=== PATIENT | female | born 1980 | race Caucasian/White ===

== ENCOUNTER → 2019-10-18 15:42 | Outpatient (CLI) | payer BC, SELFPAY ==
[2019-10-18 17:18] LABS: Absolute Lymphocyte Count 2.64 X10^3/uL (0.83-4.51); Absolute Neutrophil Count 6.8 X10^3/uL (2.0-7.7); Basophil# 0.02 X10^3/uL; Basophil% 0.2 % (0-1); Eosinophil# 0.03 X10^3/uL; Eosinophils% 0.3 % (0-5); Hematocrit 45.6 % (37-47); Hemoglobin 15.1 g/dL (12.0-15.0); Lymphocyte # 2.64 X10^3/ul (4.0); Lymphocyte % 26.5 % (19-41); Mean Corp Hgb Conc 33.1 g/dL (32-36); Mean Corpuscular Volume 90.7 fL (81-99); Mean Platelet Vol. 10.8 fl (6.2-12.0); Monocyte# 0.47 X10^3/uL; Monocyte% 4.7 % (0-10); NRBC Flagged by Analyzer 0 % (0-5); Neutrophil # 6.78 X10^3/uL (2.7-7.7); Platelet Count 262 K/mm3 (150-450); RBC Distribution Width CV 12.3 % (11.6-14.6); RBC Distribution Width SD 40.4 fl (35.1-43.9); Red Blood Count 5.03 M/mm3 (4.2-5.4)
[2019-10-18 17:49] LABS: Anion Gap 8 (5-15); BUN 15 mg/dL (7-18); BUN/Creat Ratio 17.3 RATIO (10-20); Calcium,Total 9.1 mg/dL (8.5-10.1); Chloride 105 mmol/L (98-107); Creatinine, Serum 0.87 mg/dL (0.55-1.02); EST Glomerular Filtration Rate 78 mL/min (>60); Est Glom Filt Rate - Afr Amer 95 mL/min (>60); Glucose 82 mg/dL (74-106); Magnesium 2.4 mg/dL (1.6-2.6); Potassium 3.4 mmol/L (3.5-5.1); Sodium Level 139 mmol/L (136-145); T4 Free Direct 1.12 ng/dL (0.76-1.46); Thyroid Stim Hormone (TSH) 3.03 uIU/mL (0.358-3.74)
== END ==
PROVIDERS: Family Provider Family Medicine; PCP Family Medicine; Visit Provider Family Medicine
DX: F41.8 Other specified anxiety disorders (principal); R53.83 Other fatigue; R00.2 Palpitations
CPT/HCPCS: 36415; 80048; 83735; 84439; 84443; 85025

== ENCOUNTER → 2019-10-29 15:43 | Outpatient (CLI) | payer BC, SELFPAY ==
[2015-01-08 06:23] VITALS: BMI 47.0
[2019-10-29 17:24] LABS: Anion Gap 5 (5-15); BUN 12 mg/dL (7-18); BUN/Creat Ratio 15.1 RATIO (10-20); Calcium,Total 8.8 mg/dL (8.5-10.1); Chloride 107 mmol/L (98-107); Creatinine, Serum 0.79 mg/dL (0.55-1.02); EST Glomerular Filtration Rate 86 mL/min (>60); Est Glom Filt Rate - Afr Amer 105 mL/min (>60); Glucose 82 mg/dL (74-106); Potassium 3.9 mmol/L (3.5-5.1); Sodium Level 139 mmol/L (136-145)
== END ==
LOC: LAB.FUTURE 15:53 → BFHLAB 16:01
PROVIDERS: Family Provider Family Medicine; PCP Family Medicine; Visit Provider Family Medicine
DX: E87.6 Hypokalemia (principal)
CPT/HCPCS: 36415; 80048

== ENCOUNTER → 2019-11-01 08:51 | Outpatient (CLI) | payer BC, SELFPAY | PROVIDERS: Family Provider Family Medicine; PCP Family Medicine; Referring Provider Family Medicine; Visit Provider Family Medicine | DX: R42 Dizziness and giddiness (principal) | CPT/HCPCS: 93225; 93226 ==

== ENCOUNTER → 2020-01-27 15:27 | Outpatient (CLI) | payer BC, SELFPAY ==
[2015-01-08 06:23] VITALS: BMI 47.0
[2020-01-27 17:34] LABS: Anion Gap 6 (5-15); BUN 14 mg/dL (7-18); BUN/Creat Ratio 15.5 RATIO (10-20); Calcium,Total 9.2 mg/dL (8.5-10.1); Chloride 103 mmol/L (98-107); EST Glomerular Filtration Rate 74 mL/min (>60); Est Glom Filt Rate - Afr Amer 90 mL/min (>60); Glucose 81 mg/dL (74-106); Potassium 3.6 mmol/L (3.5-5.1); Sodium Level 139 mmol/L (136-145)
== END ==
PROVIDERS: PCP Family Medicine; Visit Provider Family Medicine
DX: E87.6 Hypokalemia (principal)
CPT/HCPCS: 36415; 80048

== ENCOUNTER → 2020-02-13 16:41 | Outpatient (CLI) | payer BC, SELFPAY ==
--- NOTE | 2020-02-13 16:46 | CT_ITS ---
STUDY: CT MAXILLOFACIAL SINUSES REASON FOR EXAM: Female, 39 years old. SINUSITIS RADIATION DOSAGE (If Supplied By Facility): CTDIvol = ( 33.06 ) mGy, DLP = ( 862.77 ) mGycm TECHNIQUE: The patient was scanned in a multi detector CT scanner. High resolution axial imaging was performed without the administration of intravenous contrast material. Sagittal and coronal images were reconstructed. Individualized dose optimization techniques were used for this CT. COMPARISON: None. FINDINGS: FRONTAL SINUSES: Normal aeration, without mucosal inflammatory disease. ETHMOIDAL SINUSES: Normal aeration, without mucosal inflammatory disease. MAXILLARY SINUSES: Normal aeration, without mucosal inflammatory disease. SPHENOIDAL SINUSES: Normal aeration, without mucosal inflammatory disease. There is patency of the bilateral maxillary infundibuli with normal uncinate processes, ethmoid bullae, and hiatus semilunaris. Normal bilateral middle turbinates. Normal bilateral inferior turbinates. Normal midline nasal septum. There is patency of the bilateral nasal airways. The visualized osseous structures are normal. The visualized bilateral orbital contents are normal. CT/Sinus/Facial Bone IMPRESSION: Normal CT examination of the maxillofacial sinuses. Electronically Signed: Gideon Hylton MD at 17:26 EDT , Service support ,
== END ==
PROVIDERS: PCP Family Medicine; Referring Provider Otolaryngology; Visit Provider Otolaryngology
DX: J32.9 Chronic sinusitis, unspecified (principal)
CPT/HCPCS: 70486

== ENCOUNTER → 2020-03-31 15:35 | Outpatient (CLI) | payer BC, SELFPAY ==
[2015-01-08 06:23] VITALS: BMI 47.0
--- NOTE | 2020-03-31 15:42 | RAD_ITS ---
STUDY: X-RAY - CERVICAL SPINE REASON FOR EXAM: Female, 39 years old. CERVICALGIA PAIN IN CERVICAL SPINE TECHNIQUE: 7 view(s) of the cervical spine were obtained. COMPARISON: None FINDINGS: Normal anterior atlantoaxial articulation. Normal odontoid process. No subluxation on the flexion or extension views to suggest instability. Normal cervical lordosis. Normal vertebral bodies and endplates. Normal disc space heights. Normal visualized intervertebral neuroforamina. The soft tissue structures are unremarkable. RAD/Cerv Spine Obl/Flex/Ext Comp IMPRESSION: Normal x-ray examination of the visualized cervical spine. Electronically Signed: Huey Camejo MD at 16:13 EDT Tel , Service support ,
== END ==
PROVIDERS: PCP Family Medicine; Referring Provider Psychiatry & Neurology Neurology; Visit Provider Psychiatry & Neurology Neurology
DX: M54.2 Cervicalgia (principal)
CPT/HCPCS: 72052

== ENCOUNTER → 2020-11-03 07:19 | Outpatient (CLI) | payer BC, SELFPAY ==
[2020-10-20 08:19] VITALS: BMI 29.5
--- NOTE | 2020-11-03 07:29 | MRI_ITS ---
STUDY: MRI BRAIN WITH AND WITHOUT CONTRAST REASON FOR EXAM: Female, 40 years old. Migraine H/A, lightheaded TECHNIQUE: Standardized multiplanar fat and water weighted pulse sequences were obtained. IV Yes YES was administered for the contrast portion of the examination. COMPARISON: None. FINDINGS: Normal size of the ventricles and extra-axial spaces for the patient''s age. Normal white matter tracts of the supratentorial brain. There is no evidence for recent intracranial ischemia or other cause of cytotoxic edema on diffusion weighted imaging (DWI). Normal T2* images of the brain without demonstrated susceptibility artifact. There is no demonstrated hemosiderin stain. Normal bilateral basal ganglia. Normal thalami. There is no extra-axial fluid accumulation. Normal flow voids within the major intracranial circulation suggesting patency by spin echo criteria. Normal venous enhancement. There is no enhancing intra-axial or extra-axial abnormality. Normal sella turcica, pituitary gland, infundibular stalk, optic chiasm and hypothalamus. Normal tectal plate and pineal gland. Normal midbrain, elva and medulla. Normal cerebellum. Normal basal cisterns. Normal bilateral temporal bones. Normal bilateral internal auditory canals. No demonstrated orbital abnormality, within the constraints of a routine brain study. Normal visualized paranasal sinuses. Normal calvarium and skull base. Normal visualized soft tissue structures. Normal visualized upper cervical spine. MRI/Brain W/WO Contrast IMPRESSION: Normal unenhanced and enhanced MRI of the brain. Electronically Signed: Huey Camejo MD at 8:45 EST Tel , Service support ,
== END ==
PROVIDERS: PCP Family Medicine; Referring Provider Psychiatry & Neurology Neurology; Visit Provider Psychiatry & Neurology Neurology
DX: G43.909 Migraine, unspecified, not intractable, without status migrainosus (principal)
CPT/HCPCS: 70553; A9575

== ENCOUNTER → 2020-11-11 07:02 | Outpatient (CLI) | payer BC, SELFPAY ==
[2020-10-20 08:19] VITALS: BMI 29.5
--- NOTE | 2020-11-11 07:05 | BI_ITS ---
MAMMOGRAPHY - BILATERAL SCREENING REASON FOR EXAM: Female, 40 years old. Routine annual screening examination. PERTINENT HISTORY: Aunt with breast cancer. TECHNIQUE: Digital bilateral breast ernestina (3D mammographic acquisition) in the CC and MLO projections. 2-D mediolateral oblique (MLO) and craniocaudad (CC) views of both breasts were obtained. CAD: Full Field Digital Mammography with Computer Added Detection was performed. COMPARISON: None. Baseline examination. FINDINGS: Breast Composition: The breasts are extremely dense, which lowers the sensitivity of mammography. There are no dominant masses or suspicious calcifications. Small bilateral benign-appearing axillary lymph nodes. No other significant abnormalities are identified. There has been no significant change since the prior study. BI/SCREEN MAMM (CAD) W/ERNESTINA BILAT IMPRESSION: Stable bilateral screening mammogram. Yearly follow-up mammogram recommended. (A) ASSESSMENT CATEGORY: BIRADS Category 2: Benign. A letter regarding these results will be sent to the patient by the facility within 30 days. Approximately 10% of breast cancers are not detected by mammography. A normal mammogram should not delay biopsy of a clinically suspicious abnormality. [id number] Electronically Signed: Ry Lee, at 8:14 EST , Service support ,
[2020-11-11 08:10] LABS: Mucous, Urine 0 SEEN /hpf (<or=2+); Red Blood Cells-Urine 0 SEEN /hpf (0-5); White Blood Cells 0 SEEN /hpf (0-5)
[2020-11-11 08:49] LABS: Color, Urine Yellow (Yellow); Glucose, Dipstick Normal (Normal); Ketone-Dipstick Negative (Negative); Leukocyte Esterase-Dipstick Negative /ul (Negative); Nitrite-Dipstick Negative (Negative); Occult Blood-Urine Negative /ul (Negative); Protein-Dipstick Negative (Negative); Urine Bilirubin Dipstick Negative (Negative); Urine Clarity Sl. Cloudy (Clear); Urine Urobilinogen Normal (Normal)
[2020-11-11 08:58] LABS: Bacteria 1+ /hpf (None Seen); Squamous Epithelial Cells - UA 0-5 SEEN /hpf (5-10)
== END ==
PROVIDERS: Nurse Practitioner Family; PCP Family Medicine; Referring Provider Obstetrics & Gynecology; Visit Provider Obstetrics & Gynecology
DX: Z12.31 Encounter for screening mammogram for malignant neoplasm of breast (principal); Z80.3 Family history of malignant neoplasm of breast; R82.90 Unspecified abnormal findings in urine
CPT/HCPCS: 77063; 77067; 81001; 87086; 87088

== ENCOUNTER → 2021-01-28 09:58 | Outpatient (CLI) | payer OTHER, SELFPAY ==
[2021-01-28 10:39] LABS: Absolute Lymphocyte Count 1.79 X10^3/uL (0.83-4.51); Absolute Neutrophil Count 8.7 X10^3/uL (2.0-7.7); Basophil# 0.03 X10^3/uL; Basophil% 0.3 % (0-1); Eosinophil# 0.04 X10^3/uL; Eosinophils% 0.4 % (0-5); Hematocrit 48.1 % (37-47); Hemoglobin 15.8 g/dL (12.0-15.0); Lymphocyte # 1.79 X10^3/ul (4.0); Lymphocyte % 16.2 % (19-41); Mean Corp Hgb Conc 32.8 g/dL (32-36); Mean Corpuscular Hgb 30.6 pg (27.0-32.0); Mean Platelet Vol. 10.4 fl (6.2-12.0); Monocyte% 3.6 % (0-10); NRBC Flagged by Analyzer 0 % (0-5); Neutrophil # 8.74 X10^3/uL (2.7-7.7); Neutrophil % 79.2 % (47-70); Platelet Count 262 K/mm3 (150-450); RBC Distribution Width CV 12.3 % (11.6-14.6); RBC Distribution Width SD 42.1 fl (35.1-43.9); Red Blood Count 5.17 M/mm3 (4.2-5.4)
[2021-01-28 11:11] LABS: ALB/GLOB Ratio 1.1 RATIO (0.9-2.4); AST(SGOT) 17 U/L (15-37); Alanine Aminotransfer ALT/SGPT 27 U/L (13-56); Albumin, Serum 4.3 g/dL (3.2-5.0); Alkaline Phosphatase 71 U/L (45-117); Anion Gap 6 (5-15); BUN 12 mg/dL (7-18); Calcium,Total 9.4 mg/dL (8.5-10.1); Chloride 108 mmol/L (98-107); Creatinine, Serum 0.86 mg/dL (0.55-1.02); EST Glomerular Filtration Rate 79 mL/min (>60); Est Glom Filt Rate - Afr Amer 95 mL/min (>60); Glucose 96 mg/dL (74-106); Potassium 4.5 mmol/L (3.5-5.1); Protein, Total 8.3 g/dL (6.4-8.2); Sodium Level 141 mmol/L (136-145); Thyroid Stim Hormone (TSH) 2.01 uIU/mL (0.358-3.74)
[2021-01-28 12:50] LABS: Vitamin B12 1249 pg/mL (211-911)
== END ==
PROVIDERS: PCP Family Medicine; Referring Provider Nurse Practitioner Family; Visit Provider Nurse Practitioner Family
DX: G43.909 Migraine, unspecified, not intractable, without status migrainosus (principal); J32.9 Chronic sinusitis, unspecified; R53.83 Other fatigue
CPT/HCPCS: 36415; 80053; 82306; 82607; 84443; 85025

== ENCOUNTER → 2021-03-30 08:34 | Outpatient (CLI) | payer OTHER, SELFPAY ==
[2021-03-30 09:35] LABS: Absolute Lymphocyte Count 2.24 X10^3/uL (0.83-4.51); Absolute Neutrophil Count 6.4 X10^3/uL (2.0-7.7); Basophil# 0.03 X10^3/uL; Basophil% 0.3 % (0-1); Eosinophil# 0.07 X10^3/uL; Eosinophils% 0.8 % (0-5); Hemoglobin 15.7 g/dL (12.0-15.0); Lymphocyte # 2.24 X10^3/ul (0.83-4.51); Lymphocyte % 24.1 % (19-41); Mean Corp Hgb Conc 32.7 g/dL (32-36); Mean Corpuscular Hgb 30.3 pg (27.0-32.0); Mean Corpuscular Volume 92.5 fL (81-99); Mean Platelet Vol. 10.8 fl (6.2-12.0); Monocyte# 0.53 X10^3/uL; Monocyte% 5.7 % (0-10); NRBC Flagged by Analyzer 0 % (0-5); Neutrophil # 6.39 X10^3/uL (2.7-7.7); Neutrophil % 68.7 % (47-70); Platelet Count 255 K/mm3 (150-450); RBC Distribution Width CV 12.2 % (11.6-14.6); RBC Distribution Width SD 41.9 fl (35.1-43.9); Red Blood Count 5.19 M/mm3 (4.2-5.4); White Blood Count 9.3 K/mm3 (4.4-11.0)
[2021-03-30 10:05] LABS: AST(SGOT) 18 U/L (15-37); Alanine Aminotransfer ALT/SGPT 32 U/L (13-56); Albumin, Serum 3.9 g/dL (3.2-5.0); Alkaline Phosphatase 60 U/L (45-117); Bilirubin, Direct 0.31 mg/dL (0.00-0.30); Globulin 3.6 g/dL (2.2-4.2); Protein, Total 7.5 g/dL (6.4-8.2)
== END ==
PROVIDERS: PCP Family Medicine; Referring Provider Nurse Practitioner Family; Visit Provider Nurse Practitioner Family
DX: D58.2 Other hemoglobinopathies (principal); R79.89 Other specified abnormal findings of blood chemistry
CPT/HCPCS: 36415; 80076; 85025

== ENCOUNTER → 2021-05-11 09:52 | Outpatient (CLI) | payer OTHER, SELFPAY ==
[2021-05-11 09:09] VITALS: BMI 31.2
--- NOTE | 2021-05-11 09:54 | RAD_ITS ---
STUDY: X-RAY - CERVICAL SPINE REASON FOR EXAM: Female, 40 years old. Chronic neck pain; dizziness TECHNIQUE: 3 view(s) of the cervical spine were obtained. COMPARISON: Comparison is made with prior study dated 03/31/2020. FINDINGS: Normal anterior atlantoaxial articulation. Normal odontoid process. There is straightening of the normal cervical lordosis. Normal vertebral bodies and endplates. Normal disc space heights. Normal visualized intervertebral neuroforamina. The soft tissue structures are unremarkable. RAD/Cerv Spine 2 or 3 Views IMPRESSION: There is straightening of the normal cervical lordosis. Electronically Signed: Ry Lee MD at 13:36 EDT , Service support ,
== END ==
PROVIDERS: PCP Family Medicine; Referring Provider Nurse Practitioner Family; Visit Provider Nurse Practitioner Family
DX: M54.2 Cervicalgia (principal); R42 Dizziness and giddiness; E55.9 Vitamin D deficiency, unspecified
CPT/HCPCS: 36415; 72040; 82306

== ENCOUNTER → 2021-05-26 10:15 | Outpatient (CLI) | payer OTHER, SELFPAY ==
[2021-05-11 09:09] VITALS: BMI 31.2
--- NOTE | 2021-05-26 10:15 | MRI_ITS ---
STUDY: MRI CERVICAL SPINE WITHOUT CONTRAST REASON FOR EXAM: Female, 40 years old. chronic neck pain; PT completed TECHNIQUE: Standardized fat and water weighted pulse sequences were obtained in the sagittal and axial planes. COMPARISON: X-ray 05/11/2021 FINDINGS: Normal foramen magnum and brainstem-cervical cord junction. Normal craniovertebral junction. Normal anterior atlantoaxial articulation. Normal odontoid process. Normal cervical lordosis. Normal vertebral bodies and posterior osseous elements. C2-3: Normal endplates. Normal disc height, signal and morphology. Normal central canal and intervertebral neural foramina. C3-4: Normal endplates. Normal disc height, signal and morphology. Normal central canal and intervertebral neural foramina. C4-5: Normal endplates. Normal disc height, signal and morphology. Normal central canal and intervertebral neural foramina. C5-6: Normal endplates. Normal disc height, signal and morphology. Normal central canal and intervertebral neural foramina. C6-7: Normal endplates. Normal disc height, signal and morphology. Normal central canal and intervertebral neural foramina. C7-T1: Normal endplates. Normal disc height, signal and morphology. Normal central canal and intervertebral neural foramina. Normal cervical cord. Normal visualized soft tissue structures. MRI/Spine Cervical (Routine) IMPRESSION: Normal unenhanced MR examination of the cervical spine. Electronically Signed: Huey Camejo MD at 18:39 EDT Tel , Service support ,
== END ==
PROVIDERS: PCP Family Medicine; Referring Provider Nurse Practitioner Family; Visit Provider Nurse Practitioner Family
DX: M54.2 Cervicalgia (principal); G89.29 Other chronic pain; M53.82 Other specified dorsopathies, cervical region
CPT/HCPCS: 72141

== ENCOUNTER 2021-07-02 07:30 | Outpatient (RCR) | payer OTHER, SELFPAY ==
[2020-10-20 08:19] VITALS: BMI 29.5
--- NOTE | 2021-04-02 10:21 | HP.PTEVAL_ITS ---
Patient's Visit Information ELLE GOODE is a 40 year old F referred to Physical Therapy by BETZY Martinez with a diagnosis of BPV and cervicalgia. Date of Evaluation: 04/02/21 Physical Therapist: Luis Severino, PATT, OCS, CSCS - Visit Plan Frequency: 2x /Week Duration: 4-6 Weeks Plan: 2x/week for 4 weeks for. 1. Treated with R epey today and monitor need for further positional or possible VOR treatments. 2. Please treat each session with STM to R c/s, R rot mobs and PROM to neck, ICT adn strengthening of neck/posture. - Subjective Dr. Mancilla office sent over as she has some lightheadedness and BANKS starting in September of 2019. Been to ENT, 2 neuro and trying to figure out what is going on. Has had scans of head which were normal(CT adn MRI). X ray of neck was OA. Had VNG adn it was clear. Had halter monitor to rule out heart. Bloodwork was OK(just elevated hemoglobin). Symptoms are loghtheadedness adn BANKS adn insidous onset. Lightheadedness was first, no spinning but feels like lightheaded for a second if stands up too quick.. Makes her have to move slow. Pretty consistent. Looking up for long time can cause it. Sleeping on back can give her a BANKS, sleeping on side is fine. Long car rides can bother her. Putting back to wash hair can give BANKS. BANKS is usually posterior behind ears and sometimes daily other times about 2x/week. Balance is fine, no falls. Working from home and no problem sittign at computer. Looking down at work and hunching can give her some neck pain. - Pain BANKS Pain Intensity (Out of 10): 6 Pain Intensity Range: 0, 5 Neck pain Pain Intensity (Out of 10): 0 Pain Intensity Range: 0, 4 Comment: looking down - Objective walks normal and trasnfers I, steps reciprocal without rail. Posture is forward head and scapula with loss of lordosis slightly. cervical AROM is full and only abnormaity is some slight R rotation loss of ROM and pain with compression on R side slightly. reflexes and sensation UE WNl to gross light touch. strength UE symmetrical. - VAT. slight + R c/s compression test. - L hallpike oli. + R hallpike for lightheaded 8 seconds asymmetrically but no obvious nystagmus. Oculomotor: no nystagmus with gaze or head shake, slight dizzy with head shake(lightheaded). - skew eye deviation. - ocular tilt. - head thrust. pursuit and saccades and VOR are all normal and asymptomatic. - Balance Scores Functional Gait Assessment Score: 30 % Disability: 0 - Goals Goal 1:: abolish lightheadedness and BANKS Goal Time Frame: 4-6 Weeks Goal 2:: Pt feel 90% better overall and able to walk without symptoms Goal Time Frame: 4-6 Weeks Goal 3:: I management of condition to minize future episodes. Goal Time Frame: 4-6 Weeks Goal 4:: DHI 0 score Goal Time Frame: 4-6 Weeks - Rehabilitation Potential Physical Therapy Diagnosis: H and lightheaded unknown etiology, possible BPV vs cervcogenic. Rehabilitation Potential: Questionable - Anticipated Interventions Patient/Client Instruction: Educate patient on: Condition For the Purpose of:: To decrease pain, To increase tolerance to activity/condition/position Therapeutic Exercise to Include: Strength training, Flexibilty training, Passive ROM Comment: positional and adaptation For the Purpose of:: To decrease pain, To increase ROM, To increase tolerance to activity/condition/position Manual Therapy Techniques to Include: Soft tissue mobilization For the Purpose of:: To decrease pain, To increase ROM, To increase tolerance to activity/condition/position Thank you for the opportunity to evaluate your patient. For Medicare and Medicare HMO plans, please review the plan of care and approve it. It will need to be FAXED BACK to us at [phone] for Medicare purposes. For Medicare only, by signing this I certify the plan of care. Please let me know if there are questions or concerns regarding this plan of care. Physician Signature: Date:
--- NOTE | 2021-04-23 09:21 | HP.PTREVAL_ITS ---
Isis Mendoza, CAFETERIA COUNTER ATTENDANT-C, It has been my pleasure to treat ELLE GOODE over the last 7 visits for BPV and cervicalgia. Please see the progress note below for an update on the physical therapy plan of care! Subjective: Going the right way. Lightheadedness is sporadic but has very little over last two weeks. Still has tightness in R neck, treatment helps but not for long. Have not had any H in the last couple weeks. Been doing a lot of work around the house that she would have avoided prior. Doing exercises at home.Doing BD also 1x/day 8 reps. Wants to work on ex at home from this point until doctor f/u in two weeks. Lights in [place] seem to trigger lightheadedness yesterday Objective/Function: R rotation c.s 70 v 75 L and slight catch at end trasniently. Improving. No tenderness in soft tissue of neck today, slight + c/s compression test. - B garry;william oli today but still some slight dizzyness with r hallpike, will continue BD ex at home for this as they are improving. Walking well with good balance. VOR , VORx2, VOR in stairwell with spindles cause very little lightheadedness and no lingering. - ocular tilt. -skew eye deviation. no nystagmus today with gaze or head shake. Overall improving and feeling like she can continue to make progress on own with HEP. Plan Plan: Pt to cotninue HEP until doctor f/u in two weeks and then call if needs return. If she continue to improve, she will probably not need further therapy. And will d/c or reassess condition as needed after doc f/u in mid April. Pt to call. Goals Goal 1:: abolish lightheadedness and BANKS Goal Time Frame: 4-6 Weeks Goal Progress: near met Goal 2:: Pt feel 90% better overall and able to walk without symptoms Goal Time Frame: 4-6 Weeks Goal Progress: 75% Goal 3:: I management of condition to minize future episodes. Goal Time Frame: 4-6 Weeks Goal Progress: Goal Met Goal 4:: DHI 0 score Goal Time Frame: 4-6 Weeks Goal Progress: Progressing Anticipated Interventions Patient/Client Instruction: Educate patient on: Condition For the Purpose of:: To decrease pain, To increase tolerance to activity/condition/position Therapeutic Exercise to Include: Strength training, Flexibilty training, Passive ROM Comment: positional and adaptation For the Purpose of:: To decrease pain, To increase ROM, To increase tolerance to activity/condition/position Manual Therapy Techniques to Include: Soft tissue mobilization For the Purpose of:: To decrease pain, To increase ROM, To increase tolerance to activity/condition/position Please do not hesitate to contact me at [phone] by phone or if you have questions or concerns regarding this new plan of care! Sincerely, Luis Severino, DPT, OCS, CSCS
--- NOTE | 2021-05-13 15:17 | HP.PTREVAL ---
Isis Mendoza, FARM EQUIPMENT MAINTENANCE SUPERVISOR-C, It has been my pleasure to treat ELLE GOODE over the last 8 visits for BPV and cervicalgia. Please see the progress note below for an update on the physical therapy plan of care! Subjective: Saw doctor. Lightheadedness a little worse without traction. Some minor pain in neck centrally /10. she is back in the office so it is more normal lately. Doctor wants continue traction intermittently. No dizzyness with exercise at home. Still doing stretching adn strengthening at home. Mobility is still good like last time, lightheadedness slightly worse. x rays of the neck today were OK. Objective/Function: 80 degrees B rotation 85 extension without pain. 4/5 UE strength withotu difficulty. No unusual tenderness c/s. Doctor wants more traction therapy adn it is appropriate for her subjective complaints. fair prognosis Plan Plan: weekly x 6 weeks for ICT only(pt doing rest of strength adn postural work/ stretches at home. Goals Goal 1:: abolish lightheadedness and BANKS Goal Time Frame: 4-6 Weeks Goal Progress: near met Goal 2:: Pt feel 90% better overall and able to walk without symptoms Goal Time Frame: 4-6 Weeks Goal Progress: 75% Goal 3:: I management of condition to minize future episodes. Goal Time Frame: 4-6 Weeks Goal Progress: Goal Met Goal 4:: DHI 0 score Goal Time Frame: 4-6 Weeks Goal Progress: Progressing Goal 5:: Lightheadedness abolished for 2 weeks. Goal Time Frame: 4-6 Weeks Goal Progress: NEW GOAL Anticipated Interventions Patient/Client Instruction: Educate patient on: Condition For the Purpose of:: To decrease pain, To increase tolerance to activity/condition/position Therapeutic Exercise to Include: Strength training, Flexibilty training, Passive ROM Comment: positional and adaptation For the Purpose of:: To decrease pain, To increase ROM, To increase tolerance to activity/condition/position Manual Therapy Techniques to Include: Soft tissue mobilization For the Purpose of:: To decrease pain, To increase ROM, To increase tolerance to activity/condition/position Please do not hesitate to contact me at [phone] by phone or if you have questions or concerns regarding this new plan of care! Sincerely, Luis Severino, DPT, OCS, CSCS
--- NOTE | 2021-07-02 08:16 | HP.PTDCSUM_ITS ---
It has been my pleasure to treat ELLE GOODE referred by BETZY Martinez, with the diagnosis of BPV and cervicalgia for a total of 14 visit(s). Discharge Date: 07/02/21 Please see the following information for a summary of their discharge status. Subjective: I think we are getting better. Don't have as many days where generally lightheaded. Still gets dysequilibrium with bending or turning too fast. It is not improving like the lightheadedness and neck pain has. No outright spinning. Can work on things without neck hurting as much. Painted a room this week and was 3/10 in neck for a n hour or so. No f/u with doctor until end July. Traction seems to help as she has not been in for two weeks adn things are starting to feel off. Home exercises of chin tucks and necks streetches seem to help. Strenghtening with green adn blue at home 2x15 BANKS Pain Intensity (Out of 10): 0 Neck pain Pain Intensity (Out of 10): 0 % Improvement: 80 Objective/Function: good balance. - B hallpike oli and roll test. Full cervi alana AROM without pain today, Full UE AROM and 4+/5 strength without pain or myotomal problems. Posture is good without cueing today. Overall much better Goal 1:: abolish lightheadedness and BANKS Goal Progress: near met Goal 2:: Pt feel 90% better overall and able to walk without symptoms Goal Progress: 80 Goal 3:: I management of condition to minize future episodes. Goal Progress: Goal Met Goal 4:: DHI 0 score Goal Progress: much improved 6 Goal 5:: Lightheadedness abolished for 2 weeks. Goal Progress: Not Progressing Plan: Pt to marita with strengtha dn ROM neck at home and [place] exercises up to 8 reps daily until lightheaded gone or doctor f/u. D/C PT Discharge Comments: to doctor in July. If there are questions or concerns regarding this patient's physical therapy, please feel free to call me at [phone]. Thank you for the referral of this patient. Sincerely, Luis Severino, DPT, OCS, CSCS Balance/Gait/Functional tests - Balance/Special Test Scores Functional Gait Assessment Score: 30 % Disability: 0 Dizziness Score: 6
== END 2021-07-02 19:00 | disposition home or self-care (01) ==
LOC: PT 07:30
PROVIDERS: PCP Family Medicine; Referring Provider Nurse Practitioner Family; Visit Provider Nurse Practitioner Family
DX: M54.2 Cervicalgia (principal); H81.10 Benign paroxysmal vertigo, unspecified ear
CPT/HCPCS: 97012; 97110; 97140; 97162; 97164; 97530

== ENCOUNTER → 2021-08-17 09:01 | Outpatient (CLI) | payer OTHER, SELFPAY ==
--- NOTE | 2021-08-17 09:08 | BI_ITS ---
MAMMOGRAPHY - BILATERAL DIAGNOSTIC REASON FOR EXAM: Female, 41 years old. Right breast thickening and achiness. PERTINENT HISTORY: Aunt with breast cancer. TECHNIQUE: Digital bilateral breast jerrod (3D mammographic acquisition) in the CC and MLO projections. 2-D mediolateral oblique (MLO) and craniocaudad (CC) views of both breasts were obtained. CAD: Full Field Digital Mammography with Computer Added Detection was performed. COMPARISON: Comparison is made with prior study dated 11/11/2020. FINDINGS: Breast Composition: The breasts are extremely dense, which lowers the sensitivity of mammography. There are no dominant masses or suspicious calcifications. No other significant abnormalities are identified. There has been no significant change since the prior study. BI/DIAG MAMM W/CAD, BILAT IMPRESSION: Stable bilateral diagnostic mammogram. One year follow-up recommended. (A) ASSESSMENT CATEGORY: BIRADS Category 1: Negative. A letter regarding these results will be sent to the patient by the facility within 30 days. Approximately 10% of breast cancers are not detected by mammography. A normal mammogram should not delay biopsy of a clinically suspicious abnormality. Electronically Signed: Ry Lee MD at 11:10 EDT , Service support ,
--- NOTE | 2021-08-17 09:08 | US_ITS ---
STUDY: ULTRASOUND BREAST - RIGHT REASON FOR EXAM: Female, 41 years old. Pain in the right breast. TECHNIQUE: Axial and longitudinal images of the RIGHT breast were performed with a high resolution ultrasound transducer. # OF IMAGES: 17 COMPARISON: Comparison is made with prior mammogram done earlier today. FINDINGS: RIGHT Breast: The upper outer quadrant of the right breast was examined by ultrasound. No sonographic abnormality seen. US/Breast Limited Unilateral IMPRESSION: Unremarkable sonographic examination. ASSESSMENT CATEGORY: BIRADS Category 1: Negative. A letter regarding these results will be sent to the patient by the facility within 30 days. Electronically Signed: Ry Lee MD at 10:34 EDT , Service support ,
== END ==
PROVIDERS: PCP Family Medicine; Referring Provider Obstetrics & Gynecology; Visit Provider Obstetrics & Gynecology
DX: N64.4 Mastodynia (principal)
CPT/HCPCS: 76642; 77062; 77066; G0279

== ENCOUNTER → 2021-10-19 14:52 | Outpatient (CLI) | payer OTHER, SELFPAY ==
[2021-10-19 17:43] LABS: Absolute Lymphocyte Count 2.78 X10^3/uL (0.83-4.51); Basophil# 0.04 X10^3/uL; Basophil% 0.3 % (0-1); Eosinophil# 0.09 X10^3/uL; Eosinophils% 0.7 % (0-5); Hematocrit 46.7 % (37-47); Hemoglobin 15.2 g/dL (12.0-15.0); Lymphocyte # 2.78 X10^3/ul (0.83-4.51); Lymphocyte % 20.6 % (19-41); Mean Corp Hgb Conc 32.5 g/dL (32-36); Mean Corpuscular Hgb 29.5 pg (27.0-32.0); Mean Corpuscular Volume 90.5 fL (81-99); Mean Platelet Vol. 9.8 fl (6.2-12.0); Monocyte# 0.52 X10^3/uL; Monocyte% 3.9 % (0-10); NRBC Flagged by Analyzer 0 % (0-5); Neutrophil # 10.01 X10^3/uL (2.7-7.7); Neutrophil % 74.3 % (47-70); Platelet Count 280 K/mm3 (150-450); RBC Distribution Width SD 39.8 fl (35.1-43.9); Red Blood Count 5.16 M/mm3 (4.2-5.4); White Blood Count 13.5 K/mm3 (4.4-11.0)
[2021-10-19 18:01] LABS: Vitamin D,25 Hydroxy 39.9 ng/mL
[2021-10-19 18:05] LABS: AST(SGOT) 18 U/L (15-37); Alanine Aminotransfer ALT/SGPT 33 U/L (13-56); Albumin, Serum 4.1 g/dL (3.2-5.0); Alkaline Phosphatase 75 U/L (45-117); Bilirubin, Direct 0.31 mg/dL (0.00-0.30); Protein, Total 8.1 g/dL (6.4-8.2)
== END ==
PROVIDERS: PCP Family Medicine; Referring Provider Nurse Practitioner Family; Visit Provider Nurse Practitioner Family
DX: R79.89 Other specified abnormal findings of blood chemistry (principal); R17 Unspecified jaundice
CPT/HCPCS: 36415; 80076; 82306; 85025

== ENCOUNTER → 2021-11-25 11:40 | Outpatient (CLI) | payer OTHER, SELFPAY ==
[2021-11-25 12:14] LABS: Hematocrit 43.2 % (37-47); Hemoglobin 14.5 g/dL (12.0-15.0); Mean Corp Hgb Conc 33.6 g/dL (32-36); Mean Corpuscular Hgb 30.3 pg (27.0-32.0); Mean Corpuscular Volume 90.4 fL (81-99); Mean Platelet Vol. 9.8 fl (6.2-12.0); Platelet Count 234 K/mm3 (150-450); RBC Distribution Width CV 12.3 % (11.6-14.6); RBC Distribution Width SD 40.2 fl (35.1-43.9); Red Blood Count 4.78 M/mm3 (4.2-5.4); White Blood Count 9.7 K/mm3 (4.4-11.0)
== END ==
PROVIDERS: PCP Family Medicine; Visit Provider Nurse Practitioner Family
DX: R79.89 Other specified abnormal findings of blood chemistry (principal)
CPT/HCPCS: 36415; 85027

== ENCOUNTER 2022-01-04 08:39 | Outpatient (CLI) | payer OTHER, SELFPAY ==
[2022-01-04 09:32] LABS: D-Dimer Quantitative (DVT/PE) 0.68 FEU/ug/m (0.27-0.49)
--- NOTE | 2022-01-04 13:17 | VDLE_ITS ---
Reason For Study: pain Procedure LEFT This is a venous duplex using B-mode, color GSV is normal. flow and spectral Doppler. CFV is compressible, spontaneous, phasic, Exam performed in department. competent, and demonstrates normal The exam was abbreviated due to the COVID 19 augmentation. protocol. FV is compressible, spontaneous, phasic, The exam was diagnostic. competent and demonstrates normal A preliminary report was called and/or faxed augmentation. to Dr. Aleks Recio. POP V is compressible, spontaneous, phasic, competent and demonstrates normal augmentation. T/P Trunk is compressible. PTV is compressible. LT PerV is compressible. VL/Venous Duplex US, Unilateral Interpretation Summary There is no evidence of left lower extremity deep vein thrombosis. Left great s aphenous vein appears patent and compressible segmentally. Abbreviated COVID-19 protocol utilized Ordering Physician: Edu Recio Performed By: Rafal Ferguson RVT
== END 2022-01-04 23:59 | disposition home or self-care (01) ==
PROVIDERS: PCP Family Medicine; Referring Provider Orthopaedic Surgery; Visit Provider Orthopaedic Surgery
DX: D17.24 Benign lipomatous neoplasm of skin and subcutaneous tissue of left leg (principal); M79.662 Pain in left lower leg
CPT/HCPCS: 36415; 85379; 93971

== ENCOUNTER 2022-01-05 09:00 | Emergency (ER) | payer OTHER, SELFPAY ==
[2022-01-05 09:01] VITALS: BP 150/97; PULSE 89; RESP 16; TEMP 36.8; O2SAT 99; BMI 29.9
--- NOTE | 2022-01-05 09:14 | EKG12_ITS ---
Test Reason : AB LABS Blood Pressure : / mmHG Vent. Rate : 072 BPM Atrial Rate : 072 BPM P-R Int : 162 ms QRS Dur : 084 ms QT Int : 356 ms P-R-T Axes : 048 063 020 degrees QTc Int : 389 ms Normal sinus rhythm with sinus arrhythmia Nonspecific T wave abnormality Confirmed by RAI LUCIANO, LEMUEL ([id number]), television news video editor ELLA BAZZI ([id number]) on 01/07/2022 10:14:22 AM Referred By: Confirmed By:LEMUEL ATWOOD MD
--- NOTE | 2022-01-05 09:14 | CT_ITS ---
STUDY: CTA CHEST REASON FOR EXAM: Female, 41 years old. chest pain RADIATION DOSAGE (If Supplied By Facility): CTDIvol = ( 7.05 ) mGy, DLP = ( 239.00 ) mGycm TECHNIQUE: The examination was performed with the intravenous administration of IV 100mL Isovue-370. Post-processing of the angiographic images was performed, with multiplanar reformation and 3D reconstruction. Individualized dose optimization techniques were used for this CT. COMPARISON: Chest x-ray earlier today FINDINGS: Normal enhancement of the main pulmonary artery and right and left pulmonary arteries. Normal enhancement of the bilateral peripheral pulmonary arteries. There is no demonstrated pulmonary embolism. Normal thoracic aorta and visualized great vessels. There is no demonstrated aortic dissection. Normal heart and pericardium. Normal mediastinum. Normal hilar regions. Normal visualized trachea and bronchi. The lungs are well expanded. Normal pulmonary parenchyma. Normal pleura. Normal chest wall structures. Normal osseous structures. Normal visualized upper abdomen. CT/CTA Chest W/WO Contrast IMPRESSION: Normal CTA chest examination, without a demonstrated pulmonary embolism or arterial dissection. Electronically Signed: Huey Camejo MD at 10:17 EST ,
--- NOTE | 2022-01-05 09:15 | EX.ED.DYSGE1 ---
HPI History of Present Illness Chief Complaint: Abn Labs Narrative Narrative: 41-year-old female presenting with intermittent sharp chest pains which have been present for about 2 weeks. These last only seconds. They appear to be in different places of the chest different times. Patient states that she is not short of breath. She does not have a cough, fever, chills. She denies cardiac history. She does not have any cardiac risk factors. Patient has no history of DVT/PE and no risk factors either. Patient states that she has had some leg swelling in the left lower extremity recently and her primary care physician did an ultrasound to rule out DVT and her ultrasound was negative. After this because of the chest pain he ordered a D-dimer which was elevated. Patient is sent to the emergency room to rule out PE. She states he has not had any other blood work or an EKG. [facility] Medical History Chronic neck pain Disequilibrium Fatigue History of uterine fibroid Low vitamin D level Migraine headache Other specified dorsopathies, cervical region Home Medications multivitamin 1 tab PO DAILY 01/01/15 [History Last Taken Unknown] Multi Collagen Plus type 1,2,3,5,10 3 cap PO DAILY 10/19/20 [History Last Taken Unknown] baclofen 10 mg tablet 5 - 10 mg PO TID PRN #90 tablet 03/11/21 [Rx Last Taken Unknown] cholecalciferol (vitamin D3) 25 mcg (1,000 unit) capsule 25 mcg PO DAILY 03/11/21 [History Last Taken Unknown] diclofenac potassium 50 mg tablet 50 mg PO TID PRN #90 tablet 03/11/21 [Rx Last Taken Unknown] Home Traction Unit #1 ea 05/17/21 [Rx Last Taken Unknown] omeprazole 40 mg capsule,delayed release 40 mg PO DAILY PRN cap 12/14/21 [History Last Taken Unknown] rizatriptan 10 mg tablet See Rx Instructions PO .COMPLEX #9 tab 12/14/21 [Rx Last Taken Unknown] topiramate 25 mg tablet 25 mg PO DAILY tab 12/14/21 [History Last Taken Unknown] Allergy/AdvReac Type Severity Reaction Status Date / Time levofloxacin [From Levaquin] Allergy Severe rash Verified 01/05/22 09:03 Family History Mother Arthritis Heart disease Aunt Breast cancer Father Cancer Skin cancer Hypertension Hyperlipidemia Gilbert's disease Grandfather Cancer Skin cancer Gilbert's disease Grandmother Parkinson's disease Surgical History History of partial hysterectomy Social History Smoking Status: Never smoker alcohol intake: former substance use type: does not use ROS ROS ED Constitutional Constitutional ED: Denies chills, fever(s) or sweats Eyes Eyes: Denies blurry vision or change in vision ENT ENT ED: Denies rhinorrhea or sore throat Cardiovascular Cardiovascular: Reports chest pain; Denies palpitations or racing heartbeat Respiratory/Chest Respiratory/Chest: Denies cough, dyspnea or dyspnea on exertion Gastrointestinal Gastrointestinal: Denies abdominal pain, nausea or vomiting Genitourinary Genitourinary ED: Denies dysuria or hematuria Musculoskeletal Musculoskeletal: Denies myalgias or neck pain Integumentary Denies rash Neurologic Neurologic: Denies headache(s), paresthesias or weakness EXAM Physical Exam Const Vital Signs: 01/05/22 09:01 01/05/22 09:08 01/05/22 09:35 Temperature 98.2 F Temperature Source Temporal Pulse Rate 89 Respiratory Rate 16 Respiratory Effort Normal Non-Labored Blood Pressure 150/97 H Blood Pressure Mean 114 Pulse Ox 99 Oxygen Delivery Method Room Air Room Air 01/05/22 11:16 01/05/22 12:05 Temperature Temperature Source Pulse Rate 73 84 Respiratory Rate 13 16 Respiratory Effort Blood Pressure 148/82 H Blood Pressure Mean Pulse Ox 100 100 Oxygen Delivery Method Room Air Positive well nourished General Appearance ED: NAD; Negative for pallor HEENT Reports moist mucous membranes Negative for trauma Eyes PERRL and EOMs intact bilaterally Chest Wall inspection of chest normal and palpation of chest normal Resp normal respiratory effort and clear to auscultation bilaterally Cardio regular rate and regular rhythm Extremity normal to inspection Neuro oriented x3, CN's II-XII intact bilaterally and no sensory deficits noted Sensorium / Orientation: alert Motor Exam: strength 5/5 throughout Psych mental status grossly normal Skin no rashes or lesions noted General Skin Exam: Negative for jaundice or pallor MDM MDM MDM Narrative Medical decision making narrative: Since the patient is reporting chest pain and her primary care physician only did a D-dimer I did check blood work and an EKG. EKG on my interpretation is normal sinus rhythm with a ventricular rate of 72 bpm without signs of ischemic change or dysrhythmia. Chest x-ray my interpretation no acute cardiopulmonary process and the radiologist agree. CBC and BMP are unremarkable. High-sensitivity troponin initially is 3 and down troponin is 4. This was not ACS. CTA of the chest was performed due to elevated D-dimer and this is negative for acute pulmonary emboli or dissection. There is no other acute findings on the CTA. Patient counseled on findings and I feel she safe to be discharged home. She will follow-up with her PCP on an outpatient basis. Impression: 1. Chest pain Lab Data Labs: Laboratory Results - last 24 hr 01/05/22 01/05/22 01/05/22 09:34 09:34 11:14 WBC 9.3 RBC 5.23 Hgb 16.2 H Hct 47.8 H MCV 91.4 MCH 31.0 MCHC 33.9 RDW Std Deviation 39.8 RDW Coeff of William 11.9 Plt Count 257 MPV 9.9 Immature Gran % (Auto) 0.200 Neut % (Auto) 79.1 H Lymph % (Auto) 16.1 L [place] % (Auto) 4.0 Eos % (Auto) 0.3 Baso % (Auto) 0.3 Absolute Neuts (auto) 7.4 Absolute Lymphs (auto) 1.50 Nucleated RBC % 0 Sodium 139 Potassium 3.8 Chloride 107 Carbon Dioxide 27.0 Anion Gap 5 BUN 12 Creatinine 0.98 Estim Creat Clear Calc 69.35 Est GFR (MDRD) Af Amer 81 Est GFR (MDRD) Non-Af 67 BUN/Creatinine Ratio 12.2 Glucose 86 Calcium 10.0 Troponin I High Sens < 3 L 4 Radiography Diagnostic Testing: Clinical Impression(s) from Imaging Studies Chest CTA 01/05/22 09:14 IMPRESSION: Normal CTA chest examination, without a demonstrated pulmonary embolism or arterial dissection. Electronically Signed: Huey Camejo MD at 10:17 EST , Chest X-Ray 01/05/22 09:40 IMPRESSION: Normal x-ray examination of the chest. Electronically Signed: Huey Camejo MD at 9:59 EST , Discharge Plan Triage Chief Complaint: Abn Labs ED Provider: Ian Arnett Dx/Rx/DC Orders Instructions: ED Chest Pain, Uncertain Cause Prescriptions: No Action Multi Collagen Plus type 1,2,3,5,10 3 cap PO DAILY RF: 0 diclofenac potassium 50 mg tablet 50 mg PO TID PRN (Reason: pain) Qty: 90 RF: 1 baclofen 10 mg tablet 5 - 10 mg PO TID PRN (Reason: neck pain) Qty: 90 RF: 1 cholecalciferol (vitamin D3) 25 mcg (1,000 unit) capsule 25 mcg PO DAILY RF: 0 omeprazole 40 mg capsule,delayed release(DR/EC) 40 mg PO DAILY PRN (Reason: Acid Reflux) RF: 0 rizatriptan 10 mg tablet See Rx Instructions PO .COMPLEX Qty: 9 RF: 5 topiramate 25 mg tablet 25 mg PO DAILY RF: 0 multivitamin 1 TABLET tablet 1 tab PO DAILY RF: 0 (DME) Home Traction Unit See Rx Instructions .Route .MEDSUPPLY Qty: 1 RF: 0 Primary Care Provider: Sánchez Lopez Referrals: Sánchez Lopez MD [Primary Care Provider] - Disposition Disposition: Home, Self Care Discharge Date/Time: 01/05/22 12:06
--- NOTE | 2022-01-05 09:18 | NURSING ---
NO OLD EKGS
--- NOTE | 2022-01-05 09:40 | RAD_ITS ---
STUDY: X-RAY CHEST REASON FOR EXAM: Female, 41 years old. chest pain TECHNIQUE: Single AP portable view of the chest. COMPARISON: None. FINDINGS: The lungs are clear and expanded. There is no demonstrated pleural abnormality. Normal size heart. Normal mediastinum and bin. Normal visualized pulmonary arteries. Normal visualized aortic arch and descending thoracic aorta. Normal visualized thoracic spine. Normal visualized ribs, clavicles, and shoulders. There is no demonstrated abnormality of the visualized soft tissue structures of the upper abdomen. RAD/Chest 1 View (Portable) IMPRESSION: Normal x-ray examination of the chest. Electronically Signed: Huey Camejo MD at 9:59 EST ,
[2022-01-05 09:45] LABS: Absolute Neutrophil Count 7.4 X10^3/uL (2.0-7.7); Basophil# 0.03 X10^3/uL; Basophil% 0.3 % (0-1); Eosinophil# 0.03 X10^3/uL; Eosinophils% 0.3 % (0-5); Hematocrit 47.8 % (37-47); Hemoglobin 16.2 g/dL (12.0-15.0); Lymphocyte % 16.1 % (19-41); Mean Corp Hgb Conc 33.9 g/dL (32-36); Mean Corpuscular Volume 91.4 fL (81-99); Mean Platelet Vol. 9.9 fl (6.2-12.0); Monocyte# 0.37 X10^3/uL; NRBC Flagged by Analyzer 0 % (0-5); Neutrophil # 7.38 X10^3/uL (2.7-7.7); Neutrophil % 79.1 % (47-70); Platelet Count 257 K/mm3 (150-450); RBC Distribution Width CV 11.9 % (11.6-14.6); RBC Distribution Width SD 39.8 fl (35.1-43.9); Red Blood Count 5.23 M/mm3 (4.2-5.4); White Blood Count 9.3 K/mm3 (4.4-11.0)
[2022-01-05 10:03] LABS: Anion Gap 5 (5-15); BUN 12 mg/dL (7-18); BUN/Creat Ratio 12.2 RATIO (10-20); Chloride 107 mmol/L (98-107); Creatinine, Serum 0.98 mg/dL (0.55-1.02); EST Glomerular Filtration Rate 67 mL/min (>60); Est Glom Filt Rate - Afr Amer 81 mL/min (>60); Estimated Creatinine Clearance 69.35 ml/min; Glucose 86 mg/dL (74-106); Potassium 3.8 mmol/L (3.5-5.1); Sodium Level 139 mmol/L (136-145); Troponin-I HS < 3 pg/mL (3.0-54.0)
[2022-01-05 11:16] VITALS: PULSE 73; RESP 13; O2SAT 100
[2022-01-05 11:49] LABS: Troponin-I HS 4 pg/mL (3.0-54.0)
[2022-01-05 12:05] VITALS: BP 148/82; PULSE 84; RESP 16; O2SAT 100
== END 2022-01-05 12:06 | disposition home or self-care (01) ==
PROVIDERS: Emergency Provider Student in an Organized Health Care Education/Training Program; PCP Family Medicine; Visit Provider Student in an Organized Health Care Education/Training Program
DX: R07.9 Chest pain, unspecified (principal)
CPT/HCPCS: 71045; 71275; 80048; 84484; 85025; 93005; 99284; Q9967; A4216

== ENCOUNTER 2022-01-10 11:26 | Outpatient (CLI) | payer OTHER, SELFPAY ==
--- NOTE | 2022-01-10 11:31 | US_ITS ---
STUDY: ULTRASOUND OF THE FEMALE PELVIS - COMPLETE REASON FOR EXAM: Female, 41 years old. LLQ PAIN, LMP: The patient is status post hysterectomy. TECHNIQUE: Transabdominal TECHNICAL QUALITY: Adequate. COMPARISON: None. FINDINGS: The patient is status post hysterectomy. The right ovary is visualized. The right ovary measures 2.9 cm x 2.4 cm x 1.4 cm. There is no right ovarian cyst or ovarian mass. There is no visualized right adnexal mass or complex lesion. There is normal arterial and normal venous vascularity. The left ovary is visualized. The left ovary measures 7.1 cm x 6.6 x 5.1 cm. There is a 4.5 cm x 4.7 cm x 4.7 cm cyst with low-level echoes within it. Follow-up is recommended. There is normal arterial and normal venous vascularity. There is no fluid in the cul-de-sac. The pre void volume of the bladder was 756 ml. US/Pelvic (Non ) IMPRESSION: 4.5 cm x 4.7 cm x 4.7 cm cyst in the left ovary with low level echoes within it. Follow-up is recommended. Electronically Signed: Ry Lee MD at 15:30 EST ,
== END 2022-01-10 23:59 | disposition home or self-care (01) ==
LOC: US 11:27
PROVIDERS: PCP Family Medicine; Referring Provider Family Medicine; Visit Provider Family Medicine
DX: R10.32 Left lower quadrant pain (principal)
CPT/HCPCS: 76856; 93976

== ENCOUNTER 2022-02-09 08:02 | Outpatient (CLI) | payer OTHER, SELFPAY ==
--- NOTE | 2022-02-09 08:06 | US_ITS ---
INDICATION: L OV CYST EXAMINATION: Ultrasound US Pelvis Non-OB Complete TECHNIQUE: Transabdominal and transvaginal pelvic ultrasound was performed. Grayscale, spectral waveform, and color flow Doppler evaluation of the adnexa. COMPARISON: Ultrasound from 01/10/2022 FINDINGS: UTERUS: Status post hysterectomy. RIGHT OVARY: 3.3 x 3.0 x 1.8 cm. Non-enlarged, normal echogenicity. There is normal arterial inflow and venous outflow present in the right ovary. No right adnexal mass. LEFT OVARY: 3.5 x 3.2 x 2.1 cm.. The previously seen left ovarian cyst is no longer identified and has likely resolved. Non-enlarged, normal echogenicity. There is normal arterial inflow and venous outflow present in the left ovary. No left adnexal mass. BLADDER: Unremarkable. FREE FLUID: None. US/Pelvic (Non ) IMPRESSION: Left ovarian cyst seen on 01/10/2022 is no longer identified. Findings likely relate to resolved left hemorrhagic cyst. Electronically Signed: Ponce Blanc, at 12:12 EDT ,
== END 2022-02-09 23:59 | disposition home or self-care (01) ==
PROVIDERS: PCP Family Medicine; Referring Provider Family Medicine; Visit Provider Family Medicine
DX: R10.32 Left lower quadrant pain (principal)
CPT/HCPCS: 76856

== ENCOUNTER 2022-02-15 08:00 | Outpatient (RCR) | payer OTHER, SELFPAY ==
--- NOTE | 2022-01-26 10:15 | HP.OTEVAL ---
Patient's Visit Information ELLE GOODE is a 41 year old F, referred to Occupational Therapy by Dr. Sánchez Lopez MD, with a diagnosis of M79.89, 729.81. Date of Evaluation: 01/26/22 Occupational Therapist: Daniella Azar, OTR/[place], CHT - Subjective This 41 year old female was seen for OT eval with dx of lymphedema- pt states in she developed swelling in her leg and went to ER- DVT was ruled out and went to the drChi and thy referred her to Ortho- and MRI was taken- pt states she continued to have testing. D- dimer was elevated-but was not concerned. pt states she went back to her primary and was referred to wound center and was called to speak to the them and said they could not dx with testing in their center and was referred to this clinic. pt works at [employer] - sits and stand throughout the day-. pt states she had a partial hysterectomy 2014. pt states she had pain in left groin region - and had another ultrasound stated found some cyst on her overy. pt states she does not notice in am her limb is any smaller appears to not make a difference with position. - Lymphedema (Circumferential Measure) Mid-foot: right 20cm left 20cm Ankle: right 24cm left 24cm Lower calf: right 22.5cm left 23cm Largest calf: right 38cm left 39cm Below knee: right 34cm left 34cm Above knee: right 46cm left 45cm Mid-thigh: right 57cm left 56cm Groin: right 63cm left 64cm Lower Exremity Comments: hips 120. across buttock 115 cm. above pelvic bone 106cm. waist 83cm - Sensation Sensation Comments: deneis - Lower Limb Functional Index Lower Extremity Functional Score: 69 - Goals Demonstrate a 20% reduction in edema by d/c: Yes Demonstrate adequate knowledge of self-massage by 2nd week: Yes Demonstrate adequate knowledge skin care/prec by 2nd week: Yes Demonstrate adequate knowledge therapeutic exercises by d/c: Yes Select approp compression garment w/donning/care/wear by d/c: Yes Voice need to replace compression garment every 4-6mo by dc: Yes Goal: Patient will demonstrate ROM WFL by discharge.: Yes - Rehabilitation General Assessment: pt has noticed increase left limb size since Oct, pt has concerns with the swelling and this is unchanged with elevation. Pt would like to know what she can do to mtg the swelling. Pt would benefit from skilled OT services 3 visits to ensure understanding of a HEP for lymphedema mtg,. lymph stim exercise, skin care and use of compression garments. Pt demo understanding and agree to POC. Rehabilitation Potential: Good - Anticipated Interventions Education re Diagnosis, Manual Lymph Drainage, Education re Life-long lymphedema Management, Education re Skin Care and Precautions, Education re Self Massage Techniques, Education re Correct Donning Tech,Care&Wearing Sched Comp Garments, Home Program - Visit Plan TEXT: Thank you for the opportunity to evaluate your patient. For Medicare and Medicare HMO plans, please review the plan of care and approve it. It will need to be FAXED BACK to us at [phone] for Medicare purposes. Please let me know if there are questions or concerns regarding this plan of care. Physician Signature: Date:
--- NOTE | 2022-08-09 13:28 | HP.OTDCSUM ---
It has been my pleasure to treat ELLE GOODE under orders from Dr. Sánchez Lopez MD, for the diagnosis of M79.89, 432.81 for a total of 2 visit(s). Please see the following information for a summary of their discharge status. Objective/Function: Mid-foot: right 20cm left 20cm. Ankle: right 24cm left 24cm. Lower calf: right 22.5cm left 23cm. Largest calf: right 38cm left 39cm. Below knee: right 34cm left 34cm. Above knee: right 46cm left 45cm. Mid-thigh: right 57cm left 56cm. Groin: right 63cm left 64cm. Lower Extremity Comments: hips 120. across buttock 115 cm. above pelvic bone 106cm. waist 83. no change in measurements from initial eval. re'c pt return to venous specialist for pain in back of her knee Patient Goals: Learn how to Manage Lymphedema, Learn how to Apply Compression Stockings Demonstrate a 20% reduction in edema by d/c: Yes Demonstrate adequate knowledge of self-massage by 2nd week: Yes Demonstrate adequate knowledge skin care/prec by 2nd week: Yes Demonstrate adequate knowledge therapeutic exercises by d/c: Yes Select approp compression garment w/donning/care/wear by d/c: Yes Voice need to replace compression garment every 4-6mo by dc: Yes Goal: Patient will demonstrate ROM WFL by discharge.: Yes Plan: D/C Discharge Comments: pt was seen for 2 visits- rec'd pt continue wearing her compression- advised with her to wear supportive compression garments with walking - pt agree- therapy advised pt to initiate light LE stretching. pt demo good understanding of her HEP. pt agree with d/c If there are questions or concerns regarding this patient's occupational therapy, please fell free to call me at [phone]. Thank you for the referral of this patient. Sincerely, Daniella Azar, OTR/L, CHT
== END 2022-02-15 19:00 | disposition home or self-care (01) ==
LOC: OT 08:00
PROVIDERS: PCP Family Medicine; Referring Provider Family Medicine; Visit Provider Family Medicine
DX: M79.89 Other specified soft tissue disorders (principal)
CPT/HCPCS: 97166; 97530

== ENCOUNTER → 2022-08-23 | Outpatient (CLI) | payer OTHER, SELFPAY ==
[2022-08-23 12:38] LABS: Anion Gap 8 (5-15); BUN 14 mg/dL (7-18); BUN/Creat Ratio 14.3 RATIO (10-20); Calcium,Total 9.4 mg/dL (8.5-10.1); Chloride 105 mmol/L (98-107); Creatinine, Serum 0.98 mg/dL (0.55-1.02); EST Glomerular Filtration Rate 67 mL/min (>60); Est Glom Filt Rate - Afr Amer 81 mL/min (>60); Glucose 93 mg/dL (74-106); Potassium 3.8 mmol/L (3.5-5.1); Sodium Level 138 mmol/L (136-145); Thyroid Stim Hormone (TSH) 1.79 uIU/mL (0.358-3.74)
== END | disposition home or self-care (01) ==
LOC: MTLAB 10:19
PROVIDERS: PCP Family Medicine; Referring Provider Family Medicine; Visit Provider Family Medicine
DX: E87.6 Hypokalemia (principal); F41.8 Other specified anxiety disorders
CPT/HCPCS: 36415; 80048; 84443

== ENCOUNTER → 2022-09-27 | Outpatient (CLI) | payer OTHER, SELFPAY ==
--- NOTE | 2022-09-27 13:02 | ECHOD_ITS ---
Version 2 Reason For Study: PALPITATIONS Procedure This was a 2D Doppler, Color Flow transthoracic echocardiogram. Exam performed in department. Left Ventricle Normal LV size. Left ventricular systolic function is normal. The estimated ejection fraction is 60 %. No regional wall motion abnormalities noted. Right Ventricle Normal RV size. Normal systolic function. Atria Normal left atrium. Normal right atrium. Mitral Valve Normal mitral valve. Tricuspid Valve Normal tricuspid valve. Aortic Valve Trisinus/trileaflet aortic valve. Pulmonic Valve Normal pulmonic valve. Great Vessels Normal aortic root. The pulmonary artery is normal size. Normal inferior vena cava. Pericardium/Pleural No pericardial effusion. MMode/2D Measurements & Calculations LVIDd: 3.9 cm IVSd: 1.0 cm Ao root diam: 3.1 cm LVIDs: 2.3 cm LVPWd: 1.1 cm FS: 41.6 % LAV(MOD-bp): 38.4 ml LVAd ap4: 22.8 cm2 SV(MOD-sp4): 36.3 ml LAV(MOD-bp) Indexed: 20.7 ml/m2 LVLd ap4: 7.5 cm LAV(MOD-sp2): 43.8 ml EDV(MOD-sp4): 57.9 ml LAV(MOD-sp4): 33.7 ml EDV(sp4-el): 58.8 ml LVAs ap4: 12.4 cm2 LVLs ap4: 6.4 cm ESV(MOD-sp4): 21.5 ml ESV(sp4-el): 20.3 ml EF(MOD-sp4): 62.8 % EF(sp4-el): 65.5 % SV(sp4-el): 38.5 ml LA A4 area: 15.0 cm2 LA dimension(2D): 3.4 cm RA A4 area: 15.0 cm2 Time Measurements MV dec time: 0.14 sec Doppler Measurements & Calculations MV E max charles: 73.4 cm/sec Lat Peak E' Charles: 12.8 cm/sec Med Peak E' Charles: 8.2 cm/sec MV A max charles: 74.7 cm/sec E/E' lat: 5.7 E/E' med: 8.9 MV E/A: 0.98 MV V2 max: 70.3 cm/sec Ao V2 max: 149.8 cm/sec MV max P.0 mmHg MV dec slope: 532.9 cm/sec2 Ao max P.0 mmHg MV V2 mean: 48.1 cm/sec Ao V2 mean: 101.1 cm/sec MV mean P.0 mmHg Ao mean P.7 mmHg MV V2 VTI: 16.8 cm Ao V2 VTI: 26.0 cm LV V1 max: 138.6 cm/sec PA V2 max: 82.8 cm/sec LV V1 max P.7 mmHg PA V2 mean: 57.5 cm/sec LV V1 mean P.9 mmHg LV V1 mean: 93.5 cm/sec LV V1 VTI: 23.4 cm ECHO/Echo Complete Interpretation Summary Normal LV size. Left ventricular systolic function is normal. The estimated ejection fraction is 60 %. The global longitudinal strain is normal. The global longitudinal strain = -22. 8 % (normal). Structurally normal valves. Ordering Physician: Abdoulaye Magana Referring Physician: Abdoulaye Magana Performed By: Elizabeth Michele RCS
--- NOTE | 2022-09-27 17:56 | STRESSREP ---
Stress Test Report Exercise stress test. 42-year-old lady with a history of chest pain. Stress protocol: Resting EKG demonstrates normal sinus rhythm with a rate of 90 bpm normal intervals are noted resting blood pressure is 128/84 mmHg. The patient exercised according to regular David protocol for total duration of 8 minutes. Patient completed 2 minutes into stage III of the David protocol the maximum heart rate attained was 181 bpm which was 100% of max impacted heart rate the maximum workload was 10.4 metabolic equivalents. At rest there were no ST or T wave changes noted to suggest ischemia and at peak exercise there was upsloping ST depression noted in the inferolateral leads with did not meet the criteria for ischemia. No clinical angina was noted the patient did have minimal epigastric discomfort however noted. The peak blood pressure was 178/88 mmHg and no arrhythmias were noted rate-pressure part was 32,218. Conclusion: Exercise stress test with no EKG criteria for ischemia at a high workload. Good functional capacity.
== END | disposition home or self-care (01) ==
LOC: CVS 13:01
PROVIDERS: PCP Family Medicine; Referring Provider Internal Medicine Cardiovascular Disease; Visit Provider Internal Medicine Cardiovascular Disease
DX: R00.2 Palpitations (principal); R42 Dizziness and giddiness; R07.9 Chest pain, unspecified; R00.0 Tachycardia, unspecified; R94.31 Abnormal electrocardiogram [ECG] [EKG]; I10 Essential (primary) hypertension; Z82.49 Family history of ischemic heart disease and other diseases of the circulatory system
CPT/HCPCS: 93017; 93306

== ENCOUNTER → 2022-09-29 | Outpatient (CLI) | payer OTHER, SELFPAY ==
--- NOTE | 2022-09-29 18:11 | US_ITS ---
EXAM: US PELVIS TRANSABDOMINAL, COMPLETE CLINICAL INDICATION: LLQ PAIN TECHNIQUE: Transabdominal pelvic ultrasound was performed with grayscale and color Doppler imaging. This report was created using Acusp[employer] report generation technology. COMPARISON: 02/09/2022. FINDINGS: UTERUS/CERVIX: Uterus is surgically absent. RIGHT OVARY: Right ovary measures 2.9 x 1.6 x 2.5 cm. Venous flow was documented. 2 x 1.1 cm dominant follicle. No evidence of mass. LEFT OVARY: Left ovary measures 4.8 x 2.9 x 3.7 cm. Arterial and venous flow are documented. There is a 2.8 x 2.8 x 3 cm heterogeneous hypoechoic lesion in the left ovary, without color flow. FREE FLUID: None. BLADDER: Bladder is unremarkable. US/Pelvic (Non ) IMPRESSION: Hypoechoic, avascular left ovarian lesion, possible hemorrhagic cyst. 6-12 weeks sonographic follow-up is recommended. Electronically Signed: Rosa Samayoa MD at 20:25 EDT Reading Location ID and State: [id number] / Tel , Service support ,
== END | disposition home or self-care (01) ==
LOC: US 18:09
PROVIDERS: PCP Family Medicine; Visit Provider Obstetrics & Gynecology
DX: R10.32 Left lower quadrant pain (principal)
CPT/HCPCS: 76856; 93976

== ENCOUNTER → 2022-11-11 | Outpatient (CLI) | payer OTHER, SELFPAY ==
--- NOTE | 2022-11-11 07:17 | US_ITS ---
STUDY: ULTRASOUND OF THE FEMALE PELVIS - COMPLETE REASON FOR EXAM: Female, 42 years old. Ovarian cy LMP: Prior hysterectomy. TECHNIQUE: Transabdominal and Transvaginal TECHNICAL QUALITY: Adequate. COMPARISON: Comparison is made with prior study dated 09/29/2022. FINDINGS: The patient is status post hysterectomy. The right ovary is visualized. The right ovary measures 3.6 cm x 2.7 cm x 2 cm. Follicles are seen within the right ovary. It presently measures less than 2 cm. There is no visualized right adnexal mass or complex lesion. There is normal arterial and normal venous vascularity. The left ovary is visualized. The left ovary measures 3 cm x 2.6 x 2.1 cm. Small follicles are seen within the left ovary. There is no visualized left adnexal mass or complex lesion. There is normal arterial and normal venous vascularity. There is no fluid in the cul-de-sac. The pre void volume of the bladder was 238 ml. US/Pelvic (Non ) IMPRESSION: Small follicles are seen in both ovaries. Electronically Signed: Ry Lee MD at 12:20 EST ,
== END | disposition home or self-care (01) ==
PROVIDERS: PCP Family Medicine; Visit Provider Obstetrics & Gynecology
DX: N83.202 Unspecified ovarian cyst, left side (principal)
CPT/HCPCS: 76856

== ENCOUNTER → 2022-11-29 | Outpatient (CLI) | payer OTHER, SELFPAY ==
--- NOTE | 2022-11-29 12:38 | RAD_ITS ---
STUDY: X-RAY - ABDOMEN/PELVIS REASON FOR EXAM: Female, 42 years old. Flank pain. Abdominal tenderness. TECHNIQUE: Single AP view of the abdomen / pelvis on 2 images. COMPARISON: None. FINDINGS: Normal visualized lung bases. Normal bowel gas pattern with air seen to the rectosigmoid. There is no demonstrated free abdominal air. The visualized liver, spleen and kidneys are grossly normal in size and morphology. Normal soft tissue structures. Normal visualized osseous structures. RAD/Abdomen Single View IMPRESSION: No acute abnormality of the lower chest, abdomen or pelvis. Electronically Signed: Luis Angel Robles, at 14:48 EST ,
[2022-11-29 14:50] LABS: Color, Urine Yellow (Yellow); Glucose, Dipstick Normal (Normal); Ketone-Dipstick Negative (Negative); Leukocyte Esterase-Dipstick Negative /ul (Negative); Nitrite-Dipstick Negative (Negative); Occult Blood-Urine Negative /ul (Negative); Protein-Dipstick Negative (Negative); Urine Bilirubin Dipstick Negative (Negative); Urine Clarity Clear (Clear); Urine Urobilinogen Normal (Normal)
[2022-11-29 14:52] LABS: Absolute Lymphocyte Count 1.64 X10^3/uL (0.83-4.51); Absolute Neutrophil Count 10.2 X10^3/uL (2.0-7.7); Basophil# 0.03 X10^3/uL; Basophil% 0.2 % (0-1); Eosinophil# 0.04 X10^3/uL; Eosinophils% 0.3 % (0-5); Hematocrit 49.2 % (37-47); Hemoglobin 16.2 g/dL (12.0-15.0); Lymphocyte # 1.64 X10^3/ul (0.83-4.51); Lymphocyte % 13.3 % (19-41); Mean Corp Hgb Conc 32.9 g/dL (32-36); Mean Corpuscular Hgb 29.9 pg (27.0-32.0); Mean Corpuscular Volume 90.8 fL (81-99); Mean Platelet Vol. 10.2 fl (6.2-12.0); Monocyte# 0.35 X10^3/uL; Monocyte% 2.8 % (0-10); NRBC Flagged by Analyzer 0 % (0-5); Neutrophil # 10.23 X10^3/uL (2.7-7.7); Neutrophil % 83.2 % (47-70); Platelet Count 225 K/mm3 (150-450); RBC Distribution Width CV 11.9 % (11.6-14.6); RBC Distribution Width SD 39.8 fl (35.1-43.9); Red Blood Count 5.42 M/mm3 (4.2-5.4); White Blood Count 12.3 K/mm3 (4.4-11.0)
[2022-11-29 15:16] LABS: ALB/GLOB Ratio 1.3 RATIO (0.9-2.4); AST(SGOT) 13 U/L (15-37); Alanine Aminotransfer ALT/SGPT 30 U/L (13-56); Albumin, Serum 4.4 g/dL (3.2-5.0); Alkaline Phosphatase 73 U/L (45-117); Anion Gap 7 (5-15); BUN 12 mg/dL (7-18); BUN/Creat Ratio 14.1 RATIO (10-20); Chloride 105 mmol/L (98-107); Creatinine, Serum 0.85 mg/dL (0.55-1.02); EST Glomerular Filtration Rate 79 mL/min (>60); Est Glom Filt Rate - Afr Amer 95 mL/min (>60); Globulin 3.5 g/dL (2.2-4.2); Glucose 86 mg/dL (74-106); Protein, Total 7.9 g/dL (6.4-8.2); Sodium Level 138 mmol/L (136-145); T4 Free Direct 1.07 ng/dL (0.76-1.46); Thyroid Stim Hormone (TSH) 2.06 uIU/mL (0.358-3.74)
== END | disposition home or self-care (01) ==
LOC: MTLAB 12:36
PROVIDERS: PCP Family Medicine; Referring Provider Family Medicine; Visit Provider Family Medicine
DX: R10.9 Unspecified abdominal pain (principal); R53.83 Other fatigue
CPT/HCPCS: 36415; 74018; 80053; 81002; 84439; 84443; 85025

== ENCOUNTER → 2022-12-15 | Outpatient (CLI) | payer OTHER, SELFPAY ==
--- NOTE | 2022-12-15 14:47 | CT_ITS ---
STUDY: CT Abdomen And Pelvis W/ Contrast Injection 12/15/2022 5:45 PM REASON FOR EXAM: Female, 42 years old. LT FLANK PAIN X 1 MON INTERMITTENT, MID ABD TENDERNESS, [id number] HAS OVARIES PAIN L FLANK PAIN TECHNIQUE: Transaxial images were obtained with oral contrast, and with IV 100mL [id number] intravenous contrast. Individualized dose optimization techniques were used for this CT. COMPARISON: None. FINDINGS: The visualized lung bases are unremarkable. The visualized portions of the heart are within normal limits. Unremarkable liver. Unremarkable gallbladder and extrahepatic biliary system. Unremarkable spleen. Unremarkable pancreas. Unremarkable bilateral adrenal glands. No acute findings of the right kidney. No acute findings of the left kidney. Unremarkable visualized stomach. Unremarkable small intestine. There are multiple colonic diverticula consistent with diverticulosis. The appendix is visualized and appears unremarkable. There are calcifications of the abdominal aorta. This is consistent for atherosclerotic disease. There is no abdominal aortic aneurysm. Unremarkable inferior vena cava. Subcentimeter mesenteric lymph nodes. Unremarkable urinary bladder. There is absence of the uterus consistent with a prior hysterectomy. Unremarkable abdominal wall. Unremarkable osseous structures. CT/Abdomen/Pelvis WITH Contrast IMPRESSION: (NOT LISTED IN ORDER OF SIGNIFICANCE) There are multiple colonic diverticula consistent with diverticulosis. Other findings as above. Electronically Signed: Arnulfo Cook MD at 17:48 [facility] ,
== END | disposition home or self-care (01) ==
LOC: CT 14:46
PROVIDERS: PCP Family Medicine; Referring Provider Family Medicine; Visit Provider Family Medicine
DX: K57.30 Diverticulosis of large intestine without perforation or abscess without bleeding (principal); I70.0 Atherosclerosis of aorta; R10.819 Abdominal tenderness, unspecified site; D72.829 Elevated white blood cell count, unspecified
CPT/HCPCS: 74177; Q9967

== ENCOUNTER → 2022-12-22 | Outpatient (CLI) | payer OTHER, SELFPAY ==
[2022-12-22 08:12] LABS: Erythrocyte Sedimentation Rate 9 mm/hr (0-30)
[2022-12-22 08:13] LABS: Absolute Lymphocyte Count 2.15 X10^3/uL (0.83-4.51); Absolute Neutrophil Count 4.9 X10^3/uL (2.0-7.7); Basophil# 0.02 X10^3/uL; Basophil% 0.3 % (0-1); Eosinophil# 0.09 X10^3/uL; Eosinophils% 1.2 % (0-5); Hematocrit 47.8 % (37-47); Hemoglobin 15.7 g/dL (12.0-15.0); Lymphocyte # 2.15 X10^3/ul (0.83-4.51); Lymphocyte % 28.6 % (19-41); Mean Corp Hgb Conc 32.8 g/dL (32-36); Mean Corpuscular Hgb 30.1 pg (27.0-32.0); Mean Corpuscular Volume 91.7 fL (81-99); Mean Platelet Vol. 11.2 fl (6.2-12.0); Monocyte# 0.39 X10^3/uL; Monocyte% 5.2 % (0-10); NRBC Flagged by Analyzer 0 % (0-5); Neutrophil # 4.86 X10^3/uL (2.7-7.7); Neutrophil % 64.4 % (47-70); Platelet Count 231 K/mm3 (150-450); RBC Distribution Width CV 12.1 % (11.6-14.6); RBC Distribution Width SD 40.6 fl (35.1-43.9); Red Blood Count 5.21 M/mm3 (4.2-5.4); White Blood Count 7.5 K/mm3 (4.4-11.0)
[2022-12-22 08:41] LABS: CRP < 2.90 mg/L (0.0-3.0); Cholesterol 183 mg/dL (200); High Density Lipoprotein 58 mg/dL; LDH 164 U/L (84-246); Triglycerides 123 mg/dL; Very Low Density Lipoprotein 25 mg/dL (5-40)
[2022-12-23 18:27] LABS: ANTINUCLEAR ANTIBODIES DIRECT Negative (Negative)
== END | disposition home or self-care (01) ==
LOC: LAB 07:15
PROVIDERS: PCP Family Medicine; Referring Provider Family Medicine; Visit Provider Family Medicine
DX: D72.829 Elevated white blood cell count, unspecified (principal); I70.0 Atherosclerosis of aorta; K13.70 Unspecified lesions of oral mucosa
CPT/HCPCS: 36415; 80061; 83615; 85025; 85652; 86038; 86140; 86225; 86235

== ENCOUNTER → 2022-12-27 | Outpatient (CLI) | payer OTHER, SELFPAY ==
--- NOTE | 2022-12-27 07:25 | BI_ITS ---
MAMMOGRAPHY - BILATERAL SCREENING REASON FOR EXAM: Female, 42 years old. Routine annual screening examination. PERTINENT HISTORY: Aunt with breast cancer. TECHNIQUE: Digital bilateral breast ernestina (3D mammographic acquisition) in the CC and MLO projections. 2-D mediolateral oblique (MLO) and craniocaudad (CC) views of both breasts were obtained. CAD: Full Field Digital Mammography with Computer Added Detection was performed. COMPARISON: Comparison is made with prior examination of 08/17/2021 and 11/11/2020. FINDINGS: Breast Composition: The breasts are extremely dense, which lowers the sensitivity of mammography. There are no dominant masses or suspicious calcifications. No other significant abnormalities are identified. There has been no significant change since the prior study. BI/SCRN MAMM (CAD)W/ERNESTINA BILAT IMPRESSION: Stable bilateral screening mammogram. Yearly follow-up mammogram recommended. (A) ASSESSMENT CATEGORY: BIRADS Category 1: Negative. A letter regarding these results will be sent to the patient by the facility within 30 days. Approximately 10% of breast cancers are not detected by mammography. A normal mammogram should not delay biopsy of a clinically suspicious abnormality. [id number] Electronically Signed: Ry Lee MD at 8:52 EST ,
== END | disposition home or self-care (01) ==
LOC: OPBI 07:24
PROVIDERS: PCP Family Medicine; Referring Provider Obstetrics & Gynecology; Visit Provider Obstetrics & Gynecology
DX: Z12.31 Encounter for screening mammogram for malignant neoplasm of breast (principal); Z80.3 Family history of malignant neoplasm of breast
CPT/HCPCS: 77063; 77067

== ENCOUNTER → 2023-05-31 | Outpatient (CLI) | payer OTHER, SELFPAY | END | disposition home or self-care (01) | LOC: LABSPEC 10:20 | PROVIDERS: PCP Family Medicine; Referring Provider Nurse Practitioner Women's Health; Visit Provider Nurse Practitioner Women's Health | DX: N94.9 Unspecified condition associated with female genital organs and menstrual cycle (principal) | CPT/HCPCS: 87070; 87205 ==

== ENCOUNTER → 2023-06-27 | Outpatient (CLI) | payer OTHER, SELFPAY ==
--- NOTE | 2023-06-27 12:20 | RAD_ITS ---
STUDY: X-RAY - ABDOMEN/PELVIS REASON FOR EXAM: Female, 42 years old. constipation TECHNIQUE: Single AP view of the abdomen / pelvis. COMPARISON: None. FINDINGS: Normal visualized lung bases. There is an unremarkable bowel gas pattern. There is no demonstrated free abdominal air. The visualized liver, spleen and kidneys are grossly normal in size and morphology. Normal soft tissue structures. Normal visualized osseous structures. RAD/Abdomen Single View IMPRESSION: Normal x-ray examination of the abdomen and pelvis. Electronically Signed: Gideon Hylton MD at 18:36 EDT ,
--- NOTE | 2023-06-27 12:26 | NM_ITS ---
CLINICAL: 42-year-old female with history of epigastric pain. SEMI-SOLID PHASE 99m Tc SULFUR COLLOID GASTRIC EMPTYING STUDY COMPARISON: None available FINDINGS: The patient was administered 1.2 mCi of 99m Tc sulfur colloid mixed with oatmeal and consumed per os. Image acquisitions in the anterior-posterior projections were obtained for 60 minutes. There is prompt visualization of the stomach. There is no gastroesophageal reflux identified. First order kinetics are maintained throughout the duration of the acquisitions. The T ? raw data emptying was calculated to be 57.93 minutes, (Normal: 12-56 minutes). NM/Gastric Emptying Study IMPRESSION: 1. ABNORMAL 99m Tc sulfur colloid semi-solid phase (oatmeal) gastric emptying imaging examination. A. There is mildly delayed semi-solid phase gastric emptying compared to normal controls with maintained first order kinetics throughout all components of the examination. (Anthony et al, J Nucl Med Tech 38: 186, 2010). Electronically Signed: Huey Redd, at 22:23 EDT ,
== END | disposition home or self-care (01) ==
LOC: NM 12:08
PROVIDERS: PCP Family Medicine; Referring Provider Internal Medicine Gastroenterology; Visit Provider Internal Medicine Gastroenterology
DX: K59.09 Other constipation (principal)
CPT/HCPCS: 74018; 78264; A9541

== ENCOUNTER → 2023-12-11 | Outpatient (CLI) | payer BC, SELFPAY ==
--- OUTSIDE RECORDS SUMMARY | 2023-12-11 11:04 | XMS RPT_ITS | CCD ---
Author Name Unknown Address [address] [place] [address] Organization [facility] Care Team Providers Care Recorder [employer] Name Role Phone John LUCIANO, Sánchez Saravia Primary Care Provider 1( [phone] Allergies Allergy Classification Reported Allergen(s) Allergy Type Date of Onset Reaction(s) Facility (2 sources) levoFLOXacin Drug Allergy 03-11-2021 Rash [facility] Medications Current Medications Medication Drug Class(es) Dates Sig (Normalized) Sig (Original) loratadine 10 mg oral tablet (2 sources) Start: 12-22-2020 End: 06-14-2022 take 1 tablet by mouth once daily loratadine (CLARITIN) 10 mg tablet Take 10 mg by mouth once daily. 0 12/22/2020 06/14/2022 Discontinued Completed/Discontinued Medications Medication Drug Class(es) Dates Sig (Normalized) Sig (Original) baclofen 10 mg oral tablet (3 sources) gamma-Aminobutyri c Acid-ergic Agonist Start: 03-11-2021 take 1 tablet by mouth every eight hours as needed baclofen (LIORESAL) 10 mg tablet Take 10 mg by mouth every 8 hours as needed. 0 03/11/2021 Active Problems Problem Classification Problem Date Documented Da te Episodic/Chronic Other upper respiratory infections (1 source) Sore throat symptom; Translations: [Acute pharyngitis, unspecified] Episodic Varicose veins of lower extremity (2 sources) Venous varices; Translations: [Varicose veins of left lower extremity with other complications] Episodic Results Test Name Value Interpretation Reference Range Facil ity Vital Signs Date Time Vital Sign Value Performing Clinician Faci lity 06-28-2022 10:39-0400 Body weight 83.92 kg Renetta Mcfarland DO Work Phone: [facility] 06-28-2022 10:39-0400 Diastolic blood pressure 85 mm[Hg] Renetta Mcfarland DO Work Phone: [facility] 06-28-2022 10:39-0400 Heart rate 75 /min Renetta Mcfarland DO Work Phone: [facility] 06-28-2022 10:39-0400 SaO2% (BldA) [Mass fraction] 100 % Renetta Mcfarland DO Work Phone: [facility] 06-28-2022 10:39-0400 Systolic blood pressure 138 mm[Hg] Renetta Mcfarland DO Work Phone: [facility] 06-14-2022 08:08-0400 Body height 165.1 cm Renetta Mcfarland DO Work Phone: [facility] 06-14-2022 08:08-0400 Body weight 82.56 kg Renetta Mcfarland DO Work Phone: [facility] 06-14-2022 08:08-0400 Diastolic blood pressure 87 mm[Hg] Renetta Mcfarland DO Work Phone: [facility] 06-14-2022 08:08-0400 Heart rate 80 /min Renetta Mcfarland DO Work Phone: [facility] 06-14-2022 08:08-0400 SaO2% (BldA) [Mass fraction] 99 % Renetta Mcfarland DO Work Phone: [facility] 06-14-2022 08:08-0400 Systolic blood pressure 126 mm[Hg] Renetta Coppolale DO Work Phone: [facility] 04-18-2022 07:17-0400 Body temperature 98.6 [degF] Geovany Dutta MD Work Phone: [facility] 04-18-2022 07:17-0400 Body weight 83.46 kg Geovany Dutta MD Work Phone: [facility] 04-18-2022 07:17-0400 Diastolic blood pressure 80 mm[Hg] Geovany Dutta MD Work Phone: [facility] 04-18-2022 07:17-0400 Heart rate 94 /min Geovany Dutta MD Work Phone: [facility] 04-18-2022 07:17-0400 Respiratory rate 16 /min Geovany Dutta MD Work Phone: [facility] 04-18-2022 07:17-0400 SaO2% (BldA) [Mass fraction] 99 % Geovany Dutta MD Work Phone: [facility] 04-18-2022 07:170400 Systolic blood pressure 124 mm[Hg] Geovany Dutta MD Work Phone: [facility] Encounters Encounter Date Encounter Type Care Provider Facility Start: 06-28-2022 End: 06-28-2022 Patient encounter procedure Renetta Mcfarland DO Work Phone: Vascular Surgery Procedures Date Procedure Procedure Detail Performing Clinician Start: 04-18-2022 STREP A MOLECULAR (POC) Geovany Dutta MD Work Phone: Plan of Treatment Date Care Activity Detail Author Start: 07-28-2022 Influenza vaccination INFLUENZA (#1) [facility] Start: 04-18-2022 End: 05-02-2022 SARS-CoV-2 (COVID-19) RNA [Presence] in Respiratory specimen by VANNESSA with probe detection 2019 CORONAVIRUS Microbiology Routine Sore throat Expected: 04/18/2022, Expires: 05/02/2022 [facility] Work Phone: Payers Date Payer Category Payer Private Health Insurance [facility] [employer] [id number] 2020-Present [phone] [address] [place] [address] HMO [id number] Social History Date Type Detail Facility Start: 09-23-2015 Tobacco smoking stat us MOIS Never smoked tobacco [facility] Start: 09-23-2015 Tobacco use and exposure Smokeless tobacco non-user [facility] Start: 04-18-2022 End: 06-28-2022 Alcohol intake Current non-drinker of alcohol (finding) [facility] Start: 1980 Sex Assigned At Not on file [facility] Start: 04-08-2022 End: 06-28-2022 Exposure to SARS-CoV-2 (event) Not sure [facility] Work Phone: Clinical Notes 11-10-2021 to 06-28-2022 Renetta Mcfarland DO - 06/28/2022 10:44 AM Jenny Mcfarland DO - 06/28/2022 12:00 AM Jenny Mcfarland DO - 06/14/2022 8:09 AM Pelon Dutta MD - 04/18/2022 7:22 AM EDT Note Date & Type Note Facility 06-28-2022 Note HNO ID: [id number] Author: Renetta Mcfarland DO Service: Vascular Surgery Author Type: Physician Type: Progress Notes Filed: 06/29/2022 3:41 PM Note Text: NAME: [facility] NO: [id number] DATE OF SERVICE: 06/28/2022 Subjective: Jody is here to follow up on left lower extremity fatigue and symptomatic varicose veins, venous reflux testing. She denies any new complaints. Overall, she is doing well and at baseline. She does wear compression. Denies any significant improvement in symptoms. States the symptoms have slowly been progressing and she has noticed them more recently. Objective: Her vital signs are stable. She is in no distress. She has left lower extremity varicose veins, some prominent subcutaneous tissue at the proximal upper thigh on the left. Reviewed her venous reflux. She has significant reflux of her GSV and AGSV. Assessment/Plan: Symptomatic varicose veins. Would recommend that Jody would benefit from a left greater saphenous and anterior branch endovenous laser ablation, as symptoms have persisted despite nonintervention therapy and are beginning to impact day-to-day activities. Reviewed the risks, benefits and alternatives and she is agreeable. We will have the office arrange and schedule. Renetta Mcfarland D.O. KB/[id number] Audio #: [id number] Date Dictated: 06/28/2022 09:07:14 Date Typed: 06/29/2022 13:31:10 Date Revised: [facility] 06-28-2022 Note HNO ID: [id number] Author: Renetta Mcfarland DO Service: ? Author Type: Physician Type: Progress Notes Filed: 06/29/2022 2:12 PM Note Text: This office note has been dictated. Renetta Mcfarland DO' [facility] 06-28-2022 History of Present illness Narrative This office note has been dictated. Renetta Mcfarland DO' NAME: [facility] NO: [id number] DATE OF SERVICE: 06/28/2022 Subjective: Jody is here to follow up on left lower extremity fatigue and symptomatic varicose veins, venous reflux testing. She denies any new complaints. Overall, she is doing well and at baseline. She does wear compression. Denies any significant improvement in symptoms. States the symptoms have slowly been progressing and she has noticed them more recently. Objective: Her vital signs are stable. She is in no distress. She has left lower extremity varicose veins, some prominent subcutaneous tissue at the proximal upper thigh on the left. Reviewed her venous reflux. She has significant reflux of her GSV and AGSV. Assessment/Plan: Symptomatic varicose veins. Would recommend that Jody would benefit from a left greater saphenous and anterior branch endovenous laser ablation, as symptoms have persisted despite nonintervention therapy and are beginning to impact day-to-day activities. Reviewed the risks, benefits and alternatives and she is agreeable. We will have the office arrange and schedule. Renetta Mcfarland D.O. KB/[id number] Audio #: [id number] Date Dictated: 06/28/2022 09:07:14 Date Typed: 06/29/2022 13:31:10 Date Revised: documented in this encounter [facility] 06-14-2022 Note HNO ID: [id number] Author: Renetta Mcfarland, DO Service: ? Author Type: Physician Type: Progress Notes Filed: 06/14/2022 9:41 AM Note Text: [facility] [place] DEPARTMENT OF VASCULAR SURGERY OUTPATIENT VISIT DATE June 14, 2022 OUTPATIENT VISIT TYPE CONSULTATION SERVICE DATE: 06/14/2022 SERVICE TIME: 8:09 AM PRIMARY CARE PHYSICIAN: Sánchez Lopez MD REFERRING PROVIDER: SELF Consult requested for an opinion regarding the evaluation and treatment of the above. My final impression and recommendations will be communicated back to the requesting physician by way of the shared medical record or letter via [place] mail. CHIEF COMPLAINT: Patient presents with: New Patient History of Present Illness: Patient is a 41 year old White female presenting for consultation, evaluation and possible treatment of varicose veins and leg edema.left aching and edema. Predisposing factors included not significant. No specific history of injury or prior problems. Relieving factors include elevation of legs and reduced activity with mild improvement in symptoms. Patient denies DVT, phlebitis and treatment with blood thinners. Noticed the swelling in October. Had venous duplex- negative for DVT. Went to see orthopedics and had MRI which she was told was normal. PAIN ASSESSMENT: PAIN EVALUATION No data found in the last 1 encounters. Obstetric History No data available Duration of Symptoms: Greater Than 3 Months PAST MEDICAL HISTORY Diagnosis Date - Migraine headache PAST SURGICAL HISTORY Procedure Laterality Date - ADENOIDECTOMY PRIMARY - HYSTERECTOMY HX 12/28/2014 fibroid, ovaries intact SOCIAL HISTORY: Social History Tobacco Use - Smoking status: Never Smoker - Smokeless tobacco: Never Used Substance Use Topics - Alcohol use: No - Drug use: No No family history on file. MEDICATIONS: Lactobacillus acidophilus (PROBIOTIC ORAL) Take 2 tablets by mouth. 2 gummies 500 mil CFU baclofen (LIORESAL) 10 mg tablet Take 10 mg by mouth every 8 hours as needed. Cholecalciferol, Vitamin D3, 25 mcg (1,000 unit) cap Take 1 capsule by mouth once daily. topiramate (TOPAMAX) 25 mg tablet Take 25 mg by mouth once daily. rizatriptan (MAXALT) 10 mg tablet TAKE 1 TABLET BY MOUTH EVERY 2 HOURS UP TO 3 TABLETS DAILY NEEDED FOR HEADACHE MULTI-VITAMIN ORAL Take by mouth. omeprazole (PRILOSEC) 40 mg capsule Take 40 mg by mouth once daily as needed. loratadine (CLARITIN) 10 mg tablet Take 10 mg by mouth once daily. ALLERGIES: ALLERGIES Allergen Reactions - Levofloxacin Rash REVIEW of SYSTEMS: Constitutional: No weight loss, malaise or fevers. HEENT: No changes in hearing or vision, no nose bleeds or other nasal problems, Head Positive for headache Respiratory: Negative for cough, wheezing, or shortness of breath Cardiovascular: Positive for leg swelling and palpitations Gatrointestinal: Negative for abdominal discomfort, blood in stools or black stools or change in bowel habits Genitourinary: No history of dysuria, frequency, or incontinence Musculoskeletal: Negative for joint pain or swelling, back pain or muscle pain Endocrine: Negative for cold or heat intolerance, polyuria, polydipsia and goiter Hematology/Lymphatic: Negative for prolonged bleeding, bruising easily or swollen nodes Neurologic: No history or headaches, syncope, paralysis, seizures or tremors Integumentary: Negative for lesions, rash, and itching. PHYSICAL EXAM: VITALS: There were no vitals taken for this visit. General: Alert, oriented, cooperative, healthy appearance Integumentary: Normal color, no rash, no lesions. HEENT: EOM, pupils equal, round and reactive. Cardiovascular: Pulse regular. Lungs: No chest deformities or chest wall tenderness. Abdomen: Not examined Extremities: Left leg varicose veins, prominent proximal posterior thigh fat pad; set get images for photo, no discrete mass palpable Neurological: AAOx3. Normal cognition and motor skills. Vascular: Posterior Tibial Right: Normal - Left: Normal Diagnostic tests reviewed for today's visit: Most recent labs Most recent imaging IMPRESSION: Ms. Goode is a 41 year old female with left lower extremity edema, varicose veins . PLAN and RECOMMENDATIONS: Will get venous reflux testing Discussed etiology of edema may be multifactorial and she may lipedema of left proximal thigh Follow up testing to review results and options Continue walking and exercise as tolerated SIGNATURE: Renetta Mcfarland DO PATIENT NAME: Jody Goode DATE: June 14, 2022 TIME: 8:09 AM [facility] 06-14-2022 History of Present illness Narrative Images from the original note were not included. [facility] [place] DEPARTMENT OF VASCULAR SURGERY OUTPATIENT VISIT DATE June 14, 2022 OUTPATIENT VISIT TYPE CONSULTATION SERVICE DATE: 06/14/2022 SERVICE TIME: 8:09 AM PRIMARY CARE PHYSICIAN: Sánchez Lopez MD REFERRING PROVIDER: SELF Consult requested for an opinion regarding the evaluation and treatment of the above. My final impression and recommendations will be communicated back to the requesting physician by way of the shared medical record or letter via [place] mail. CHIEF COMPLAINT: Patient presents with: New Patient History of Present Illness: Patient is a 41 year old White female presenting for consultation, evaluation and possible treatment of varicose veins and leg edema.left aching and edema. Predisposing factors included not significant. No specific history of injury or prior problems. Relieving factors include elevation of legs and reduced activity with mild improvement in symptoms. Patient denies DVT, phlebitis and treatment with blood thinners. Noticed the swelling in October. Had venous duplex- negative for DVT. Went to see orthopedics and had MRI which she was told was normal. PAIN ASSESSMENT: PAIN EVALUATION No data found in the last 1 encounters. Obstetric History No data available Duration of Symptoms: Greater Than 3 Months PAST MEDICAL HISTORY Diagnosis Date Migraine headache PAST SURGICAL HISTORY Procedure Laterality Date ADENOIDECTOMY PRIMARY <AGE 14 HYSTERECTOMY HX 12/28/2014 fibroid, ovaries intact SOCIAL HISTORY: Social History Tobacco Use Smoking status: Never Smoker Smokeless tobacco: Never Used Substance Use Topics Alcohol use: No Drug use: No No family history on file. MEDICATIONS: Lactobacillus acidophilus (PROBIOTIC ORAL) Take 2 tablets by mouth. 2 gummies 500 mil CFU baclofen (LIORESAL) 10 mg tablet Take 10 mg by mouth every 8 hours as needed. Cholecalciferol, Vitamin D3, 25 mcg (1,000 unit) cap Take 1 capsule by mouth once daily. topiramate (TOPAMAX) 25 mg tablet Take 25 mg by mouth once daily. rizatriptan (MAXALT) 10 mg tablet TAKE 1 TABLET BY MOUTH EVERY 2 HOURS UP TO 3 TABLETS DAILY NEEDED FOR HEADACHE MULTI-VITAMIN ORAL Take by mouth. omeprazole (PRILOSEC) 40 mg capsule Take 40 mg by mouth once daily as needed. loratadine (CLARITIN) 10 mg tablet Take 10 mg by mouth once daily. ALLERGIES: ALLERGIES Allergen Reactions Levofloxacin Rash REVIEW of SYSTEMS: Constitutional: No weight loss, malaise or fevers. HEENT: No changes in hearing or vision, no nose bleeds or other nasal problems, Head Positive for headache Respiratory: Negative for cough, wheezing, or shortness of breath Cardiovascular: Positive for leg swelling and palpitations Gatrointestinal: Negative for abdominal discomfort, blood in stools or black stools or change in bowel habits Genitourinary: No history of dysuria, frequency, or incontinence Musculoskeletal: Negative for joint pain or swelling, back pain or muscle pain Endocrine: Negative for cold or heat intolerance, polyuria, polydipsia and goiter Hematology/Lymphatic: Negative for prolonged bleeding, bruising easily or swollen nodes Neurologic: No history or headaches, syncope, paralysis, seizures or tremors Integumentary: Negative for lesions, rash, and itching. PHYSICAL EXAM: VITALS: There were no vitals taken for this visit. General: Alert, oriented, cooperative, healthy appearance Integumentary: Normal color, no rash, no lesions. HEENT: EOM, pupils equal, round and reactive. Cardiovascular: Pulse regular. Lungs: No chest deformities or chest wall tenderness. Abdomen: Not examined Extremities: Left leg varicose veins, prominent proximal posterior thigh fat pad; set get images for photo, no discrete mass palpable Neurological: AAOx3. Normal cognition and motor skills. Vascular: Posterior Tibial Right: Normal - Left: Normal Diagnostic tests reviewed for today's visit: Most recent labs Most recent imaging IMPRESSION: Ms. Goode is a 41 year old female with left lower extremity edema, varicose veins . PLAN and RECOMMENDATIONS: Will get venous reflux testing Discussed etiology of edema may be multifactorial and she may lipedema of left proximal thigh Follow up testing to review results and options Continue walking and exercise as tolerated SIGNATURE: Renetta Mcfarland DO PATIENT NAME: Jody Goode DATE: June 14, 2022 TIME: 8:09 AM documented in this encounter [facility] 04-18-2022 Note HNO ID: [id number] Author: Geovany Dutta MD Service: ? Author Type: Physician Type: Progress Notes Filed: 04/18/2022 7:41 AM Note Text: Patient presents with: Sore Throat: right ear pain x 5 days HPI: Feeling left earache for 6 days. Positive symptoms: Sore throat, Earache, phlegm in the throat, upper abdominal pain, feels hot at night, Negative symptoms: Sinus pressure, Nasal Congestion, Rhinorrhea, Fever, Body Aches, Headache, Nausea, Vomiting, Diarrhea, OTC: Dayquil Had COVID booster in October. PAST MEDICAL HISTORY Diagnosis Date - Migraine headache PAST SURGICAL HISTORY Procedure Laterality Date - ADENOIDECTOMY PRIMARY - HYSTERECTOMY HX 12/28/2014 fibroid MEDICATIONS: Current Outpatient Medications Medication Sig - baclofen (LIORESAL) 10 mg tablet Take 10 mg by mouth every 8 hours as needed. - omeprazole (PRILOSEC) 40 mg capsule Take 40 mg by mouth once daily as needed. - Cholecalciferol, Vitamin D3, 25 mcg (1,000 unit) cap Take 1 capsule by mouth once daily. - topiramate (TOPAMAX) 25 mg tablet Take 25 mg by mouth once daily. - rizatriptan (MAXALT) 10 mg tablet TAKE 1 TABLET BY MOUTH EVERY 2 HOURS UP TO 3 TABLETS DAILY NEEDED FOR HEADACHE - MULTI-VITAMIN ORAL Take by mouth. - loratadine (CLARITIN) 10 mg tablet Take 10 mg by mouth once daily. (Patient not taking: Reported on 11/10/2021 ) No current facility-administered medications for this visit. ALLERGIES: ALLERGIES No Known Allergies VITALS: BP 124/80 Pulse 94 Temp 37 ?C (98.6 ?F) Resp 16 Wt 83.5 kg (184 lb) SpO2 99% PHYSICAL EXAM: GEN: mildly ill appearing HEENT: PERRL, EOMI, conjunctiva clear Ears: canals clear. TMs without erythema, bulge, or effusion. Left TMJ uncomfortable with palpation Sinuses: non-tender frontal sinus, non-tender maxillary sinuses Throat: moist mucous membranes, left greater than right tonsillar erythema, no exudate Neck: supple, no thyromegaly, no lymphadenopathy HEART: regular rate and rhythm, no murmurs LUNGS: clear to auscultation, no wheezes or crackles, no increased WOB ASSESSMENT/PLAN: 1. Sore throat - ICD9: 462, ICD10: J02.9 - STREP A MOLECULAR (POC) - negative - suspect viral pharyngitis, differential includes COVID-19. May additionally have left TMJ arthralgia. - Discussed supportive care treatment with and analgesia. - Red flags to seek further treatment include chest pain, shortness of breath, and lethargy; in the ER if severe. - 2019 CORONAVIRUS Geovany Dutta MD [facility] 04-18-2022 History of Present illness Narrative Patient presents with: Sore Throat: right ear pain x 5 days HPI: Feeling left earache for 6 days. Positive symptoms: Sore throat, Earache, phlegm in the throat, upper abdominal pain, feels hot at night, Negative symptoms: Sinus pressure, Nasal Congestion, Rhinorrhea, Fever, Body Aches, Headache, Nausea, Vomiting, Diarrhea, OTC: Reynold Had COVID booster in October. PAST MEDICAL HISTORY Diagnosis Date Migraine headache PAST SURGICAL HISTORY Procedure Laterality Date ADENOIDECTOMY PRIMARY <AGE 14 HYSTERECTOMY HX 12/28/2014 fibroid MEDICATIONS: Current Outpatient Medications Medication Sig baclofen (LIORESAL) 10 mg tablet Take 10 mg by mouth every 8 hours as needed. omeprazole (PRILOSEC) 40 mg capsule Take 40 mg by mouth once daily as needed. Cholecalciferol, Vitamin D3, 25 mcg (1,000 unit) cap Take 1 capsule by mouth once daily. topiramate (TOPAMAX) 25 mg tablet Take 25 mg by mouth once daily. rizatriptan (MAXALT) 10 mg tablet TAKE 1 TABLET BY MOUTH EVERY 2 HOURS UP TO 3 TABLETS DAILY NEEDED FOR HEADACHE MULTI-VITAMIN ORAL Take by mouth. loratadine (CLARITIN) 10 mg tablet Take 10 mg by mouth once daily. (Patient not taking: Reported on 11/10/2021 ) No current facility-administered medications for this visit. ALLERGIES: ALLERGIES No Known Allergies VITALS: BP 124/80 Pulse 94 Temp 37 C (98.6 F) Resp 16 Wt 83.5 kg (184 lb) SpO2 99% PHYSICAL EXAM: GEN: mildly ill appearing HEENT: PERRL, EOMI, conjunctiva clear Ears: canals clear. TMs without erythema, bulge, or effusion. Left TMJ uncomfortable with palpation Sinuses: non-tender frontal sinus, non-tender maxillary sinuses Throat: moist mucous membranes, left greater than right tonsillar erythema, no exudate Neck: supple, no thyromegaly, no lymphadenopathy HEART: regular rate and rhythm, no murmurs LUNGS: clear to auscultation, no wheezes or crackles, no increased WOB ASSESSMENT/PLAN: 1. Sore throat - ICD9: 462, ICD10: J02.9 - STREP A MOLECULAR (POC) - negative - suspect viral pharyngitis, differential includes COVID-19. May additionally have left TMJ arthralgia. - Discussed supportive care treatment with and analgesia. - Red flags to seek further treatment include chest pain, shortness of breath, and lethargy; in the ER if severe. - 2019 CORONAVIRUS Geovany Dutta MD documented in this encounter [facility] 11-10-2021 Note HNO ID: [id number] Author: Reggie Huggins APRN.S[employer]IOR [employer]CHITECT Service: ? Author Type: Nurse Practitioner Type: Progress Notes Filed: 11/10/2021 4:12 PM Note Text: Subjective HPI Nontoxic-appearing female presents urgent care chief complaint left thigh swelling. Duration of symptoms today. Associated symptoms left thigh swelling. Patient states noticed this today when she was getting dressed. Denies any pain with today's chief complaint. Denies any injury. No numbness no tingling. No decreased sensation. Denies any OTC medication use. Denies history DVT PE recent surgery. Denies any cough chest pain pleuritic pain hemoptysis fever body aches chills nausea vomiting abdominal pain or change in bowel or bladder habit. Past medical history prescription medication use allergies reviewed. .Patient presents with: Swelling: LEFT thigh area x today History reviewed. No pertinent past medical history. PAST SURGICAL HISTORY Procedure Laterality Date - HYSTERECTOMY HX 12/2014 ALLERGIES Patient has no known allergies. MEDICATIONS Cholecalciferol, Vitamin D3, 25 mcg (1,000 unit) cap Take 1 capsule by mouth once daily. topiramate (TOPAMAX) 25 mg tablet Take 25 mg by mouth once daily. rizatriptan (MAXALT) 10 mg tablet TAKE 1 TABLET BY MOUTH EVERY 2 HOURS UP TO 3 TABLETS DAILY NEEDED FOR HEADACHE MULTI-VITAMIN ORAL Take by mouth. SUMAtriptan (IMITREX) 50 mg tablet TAKE 1 TABLET BY ORAL ROUTE EVERY 2 HOURS NO MORE THAN 2 IN 24 HOURS. meclizine (ANTIVERT) 25 mg tab TAKE 1 TABLET BY MOUTH THREE TIMES A DAY NEEDED FOR DIZZINESS loratadine (CLARITIN) 10 mg tablet Take 10 mg by mouth once daily. tiZANidine (ZANAFLEX) 2 mg tablet TAKE 1 TABLET BY MOUTH EVERY 8 HOURS NEEDED NO MORE THAN 3 DOSES IN 24 HOURS History reviewed. No pertinent family history. Social History Tobacco Use - Smoking status: Never Smoker - Smokeless tobacco: Never Used Substance Use Topics - Alcohol use: No - Drug use: No BP 124/86 Pulse 97 Temp 37.1 ?C (98.7 ?F) (Left Tympanic) Resp 16 Wt 85.5 kg (188 lb 9.6 oz) SpO2 98% Review of Systems Constitutional: Negative for chills, fever and malaise/fatigue. HENT: Negative for congestion, ear discharge, ear pain, sinus pain and sore throat. Eyes: Negative for blurred vision, pain, discharge and redness. Respiratory: Negative for cough, hemoptysis, sputum production, shortness of breath, wheezing and stridor. Cardiovascular: Negative for chest pain. Gastrointestinal: Negative for abdominal pain, diarrhea, nausea and vomiting. Musculoskeletal: Negative for myalgias. Skin: Negative for itching and rash. Neurological: Negative for dizziness and headaches. Objective Physical Exam Constitutional: General: She is not in acute distress. Appearance: She is not diaphoretic. HENT: Head: Normocephalic. Mouth/Throat: Mouth: Mucous membranes are moist. Pharynx: Oropharynx is clear. No oropharyngeal exudate or posterior oropharyngeal erythema. Eyes: Conjunctiva/sclera: Conjunctivae normal. Pupils: Pupils are equal, round, and reactive to light. Cardiovascular: Rate and Rhythm: Normal rate and regular rhythm. Heart sounds: Normal heart sounds. Pulmonary: Effort: Pulmonary effort is normal. No tachypnea, accessory muscle usage or respiratory distress. Breath sounds: Normal breath sounds. No stridor. Abdominal: Palpations: Abdomen is soft. Tenderness: There is no abdominal tenderness. Musculoskeletal: Cervical back: Normal range of motion and neck supple. No rigidity or tenderness. Left upper leg: Swelling present. No edema, deformity, lacerations, tenderness or bony tenderness. Left knee: Normal. Left lower leg: Normal. Legs: Comments: No erythema. Neurovascular intact. No breaks in skin. No pain with palpation. 2 cm discrepancy between right thigh and left thigh. No inguinal adenopathy. No evidence of bacterial infection. No desquamation of skin. No rashes. Lymphadenopathy: Cervical: No cervical adenopathy. Skin: General: Skin is warm and dry. Neurological: Mental Status: She is alert and oriented to person, place, and time. ASSESSMENT/PLAN: 1. Leg edema, left - ICD9: 782.3, ICD10: R60.0 - US LEG VEIN DVT UNL VAS LAB IMPRESSION ? RIGHT SIDE - DEEP VEINS Spontaneous and respirophasic flow noted in the common femoral vein. ? LEFT SIDE - DEEP VEINS Negative for acute deep vein thrombosis. ? LEFT SIDE - SUPERFICIAL VEINS Negative for superficial thrombophlebitis in the great saphenous vein and small saphenous vein. No evidence of DVT. Suspicious of lymphedema. Treat conservatively. Red flags for prompt reevaluation discussed. Will follow up with PCP in the next 2 to 3 days for reevaluation. Patient was educated on supportive therapies. Patient will follow up with primary care provider as needed. Patient was instructed to immediately proceed to emergency room for any ne (more content not included)... [facility] Diagnosis Symptomatic varicose veins of left lower extremity- Primary [facility] Diagnosis Symptomatic varicose veins of left lower extremity- Primary [facility] Outpatient Procedure (Routine) - Authorized Specialty Diagnoses / Procedures Referred By Contac t Referred To Contact [facility] Diagnoses Symptomatic varicose veins of left lower extremity Procedures US VENOUS INCOMPETENCY UNL VAS LAB DUP-SCAN XTR VEINS UNILATERAL/LIMITED STUDY Renetta Mcfarland DO [address] [place] [address] [facility] [address] [place] [address] Referral ID Status Reason Start Date Expiration Date Visits Requested Visits Authorized [id number] Authorized Auto-Generat ed Referral 06/14/2022 06/14/2023 1 1 [facility] Health Concerns Infection Onset Date Last Indicated Resolved Time COVID-19 Rule-Out 04/18/2022 04/18/2022 Summary Purpose Family History No Family History Records Found Advance Directives No Advanced Directives Records Found Additional Source Comments Source Comments (unrecognize d section and content) In the event this informatio n is protected by the Federal Confidentiality of Alcohol and Drug Abuse Patient Records regulations: The Federal rules restrict any use of the information to criminally investigate or prosecute any alcohol or drug abuse patient.[facility] the event this information is protected by the Federal Confidentiality of Alcohol and Drug Abuse Patient Records regulations: The Federal rules restrict any use of the information to criminally investigate or prosecute any alcohol or drug abuse patient.[facility] the event this information is protected by the Federal Confidentiality of Alcohol and Drug Abuse Patient Records regulations: The Federal rules restrict any use of the information to criminally investigate or prosecute any alcohol or drug abuse patient.[facility] Reason for Visit (unrecogniz ed section and content) Reason Comments New Patient Reason Comments Follow Up Care Teams (unrecognized sec tion and content) Recorder [employer] Relationship Specialty Start Date End Date Sánchez Lopez MD PCP - General Family Practice 09/23/15 Recorder [employer] Relationship Specialty Start Date End Date Sánchez Lopez MD PCP - General Family Practice 09/23/15 INFORMATION SOURCE (unrecogn ized section and content) FOR RECORDS PERTAINING TO PATIENTS WHO ARE OR HAVE BEEN ENROLLED IN A CHEMICAL DEPENDENCY/SUBSTANCEABUSE PROGRAM, SOME INFORMATION MAY BE OMITTED. This clinical summary was aggregated from multiple sources. Caution should be exercised in using it in the provision of clinical care. This summary normalizes information from multiple sources, and as a consequence, information in this document may materially change the coding, format and clinical context of patient data. In addition, data may be omitted in some cases. CLINICAL DECISIONS SHOULD BE BASED ON THE PRIMARY CLINICAL RECORDS. [employer] provides no warranty or guarantee of the accuracy or completeness of information in this document.
[2023-12-11 11:17] LABS: Erythrocyte Sedimentation Rate 10 mm/hr (0-30)
[2023-12-11 11:30] LABS: Vitamin B12 647 pg/mL (211-911)
[2023-12-11 11:42] LABS: Ferritin 194 ng/mL (8-252); Free T3 2.5 pg/mL (2.18-3.98); LDH 193 U/L (84-246); T4 Free Direct 0.95 ng/dL (0.76-1.46); Thyroid Stim Hormone (TSH) 2.38 uIU/mL (0.358-3.74)
[2023-12-13 13:07] LABS: Anti-Centromere B Ab <0.2 AI (0.0-0.9); Anti-Chromatin <0.2 AI (0.0-0.9); Anti-Jo <0.2 AI (0.0-0.9); Anti-Scleroderma-70 AB <0.2 AI (0.0-0.9); Anti-dsDNA Ab <1 IU/mL (0-9); RNP Ab 0.2 AI (0.0-0.9); SJOGREN'S Anti-SS-A test < 0.2 AI (0.0-0.9); SJOGREN'S Anti-SS-B test < 0.2 AI (0.0-0.9); Smith Ab <0.2 AI (0.0-0.9)
[2023-12-14 00:06] LABS: Cytoplasmic Ab (C-ANCA) <1:20 titer (Neg:<1:20); Endomysial Antibody IgA Negative (Negative); Erythropoietin 5.8 mIU/mL (2.6-18.5); IgG, Quant 1238 mg/dL (586-1602); Immunoglobulin A 345 mg/dL (87-352); Immunoglobulin E 7 IU/mL (6-495); Immunoglobulin G, Subclass 1 689 mg/dL (248-810); Immunoglobulin G, Subclass 2 459 mg/dL (130-555); Immunoglobulin G, Subclass 3 37 mg/dL (15-102); Immunoglobulin G, Subclass 4 15 mg/dL (2-96); Immunoglobulin M 228 mg/dL (26-217); Perinuclear Ab (P-ANCA) <1:20 titer (Neg:<1:20); t-Transglutaminase IgA <2 U/mL (0-3)
== END | disposition home or self-care (01) ==
LOC: LAB 10:38
PROVIDERS: PCP Family Medicine; Referring Provider Internal Medicine Gastroenterology; Visit Provider Internal Medicine Gastroenterology
DX: R10.9 Unspecified abdominal pain (principal)
CPT/HCPCS: 36415; 82607; 82652; 82668; 82728; 82784; 82785; 82787; 83516; 83615; 84439; 84443; 84481; 85652; 86225; 86235; 86255; 86256

== ENCOUNTER → 2024-01-09 | Outpatient (CLI) | payer BC, SELFPAY ==
--- NOTE | 2024-01-09 07:56 | BI_ITS ---
MAMMOGRAPHY - BILATERAL SCREENING REASON FOR EXAM: Female, 43 years old. Routine annual screening examination. PERTINENT HISTORY: Aunt with breast cancer. TECHNIQUE: Digital bilateral breast ernestina (3D mammographic acquisition) in the CC and MLO projections. 2-D mediolateral oblique (MLO) and craniocaudad (CC) views of both breasts were obtained. CAD: Full Field Digital Mammography with Computer Added Detection was performed. COMPARISON: Comparison is made with prior study dated December 27, 2022 and October 17, 2021. FINDINGS: Breast Composition: The breasts are extremely dense, which lowers the sensitivity of mammography. There are no dominant masses or suspicious calcifications. No other significant abnormalities are identified. There has been no significant change since the prior study. BI/SCRN MAMM (CAD)W/ERNESTINA BILAT IMPRESSION: Stable bilateral screening mammogram. Yearly follow-up mammogram recommended. (A) ASSESSMENT CATEGORY: BIRADS Category 2: Benign. A letter regarding these results will be sent to the patient by the facility within 30 days. Approximately 10% of breast cancers are not detected by mammography. A normal mammogram should not delay biopsy of a clinically suspicious abnormality. [id number] Electronically Signed: Ry Lee MD at 10:11 EST ,
--- OUTSIDE RECORDS SUMMARY | 2024-01-09 08:10 | XMS RPT_ITS | CCD ---
Author Name Unknown Address [address] [place] [address] Organization [facility] Care Team Providers Care Production Control Pegboard Clerk Name Role Phone John LUCIANO, Sánchez Saravia Primary Care Provider Allergies Allergy Classification Reported Allergen(s) Allergy Type Date of Onset Reaction(s) Facility (2 sources) levoFLOXacin Drug Allergy 03-11-2021 Rash [facility] Medications Current Medications Medication Drug Class(es) Dates [...] 83.92 kg Renetta Mcfarland DO Work Phone: [facility] 06-28-2022 10:39-0400 Diastolic blood pressure 85 mm[Hg] Renetta Mcfarland DO Work Phone: [facility] 06-28-2022 10:39-0400 Heart rate 75 /min Renetta Mcfarland DO Work Phone: [facility] 06-28-2022 10:39-0400 SaO2% (BldA) [Mass fraction] 100 % Renetta Mcfarland DO Work Phone: [facility] 06-28-2022 10:39-0400 Systolic blood pressure 138 mm[Hg] Renetta Mcfarland DO Work Phone: [facility] 06-14-2022 08:08-0400 Body height 165.1 cm Renetta Mcfarland DO Work Phone: [facility] 06-14-2022 08:08-0400 Body weight 82.56 kg Renetta Mcfarland DO Work Phone: [facility] 06-14-2022 08:08-0400 Diastolic blood pressure 87 mm[Hg] Renetta Mcfarland DO Work Phone: [facility] 06-14-2022 08:08-0400 Heart rate 80 /min Renetta Mcfarland DO Work Phone: [facility] 06-14-2022 08:08-0400 SaO2% (BldA) [Mass fraction] 99 % Renetta Mcfarland DO Work Phone: [facility] 06-14-2022 08:08-0400 Systolic blood pressure 126 mm[Hg] Renetta Coppolale DO Work Phone: [facility] 04-18-2022 07:17-0400 Body temperature 98.6 [degF] Geovany Dutta MD Work Phone: [facility] 04-18-2022 07:17-0400 Body weight 83.46 kg Geovany Dutta MD Work Phone: [facility] 04-18-2022 07:17-0400 Diastolic blood pressure 80 mm[Hg] Geovany Dutta MD Work Phone: [facility] 04-18-2022 07:17-0400 Heart rate 94 /min Geovany Dutta MD Work Phone: [facility] 04-18-2022 07:17-0400 Respiratory rate 16 /min Geovany Dutta MD Work Phone: [facility] 04-18-2022 07:17-0400 SaO2% (BldA) [Mass fraction] 99 % Geovany Dutta MD Work Phone: [facility] 04-18-2022 07:170400 Systolic blood pressure 124 mm[Hg] Geovany Dutta MD Work Phone: [facility] Encounters Encounter Date Encounter Type Care Provider Facility Start: 06-28-2022 End: 06-28-2022 Patient encounter procedure Renetta Mcfarland DO Work Phone: Vascular Surgery Procedures Date Procedure Procedure Detail Performing Clinician Start: 04-18-2022 STREP A MOLECULAR (POC) Geovany Dutta MD Work Phone: Plan of Treatment Date Care Activity Detail Author Start: 07-28-2022 Influenza vaccination INFLUENZA (#1) [facility] Start: 04-18-2022 End: 05-02-2022 SARS-CoV-2 (COVID-19) RNA [Presence] in Respiratory specimen by VANNESSA with probe detection 2019 CORONAVIRUS Microbiology Routine Sore throat Expected: 04/18/2022, Expires: 05/02/2022 [facility] Work Phone: Payers Date Payer Category Payer Private Health Insurance [facility] CHO[employer] PLUS [id number] 2020-Present [phone] [address] [place] [address] HMO [id number] Social History Date Type Detail Facility Start: 09-23-2015 Tobacco smoking stat us LAIS Never smoked tobacco [facility] Start: 09-23-2015 Tobacco use and exposure Smokeless tobacco non-user [facility] Start: 04-18-2022 End: 06-28-2022 Alcohol intake Current non-drinker of alcohol (finding) [facility] Start: 1980 Sex Assigned At Not on file C [facility] Start: 04-08-2022 End: 06-28-2022 Exposure to SARS-CoV-2 (event) Not sure [facility] Work Phone: Clinical Notes 11-10-2021 to 06-28-2022 Renetta Mcfarland DO - 06/28/2022 10:44 AM Jenny Mcafrland DO - 06/28/2022 12:00 AM Jenny Mcfarland DO - 06/14/2022 8:09 AM Pelon Dutta MD - 04/18/2022 7:22 AM EDT Note Date & Type Note Facility 06-28-2022 Note HNO ID: [id number] Author: Renetta Mcfarland DO Service: Vascular Surgery Author Type: Physician Type: Progress Notes Filed: 06/29/2022 3:41 PM Note Text: NAME: [facility] NO: [id number] DATE OF SERVICE: 06/28/2022 Subjective: Jody is [...] schedule. Renetta Mcfarland D.O. KB/089 Audio #: [id number] Date Dictated: 06/28/2022 09:07:14 Date Typed: 06/29/2022 13:31:10 Date Revised: [facility] 06-28-2022 Note HNO ID: [id number] Author: Renetta Mcfarland DO Service: ? Author Type: Physician Type: Progress Notes Filed: 06/29/2022 2:12 PM Note Text: This office note has been dictated. Renetta Mcfarland DO' [facility] 06-28-2022 History of Present illness Narrative This office note has been dictated. Renetta Mcfarland DO' NAME: [facility] NO: [id number] DATE OF SERVICE: 06/28/2022 Subjective: Jody is [...] schedule. Renetta Mcfarland D.O. KB/089 Audio #: [id number] Date Dictated: 06/28/2022 09:07:14 Date Typed: 06/29/2022 13:31:10 Date Revised: documented in this encounter [facility] 06-14-2022 Note HNO ID: [id number] Author: Renetta Mcfarland, DO Service: ? Author Type: Physician Type: Progress Notes Filed: 06/14/2022 9:41 AM Note Text: [facility] [place] DEPARTMENT OF VASCULAR SURGERY OUTPATIENT VISIT DATE [...] DATE: June 14, 2022 TIME: 8:09 AM [facility] 06-14-2022 History of Present illness Narrative Images from the original note were not included. [facility] [place] DEPARTMENT OF VASCULAR SURGERY OUTPATIENT VISIT DATE [...] TIME: 8:09 AM documented in this encounter [facility] 04-18-2022 Note HNO ID: [id number] Author: Geovany Dutta MD Service: ? Author [...] severe. - 2019 CORONAVIRUS Geovany Dutta MD [facility] 04-18-2022 History of Present illness Narrative Patient [...] Geovany Dutta MD documented in this encounter [facility] 11-10-2021 Note HNO ID: [id number] Author: Reggie Huggins APRN.CARD FOLDER Service: ? Author Type: Nurse Practitioner Type: [...] for any ne (more content not included)... [facility] Diagnosis Symptomatic varicose veins of left lower extremity- Primary [facility]* Diagnosis Symptomatic varicose veins of left lower extremity- Primary [facility] (n[facility])* Outpatient Procedure (Routine) - Authorized Specialty Diagnoses / Procedures Referred By Contac t Referred To Contact [facility] Diagnoses Symptomatic varicose veins of left lower extremity Procedures US VENOUS INCOMPETENCY UNL VAS LAB DUP-SCAN XTR VEINS UNILATERAL/LIMITED STUDY Renetta Mcfarland DO [address] [place] [address] [facility] [place] [address] [place] [address] Referral ID Status Reason Start Date Expiration Date Visits Requested Visits Authorized [id number] Authorized Auto-Generat ed Referral 06/14/2022 06/14/2023 1 1 [facility] Health Concerns Infection Onset Date Last Indicated [...] or prosecute any alcohol or drug abuse patient.[facility] the event this information is protected by the Federal Confidentiality of Alcohol and Drug Abuse Patient Records regulations: The Federal rules restrict any use of the information to criminally investigate or prosecute any alcohol or drug abuse patient.[facility] the event this information is protected by the Federal Confidentiality of Alcohol and Drug Abuse Patient Records regulations: The Federal rules restrict any use of the information to criminally investigate or prosecute any alcohol or drug abuse patient.[facility] Reason for Visit (unrecogniz ed section and content) Reason Comments New Patient Reason Comments Follow Up Care Teams (unrecognized sec tion and content) Production Control Pegboard Clerk Relationship Specialty Start Date End Date Sánchez Lopez MD PCP - General Family Practice 09/23/15 Production Control Pegboard Clerk Relationship Specialty Start Date End Date Sánchez [...] BE BASED ON THE PRIMARY CLINICAL RECORDS. [employer] provides no warranty or guarantee of the accuracy or completeness of information in this document.
== END | disposition home or self-care (01) ==
LOC: OPBI 07:56
PROVIDERS: PCP Family Medicine; Referring Provider Obstetrics & Gynecology; Visit Provider Obstetrics & Gynecology
DX: Z12.31 Encounter for screening mammogram for malignant neoplasm of breast (principal); Z80.3 Family history of malignant neoplasm of breast
CPT/HCPCS: 77063; 77067

== ENCOUNTER 2024-04-02 10:55 | Day surgery (SDC) | payer BC, SELFPAY ==
[2024-04-02 11:09] VITALS: BP 134/93; PULSE 89; RESP 16; TEMP 37.3; O2SAT 100; BMI 31.8
[2024-04-02] MEDS: Lactated Ringers 1,000 ML 15 ML IV (11:15)
--- NOTE | 2024-04-02 12:00 | COLBX_PTH ---
PATIENT: ELLE GOODE LOC: EN U#:[id number] AGE/SX: 43/F ROOM: RE04/02/[address]: Dr. Skyler Young DO : 1980 BED: DIS: 04/02/2024 SPEC #: [id number] RECD: 04/02/24 13:27 STATUS: STAS YUNIOR #: [id number] DARIAN: 04/02/24 12:[address]: Skyler Young DEPT: SURGICAL PATHOLOGY RECD BY: Darcie Lino ENTERED: 04/02/24 13:59 SP TYPE: COLON BX OTHR DR: Dr. Jose Luis Donnelly DO Tissues: Sigmoid colon biopsy Procedures: Surgery Specimen Level IV HEADER OPERATION: Colonoscopy biopsy PRE-OP DIAGNOSIS: Abdominal pain, polycythemia, chronic constipation TISSUE SUBMITTED: Sigmoid colon biopsy MICROSCOPIC DIAGNOSIS Sigmoid colon, biopsy: Fragments of colonic mucosa, no pathologic diagnosis. SAMARA/ 04/03/24 MICROSCOPIC DESCRIPTION Slides are reviewed. GROSS DESCRIPTION Received in fixative is one container labeled with the patient's name and designated Sigmoid colon biopsy. The specimen consists of two irregular fragments of light mercado soft tissue that measure in aggregate 0.5 x 0.2 x 0.2 cm. The specimen is totally submitted in one cassette. mr 04/02/24 TC:5 CPT:21587
--- NOTE | 2024-04-02 12:27 | HP.PCM_ITS ---
History and Physical Date of Admission: 04/02/24 43 F who presents to the office today for PCP OV 11.29.22 with LUQ/rib pain and irregular bowel pattern with soft stools and unintended weight gain of 15-20lbs. Notes history of mouth bumps/sores; ENT instructed to gargle with salt water which was not helpful. Omeprazole attempted and ineffective. ? KUB 11.29.22 without acute/chronic abnormality. ? CT abd/pel 12.15.22 colonic diverticulosis. ? Biochemical 12.19 CBC, ESR, CMP, LDH, CRP, triglycerides, c holesterol, TSH, T4, BAN screen without pertinent abnormality. *BGI established 7.06.18 When apt made she was having severe LLQ pain, PCP seen and treated for diverticulitis and resolved with ATB therapy. This was the initial episode of diverticulitis. Since infection she has been having constipation with no BM for several days followed by several days of small harder stools with some mild abdominal discomfort and one day of frequent loose stools. Prior to infection she was having a normal BM each day. Notes some intermittent epigastric discomfort; does not have active reflux symptoms, is not on PPI. Start Linzess 145mcg. Contact 06.21.23 with concern for abdominal pain, feels it is related to Linzess use. Ok to stop Linzess. Start dicyclomine. ? KUB without acute/chronic finding. ? GET 06.27.23 57.93 minutes (12-56) Contact 07.04.23 with results; she is doing well with start of dicyclomine. OV 12.11.23 she was having LLQ discomfort in the last couple of weeks with history of ovarian cyst, gynecology recommended pain relief and hot compress which was effective. With use of dicyclomine BID she is having much improved frequency and intensity upper abdominal discomfort; upper abdominal discomfort approximately once a week and is self-resolving after hours to days. BM occur at least every other day, but occur daily with complete evacuation. Quality Reporting Tobacco Screening ([facility]) Smoking Status: Never smoker Assessment and Plan Assessment and Plan (1) Abdominal pain: Status: Chronic (2) Abdominal pain: Status: Chronic (3) Polycythemia: Status: Acute (4) Chronic constipation: Status: Chronic Plan: Review CT scan abdomen pelvis she may have some gastric motility issues may be contributing to her constipation. She has no signs and symptoms of any other abnormalities except for shortness of diverticulitis. She has no fatigue, no bleeding, lethargy or any abnormal signs at this time. For now the differential diagnosis includes chronic idiopathic constipation possibly secondary to slow transit constipation, IBS-C versus pelvic floor dysfunction. We will recomm ended Fiber Choice 1 tab twice a day and Linzess 145 mcg 30 minutes before first meal. She also underwent a gastric emptying study. Her symptoms got worse when she took the Linzess. So we stopped the Linzess and she has been on dicyclomine. Her bowel movements have been intermittent. She does have migraine disorder that is better controlled under the use of topiramate 25 mg p.o. twice daily. What is interesting is that she does have a prolonged gastric emptying study that can be associated with migraine disorder is not under control. She says she gets clusters of migraines about 1 week per mouth requiring her to take rizatriptan What is also interesting is that her hemoglobin and hematocrit have been persistently elevated over the last 5 years since 2019 and she does notice when her hemoglobin and hematocrit are elevated she does have worsening headaches. I am not sure if hyperviscosity from her hemoglobin and hematocrit being elevated is contributing to her headaches. I think it is good to do some screening for primary or secondary polycythemia due to the ongoing risk of thrombotic event and progression to leukemia. She has not had any thromboembolic events in the past. She does not take control. She does not smoke cigarettes. She is not around anyone to smoke cigarettes. She does not go to any is of high altitude. She does not have a diagnosis of COPD. She has had her heart checked out and she has no history of congenital or acquired heart disease. She has no kidney disease. She does not take any steroids. On her imaging she did not have any lesions or masses. Therefore we will get erythropoietin level and possibly German 2 mutation pending erythropoietin level. Will also look for other secondary causes of polycythemia... Orders: Orders Erythropoietin Today R10.9 - Unspecified abdominal pain Erythrocyte Sed Rate Today R10.9 - Unspecified abdominal pain Ferritin Today R10.9 - Unspecified abdominal pain Celiac Disease Profile Today R10.9 - Unspecified abdominal pain BAN Comprehensive Panel Today R10.9 - Unspecified abdominal pain LDH Today R10.9 - Unspecified abdominal pain Thyroid Stim Hormone (TSH) Today R10.9 - Unspecified abdominal pain Vitamin B12 Today R10.9 - Unspecified abdominal pain Vitamin D 1,25-Dihydroxy Today R10.9 - Unspecified abdominal pain Free T3 Today R10.9 - Unspecified abdominal pain T4 Free Direct Today R10.9 - Unspecified abdominal pain IgG Subclasses Today R10.9 - Unspecified abdominal pain Immunoglobulins G/A/M/E Today R10.9 - Unspecified abdominal pain ANCA Today R10.9 - Unspecified abdominal pain Medications: Discontinued linaclotide (Linzess) Discontinued Reason: Order Completed 145 mcg PO DAILY 30 caps 11RF I have examined the patient and the H&P has been reviewed. There are no clinical changes since date of exam.
[2024-04-02 13:10] VITALS: BP 118/69; BP 134/93; PULSE 86; RESP 16; TEMP 36.7; O2SAT 93
--- NOTE | 2024-04-02 13:12 | OP.COLON_ITS ---
Patient Name: Jody Vicente Procedure Date: 04/02/2024 12:25 PM Date of : 1980 Age: 43 Procedure: Colonoscopy Indications: Abdominal pain in the left lower quadrant Providers: Skyler Young DO Medicines: Monitored Anesthesia Care Patient Profile: This is a 43 year old female. Refer to note in patient chart for documentation of history and physical. Last Colonoscopy: none. The patient's first colonoscopy is today. Complications: No immediate complications. Procedure: Pre-Anesthesia Assessment: - Prior to the procedure, a History and Physical was performed, and patient medications and allergies were reviewed. The patient is competent. The risks and benefits of the procedure and the sedation options and risks were discussed with the patient. All questions were answered and informed consent was obtained. Patient identification and proposed procedure were verified by the physician in the pre-procedure area. Mental Status Examination: alert and oriented. Airway Examination: normal oropharyngeal airway and neck mobility. Respiratory Examination: clear to auscultation. CV Examination: normal. Prophylactic Antibiotics: The patient does not require prophylactic antibiotics. Prior Anticoagulants: The patient has taken no anticoagulant or antiplatelet agents. ASA Grade Assessment: II - A patient with mild systemic disease. After reviewing the risks and benefits, the patient was deemed in satisfactory condition to undergo the procedure. The anesthesia plan was to use monitored anesthesia care (MAC). Immediately prior to administration of medications, the patient was re-assessed for adequacy to receive sedatives. The heart rate, respiratory rate, oxygen saturations, blood pressure, adequacy of pulmonary ventilation, and response to care were monitored throughout the procedure. The physical status of the patient was re-assessed after the procedure. After I obtained informed consent, the scope was passed under direct vision. Throughout the procedure, the patient's blood pressure, pulse, and oxygen saturations were monitored continuously. The colonoscope was introduced through the anus and advanced to the terminal ileum. The colonoscopy was performed without difficulty. The patient tolerated the procedure well. The quality of the bowel preparation was good. The ileocecal valve, appendiceal orifice, and rectum were photographed. Scope In: 12:41:32 PM Scope Withdrawal Time 0 hours 9 minutes 43 seconds Scope Out: 1:05:23 PM Total Procedure Duration Time 0 hours 23 minutes 51 seconds Findings: The perianal and digital rectal examinations were normal. Multiple small and large-mouthed diverticula were found in the recto-sigmoid colon, sigmoid colon and descending colon. Biopsies were taken with a cold forceps for histology. Verification of patient identification for the specimen was done. Estimated blood loss was minimal. A benign-appearing, intrinsic moderate stenosis measuring 3 cm (in length) was found in the sigmoid colon and was traversed. The exam was otherwise without abnormality on direct and retroflexion views. Impression: - Diverticulosis in the recto-sigmoid colon, in the sigmoid colon and in the descending colon. Biopsied. - Stricture in the sigmoid colon. - The examination was otherwise normal on direct and retroflexion views. Recommendation: - Discharge patient to home. - Resume previous diet. - Continue present medications. - Await pathology results. - Repeat colonoscopy in 5 years for surveillance. Procedure Code(s): --- Professional --- 69254, Colonoscopy, flexible; with biopsy, single or multiple CPT copyright 2021 [employer] [place] [employer]. All rights reserved. The codes documented in this report are preliminary and upon bus analyst review may be revised to meet current compliance requirements. Skyler Young DO 04/02/2024 1:12:18 PM This report has been signed electronically. Number of Addenda: 0 Note Initiated On: 04/02/2024 12:25 PM
--- NOTE | 2024-04-02 13:12 | OP.CCLET_ITS ---
04/02/2024 Jose Luis Donnelly [address] [facility] [place] [address] Re : Colonoscopy procedure for Jody Vicente Dear Dr. Donnelly This procedure was performed on Tuesday, April 02, 2024. My impressions and recommendations are as follows: Impressions : - Diverticulosis in the recto-sigmoid colon, in the sigmoid colon and in the descending colon. Biopsied. - Stricture in the sigmoid colon. - The examination was otherwise normal on direct and retroflexion views. Recommendations : - Discharge patient to home. - Resume previous diet. - Continue present medications. - Await pathology results. - Repeat colonoscopy in 5 years for surveillance. My findings are described in the full procedure note, which is enclosed. If I can be of further assistance, please feel free to contact me at . Sincerely, Skyler Young, 04/02/2024 1:12:18 PM This report has been signed electronically.
[2024-04-02 13:15] VITALS: BP 116/84; BP 134/93; PULSE 78; RESP 16; O2SAT 100
[2024-04-02 13:20] VITALS: BP 120/81; BP 134/93; PULSE 85; RESP 16; TEMP 36.9; O2SAT 100
[2024-04-02 13:29] VITALS: BP 134/93
== END 2024-04-02 13:46 | disposition home or self-care (01) ==
LOC: EN 10:56 → AC 10:57
PROVIDERS: PCP Family Medicine; Referring Provider Family Medicine; Visit Provider Internal Medicine Gastroenterology
PROC: 0DJD8ZZ Inspection of Lower Intestinal Tract, Via Natural or Artificial Opening Endoscopic (ICD-10-PCS; CPT 45378; principal; 2024-04-02 11:55)
DX: R10.32 Left lower quadrant pain (principal); K56.699 Other intestinal obstruction unspecified as to partial versus complete obstruction; K57.30 Diverticulosis of large intestine without perforation or abscess without bleeding; K59.09 Other constipation; D75.1 Secondary polycythemia
CPT/HCPCS: 45380; 88305; J7120; J2405

== ENCOUNTER → 2024-07-18 | Outpatient (CLI) | payer BC, SELFPAY ==
[2024-07-18 16:02] LABS: Absolute Lymphocyte Count 2.33 X10^3/uL (0.83-4.51); Absolute Neutrophil Count 7.4 X10^3/uL (2.0-7.7); Basophil# 0.02 X10^3/uL; Basophil% 0.2 % (0-1); Hematocrit 46.9 % (37-47); Hemoglobin 15.3 g/dL (12.0-15.0); Lymphocyte # 2.33 X10^3/ul (0.83-4.51); Lymphocyte % 22.6 % (19-41); Mean Corp Hgb Conc 32.6 g/dL (32-36); Mean Corpuscular Hgb 29.9 pg (27.0-32.0); Mean Corpuscular Volume 91.8 fL (81-99); Mean Platelet Vol. 9.9 fl (6.2-12.0); Monocyte# 0.44 X10^3/uL; Monocyte% 4.3 % (0-10); NRBC Flagged by Analyzer 0 % (0-5); Neutrophil # 7.41 X10^3/uL (2.7-7.7); Neutrophil % 71.6 % (47-70); Platelet Count 282 K/mm3 (150-450); RBC Distribution Width CV 12.4 % (11.6-14.6); Red Blood Count 5.11 M/mm3 (4.2-5.4); White Blood Count 10.3 K/mm3 (4.4-11.0)
[2024-07-18 16:10] LABS: Erythrocyte Sedimentation Rate 7 mm/hr (0-30)
[2024-07-18 16:44] LABS: ALB/GLOB Ratio 1.1 RATIO (0.9-2.4); AST(SGOT) 21 U/L (15-37); Alanine Aminotransfer ALT/SGPT 25 U/L (13-56); Albumin, Serum 4.3 g/dL (3.2-5.0); Alkaline Phosphatase 75 U/L (45-117); Anion Gap 6 (5-15); BUN 10 mg/dL (7-18); BUN/Creat Ratio 10.5 RATIO (10-20); CRP < 2.90 mg/L (0.0-3.0); Calcium,Total 9.5 mg/dL (8.5-10.1); Chloride 105 mmol/L (98-107); Creatinine, Serum 0.95 mg/dL (0.55-1.02); EST Glomerular Filtration Rate 68 mL/min (>60); Est Glom Filt Rate - Afr Amer 83 mL/min (>60); Glucose 85 mg/dL (74-106); Potassium 3.4 mmol/L (3.5-5.1); Protein, Total 8.3 g/dL (6.4-8.2); Sodium Level 137 mmol/L (136-145)
[2024-07-22 14:08] LABS: ANTINUCLEAR ANTIBODIES DIRECT Negative (Negative)
== END | disposition home or self-care (01) ==
PROVIDERS: PCP Family Medicine; Referring Provider Internal Medicine Gastroenterology
DX: K59.09 Other constipation (principal); R10.9 Unspecified abdominal pain; D75.1 Secondary polycythemia
CPT/HCPCS: 36415; 80053; 81240; 81241; 81270; 85025; 85300; 85301; 85303; 85305; 85306; 85652; 86038; 86140; 86147; 86160; 86162; 86225; 86235

== ENCOUNTER → 2024-09-30 | Outpatient (CLI) | payer BC, SELFPAY ==
--- NOTE | 2024-09-30 13:52 | CT_ITS ---
STUDY: CT ABDOMEN AND PELVIS WITH CONTRAST REASON FOR EXAM: Female, 44 years old. Abdominal pain in a new location RADIATION DOSAGE (If Supplied By Facility): CTDIvol = ( 18.14 ) mGy, DLP = ( 1089.20 ) mGycm TECHNIQUE: Transaxial images were obtained from the dome of the diaphragm to the symphysis pubis with oral contrast. Oral and amp;amp; IV Readi-CAT and amp;amp; 100mL Isovue-300 was administered. Sagittal and coronal images were reconstructed. Individualized dose optimization techniques were used for this CT. COMPARISON: Comparison is made with prior study dated December 15, 2022. FINDINGS: The visualized lung bases are unremarkable. The visualized portions of the heart are within normal limits. Normal liver. Normal gallbladder and extrahepatic biliary system. Normal spleen. Findings suggestive of varices in the region of the splenic hilum. Normal pancreas. Normal bilateral adrenal glands. Normal right kidney. Normal left kidney. Normal visualized stomach. Normal small intestine. There are scattered colonic diverticula consistent with diverticulosis. The appendix is visualized and appears normal. There is scattered atherosclerotic calcification of the abdominal aorta, without a demonstrated aneurysm. Normal inferior vena cava. Normal retroperitoneum. Normal urinary bladder. There is a 3.5 cm x 5.1 cm septated cystic structure in the left adnexa. There is also evidence of a 2.2 cm x 1.8 cm cystic structure in the cul-de-sac. Pelvic sonographic correlation is recommended. Normal abdominal wall. Normal osseous structures. CT/Abdomen/Pelvis WITH Contrast IMPRESSION: Findings suggestive of varices in the region of the splenic hilum. Cystic structures seen in the cul-de-sac and in the left ovary. Correlation with ultrasound is recommended. Electronically Signed: Ry Lee MD at 9:51 EST ,
== END | disposition home or self-care (01) ==
LOC: CT 13:51
PROVIDERS: PCP Family Medicine
DX: R10.9 Unspecified abdominal pain (principal)
CPT/HCPCS: 74177; Q9967

== ENCOUNTER → 2024-10-08 | Outpatient (CLI) | payer BC, SELFPAY | END | disposition home or self-care (01) | PROVIDERS: PCP Family Medicine; Referring Provider Obstetrics & Gynecology; Visit Provider Obstetrics & Gynecology | DX: N83.202 Unspecified ovarian cyst, left side (principal); N85.8 Other specified noninflammatory disorders of uterus | CPT/HCPCS: 76830; 76856 ==

== ENCOUNTER → 2024-11-25 | Outpatient (CLI) | payer BC, SELFPAY ==
--- NOTE | 2024-11-25 14:20 | US_ITS ---
STUDY: ULTRASOUND OF THE FEMALE PELVIS - COMPLETE REASON FOR EXAM: Female, 44 years old. left ovarian cyst LMP: Status post hysterectomy. TECHNIQUE: Transabdominal and Transvaginal TECHNICAL QUALITY: Adequate. COMPARISON: 10/08/2024 FINDINGS: Status post hysterectomy. The right ovary is visualized. The right ovary measures 4.1 x 3.8 x 2.8 cm. And 3.9 cm oval anechoic mass with a single thin septation in the right ovary consistent with a corpus luteum cyst. There is no visualized right adnexal mass or complex lesion. There is normal arterial and normal venous vascularity. The left ovary is visualized. The left ovary measures 4.5 x 4.1 x 3.4 cm. There is no left ovarian cyst or ovarian mass. There is no visualized left adnexal mass or complex lesion. There is normal arterial and normal venous vascularity. There is no fluid in the cul-de-sac. The pre void volume of the bladder was ml. The post void volume of the bladder was ml. Polycystic ovary disease: No. US/Pelvic w/ Transvaginal IMPRESSION: 3.9 cm right ovarian corpus luteum cyst. Electronically Signed: Huey Camejo MD at 13:27 EST ,
== END | disposition home or self-care (01) ==
LOC: US 14:19
PROVIDERS: PCP Family Medicine; Referring Provider Obstetrics & Gynecology; Visit Provider Obstetrics & Gynecology
DX: N83.202 Unspecified ovarian cyst, left side (principal)
CPT/HCPCS: 76830; 76856

== ENCOUNTER → 2024-12-31 | Outpatient (CLI) | payer BC, SELFPAY ==
--- NOTE | 2024-12-31 13:52 | VDLE_ITS ---
Reason For Study: LLE Pain RIGHT LEFT CFV is compressible, spontaneous, phasic, CFV is compressible, phasic, and INCOMPETENT competent and demonstrates normal for greater than 1.0 second. augmentation. FV is compressible, spontaneous, phasic, Procedure competent and demonstrates normal This is a venous duplex using B-mode, color augmentation. flow and spectral Doppler. POP V is compressible, spontaneous, phasic, Exam performed in department. competent and demonstrates normal The exam was diagnostic. augmentation. T/P Trunk is compressible. PTV is compressible. LT PerV is compressible. SFJ is INCOMPETENT and measures 0.79 cm. GSV proximal thigh measures 0.43 x 0.47 cm. GSV at knee measures 0.45 x 0.47 cm. GSV INCOMPETENT throughout for greater than 0.5 seconds. ASV proximal thigh is INCOMPETENT for greater than 0.5 seconds and measures 0.28 x 0.30 cm. ASV proximal calf is INCOMPETENT for greater than 0.5 seconds and measures 0.90 x 0.98 cm. SSV at junction is competent and measures 0.40 cm. SSV mid calf is competent and measures 0.26 x 0.24 cm. Perforating Vessel prox calf is INCOMPETENT for greater than 0.5 seconds and measures 0.23 cm. VL/Venous Duplex US, Unilateral Interpretation Summary Deep veins of the left lower extremity are patent and compressible segmentally. There is no evidence of left lower extremity deep vein thrombosis. The left great saphenous vein paulina ears patent and compressible segmentally. Positive for reflux in the left common femoral vein, saphenofemoral junction, g reat saphenous vein throughout, accessory saphenous veins in the thigh and calf, occupational health rn in prox imal calf Ordering Physician: Cindi Trammell Referring Physician: Jose Luis Donnelly Performed By: Chucky Banuelos RVT
== END | disposition home or self-care (01) ==
LOC: CVS 13:51
PROVIDERS: PCP Family Medicine; Referring Provider Physician Assistant; Visit Provider Physician Assistant
DX: I83.892 Varicose veins of left lower extremity with other complications (principal)
CPT/HCPCS: 93971

== ENCOUNTER → 2025-02-03 | Outpatient (CLI) | payer BC, SELFPAY ==
--- NOTE | 2025-02-03 12:45 | BI_ITS ---
PROCEDURE: SCRN MAMM (CAD)W/ERNESTINA BILAT REASON FOR EXAM: F, Age 44 y/o, presents for annual screening mammogram. Family history of breast cancer in a maternal aunt in her 50s. TECHNIQUE: Bilateral screening digital breast tomosynthesis with 2D and 3D images. Computer aided detection. COMPARISON: 01/09/2024, 12/27/2022 FINDINGS: The breasts are heterogeneously dense which may obscure small masses. The mammogram demonstrates that the patient has dense breasts. Supplemental screening with whole breast ultrasound or MRI may be considered for further evaluation. No suspicious masses, areas of developing architectural distortion, or suspicious calcifications. BI/SCRN MAMM (CAD)W/ERNESTINA BILAT IMPRESSION: There is no mammographic evidence of malignancy. BI-RADS 1: NEGATIVE. RECOMMEND ANNUAL MAMMOGRAPHIC SCREENING. Follow-up code: Routine Follow-up. The patient will be notified of the results by letter. Reading Location: [id number]
== END | disposition home or self-care (01) ==
LOC: OPBI 12:46
PROVIDERS: PCP Family Medicine; Referring Provider Obstetrics & Gynecology; Visit Provider Obstetrics & Gynecology
DX: Z12.31 Encounter for screening mammogram for malignant neoplasm of breast (principal)
CPT/HCPCS: 77063; 77067

== ENCOUNTER → 2025-06-19 | Outpatient (CLI) | payer BC, SELFPAY ==
[2025-06-19 12:38] LABS: Hematocrit 48.9 % (37-47); Hemoglobin 15.9 g/dL (12.0-15.0); Immature Granulocytes Count 0.050 X10^3/uL (0.0-0.0); Mean Corp Hgb Conc 32.5 g/dL (32-36); Mean Corpuscular Volume 91.4 fL (81-99); Mean Platelet Vol. 11.6 fl (6.2-12.0); NRBC Flagged by Analyzer 0 % (0-5); Platelet Count 226 K/mm3 (150-450); RBC Distribution Width CV 12.2 % (11.6-14.6); RBC Distribution Width SD 41.1 fl (35.1-43.9); Red Blood Count 5.35 M/mm3 (4.2-5.4); White Blood Count 9.3 K/mm3 (4.4-11.0)
[2025-06-19 13:08] LABS: Cholesterol 223 mg/dL (<=200); Low Density Lipoprotein Calc. 134 mg/dL; Triglycerides 149 mg/dL; Very Low Density Lipoprotein 30 mg/dL (5-40); cholesterol:hdl ratio screen 3.74
[2025-06-19 13:26] LABS: AST(SGOT) 22 U/L (<=31); Alanine Aminotransfer ALT/SGPT 25 U/L (<=34); Albumin, Serum 4.5 g/dL (3.5-5.0); Alkaline Phosphatase 83 U/L (35-104); Anion Gap 11 (5-15); BUN 13 mg/dL (4-19); BUN/Creat Ratio 13.6 RATIO (10-20); Calcium,Total 9.9 mg/dL (7.6-11.0); Carbon Dioxide 22.4 mmol/L (21.0-32.0); Chloride 105 mmol/L (98-108); Globulin 2.8 g/dL (2.2-4.2); Glucose 95 mg/dL (70-99); Potassium 4.3 mmol/L (3.3-5.1); Vitamin B12 636 pg/mL (180-914); Vitamin D,25 Hydroxy 48.5 ng/mL (30-100)
== END | disposition home or self-care (01) ==
LOC: BFHLAB 08:55
PROVIDERS: PCP Family Medicine; Visit Provider Family Medicine
DX: Z00.00 Encounter for general adult medical examination without abnormal findings (principal); R53.83 Other fatigue
CPT/HCPCS: 36415; 80053; 80061; 82306; 82607; 84443; 85025

== ENCOUNTER → 2025-06-27 | Outpatient (CLI) | payer BC, SELFPAY ==
--- NOTE | 2025-06-27 15:49 | US_ITS ---
PROCEDURE: KIDNEY AND BLADDER 06/27/2025 REASON FOR EXAM: L BACK PAIN TECHNIQUE: KIDNEY AND BLADDER COMPARISON: CT 10/01/2024 FINDINGS: The right kidney measures 11 x 5 x 5 cm, normal echotexture. No hydronephrosis stones or masses. Left kidney measures 11 x 5 x 5 cm, normal echotexture. No hydronephrosis, stones or masses. Bladder is mildly distended. Bilateral jets are present. No definite wall thickening. US/Kidney and Bladder IMPRESSION: No acute findings Reading Location: [place] [id number]
== END | disposition home or self-care (01) ==
LOC: US 15:47
PROVIDERS: PCP Family Medicine; Referring Provider Family Medicine; Visit Provider Family Medicine
DX: R10.9 Unspecified abdominal pain (principal)
CPT/HCPCS: 76770

== ENCOUNTER → 2025-09-11 | Outpatient (CLI) | payer BC, SELFPAY ==
--- OUTSIDE RECORDS SUMMARY | 2025-09-11 13:46 | XMS RPT_ITS | CCD ---
Author Organization [facility] Care Team Providers Care Personal Fitness Trainer Name Role Phone Sánchez Lopez MD Primary Care Provider Dr. Sánchez Lopez Primary Care Provider Dr. Sánchez Lopez Referring Provider CHEYENNE Garduno Attending Provider [phone] Eladia Trujillo Attending Provider Unavailable CHEYENNE Dumont Attending Provider [phone] Elisabeth Mcneill Attending Provider Unavailable Dr. Abdoulaye Magana Attending Provider [phone] Sánchez Lopez Primary Care Provider Dr. Sánchez Lopez Referring Provider Dr. Fortino Maier Attending Provider Dr. Sánchez Lopez Primary Care Provider Dr. Sánchez Lopez Referring Provider CHEYENNE Dumont Attending Provider [phone] Elisabeth Mcneill Attending Provider Unavailable Dr. Abdoulaye Magana Attending Provider Dr. Fortino Maier Attending Provider Laurence Miller Attending Provider Unavailable Dr. Erica Ulloa Attending Provider Dr. Sánchez Lopez Primary Care Provider Dr. Sánchez Lopez Referring Provider Dr. Abdoulaye Magana Referring Provider Dr. Sánchez Lopez Primary Care Provider Dr. Abdoulaye Magana Attending Provider Dr. Sánchez Lopez Referring Provider Dr. Fortino Maier Attending Provider Dr. Jose Luis Donnelly Primary Care Provider [phone] Dr. Jose Luis Donnelly Primary Care Provider Dr. Jose Luis Donnelly Referring Provider Anuj SUPERVISOR FIREWORKS ASSEMBLY, SUPERVISOR FIREWORKS ASSEMBLYBishopC Kaylen Attending Provider Dr. Skyler Young Attending Provider [phone] Dr. Jose Luis Donnelly Primary Care Provider [phone] Dr. Jose Luis Donnelly Referring Provider Dr. Skyler Young Attending Provider [phone] Dr. Erica Ulloa Attending Provider [phone] Dr. Jose Luis Donnelly Primary Care Provider [phone] Dr. Jose Luis Donnelly Referring Provider Dr. Skyler Young Attending Provider [phone] Dr. Erica Ulloa Attending Provider [phone] Dr. Skyler Young Other Provider Dr. Jose Luis Donnelly DO Primary Care Provider Dr. Erica Ulloa DO Attending Provider Dr. Erica Ulloa DO Referring Provider Cindi San Attending Provider [phone] Skyler Young DO Referring Provider Cindi San Referring Provider [phone] Luis Gutierrez MD Attending Provider [phone] Dr. Jose Luis Donnelly DO Referring Provider [phone] Skyler Young DO Attending Provider Dr. Jose Luis Donnelly DO Primary Care Provider Rishi LUCIANO, Dr. Donis Attending Provider Cony GENTILE, Dr. Amaya Attending Provider Cony GENTILE, Dr. Amaya Referring Provider Rishi LUCIANO, Dr. Donis Attending Provider Friend DO, Dr. Holland Attending Provider Cony, Jose Luis Primary Care Unavailable Vande Velde, Erica Referring Unavailabl e Vande Velde, Erica Attending Unavailabl e Cony, Jose Luis Attending Unavailable Cony, Jose Luis Primary Care Unavailable Cony, Jose Luis Primary Care Unavailable Cony, Jose Luis Referring Unavailable Cony, Jose Luis Attending Unavailable Cony, Jose Luis Primary Care Unavailable Cony, Jose Luis Referring Unavailable Cony, Jose Luis Attending Unavailable Johnathan, Shante Referring Unavailable John Almanza Attending Unavailable Cony, Jose Luis Primary Care Unavailable Trammell, Cindi Referring Unavailable Luis Gutierrez Attending Unavailable Cony, Jose Luis Primary Care Unavailable Cony, Jose Luis Referring Unavailable Vande Velde, Erica Attending Unavailabl e Cony, Jose Luis Primary Care Unavailable Cony, Jose Luis Referring Unavailable FriendSkyler Attending Unavailable Cony, Jose Luis Primary Care Unavailable Cony, Jose Luis Referring Unavailable Vande Velde, Erica Attending Unavailabl e Cony, Jose Luis Primary Care Unavailable Cony, Jose Luis Referring Unavailable Skyler Young Attending Unavailable Cony, Jose Luis Primary Care Unavailable Mann, Shante Referring Unavailable Shante Mann Attending Unavailable Cony, Jose Luis Primary Care Unavailable Skyler Young Referring Unavailable TrammellCindi guzman Attending Unavailable Cony, Jose Luis Primary Care Unavailable Vande Velde, Erica Attending Unavailabl e Vande Velde, Erica Referring Unavailabl e Cony, Jose Luis Primary Care Unavailable Vande Velde, Erica Referring Unavailabl e Vande Velde, Erica Attending Unavailabl e Cony, Jose Luis Primary Care Unavailable Trammell, Cindi Referring Unavailable Trammell, Cindi Attending Unavailable Allergies Allergy Classification Reported Allergen(s) Allergy Type Date of Onset Reaction(s) Facility (16 sources) levoFLOXacin Drug Allergy 03-11-2021 Rash [facility] (1 source) levoFLOXacin Drug Allergy 01-29-2025 [facility] Repository Medications Current Medications Medication Drug Class(es) Dates Sig (Normalized) Sig (Original) aspirin 81 mg delayed release oral tablet (9 sources) Platelet Aggregation Inhibitor, Nonsteroidal Anti-inflammatory Drug Start: 01-04-2023 take 1 tablet by mouth once daily Aspirin (Adult Aspirin Regimen) 81 mg tablet,delayed release (DR/EC) Active 81 mg PO DAILY January 04, 2023 1:00am initiated by PCP cholecalciferol 0.05 mg oral tablet (20 sources) Vitamin D Start: 07-26-2022 take 1 tablet by mouth once daily Cholecalciferol (Vitamin D3) 50 mcg (2,000 unit) tablet Active 50 ug PO DAILY July 26, 2022 12:00am Start: 03-11-2021 [facility] 1 capsule [facility] daily Cholecalciferol, Vitamin D3, 25 mcg (1,000 unit) cap Take 1 capsule by mouth once daily. 0 03/11/2021 Active Start: 03-11-2021 End: 07-26-2022 take 1 capsule by mouth once daily Cholecalciferol (Vitamin D3) 25 mcg (1,000 unit) capsule Discontinued 25 ug PO DAILY March 11, 2021 12:00am July 26, 2022 11:42am Comment on above: Take 1 [facility] daily. hyoscyamine sulfate 0.125 mg oral tablet (4 sources) Start: 10-17-2024 Hyoscyamine Sulfate 0.125 mg tablet Active 0.125 mg PO 2 to 4 times per day as needed for dyspepsia 26 12October 17, 2024 1:00am Multivitamin 1 TABLET tablet (4 sources) Start: 01-01-2015 Multivitamin 1 TABLET tablet Active 1 {tbl} PO DAILY January 01, 2015 1:00am Multivitamin preparation (10 sources) Start: 01-01-2015 take 1 tablet by mouth once daily Multivitamin Active 1 TABLET PO DAILY January 01, 2015 12:00am Start: 01-01-2015 [facility] Mult[facility]amin Active 1 TABLET PO DAILY January 01, 2015 1:00am rizatriptan 10 mg oral tablet (20 sources) Serotonin-1b and Serotonin-1d Receptor Agonist Start: 08-16-2022 End: 01-03-2023 take 3 tablets by mouth once daily as needed Rizatriptan 10 mg tablet Active 10 mg PO .COMPLEX 9 9 January 03, 2023 9:19am 10 mg PO every two hours as needed for headache up to three tablets per day Start: 12-22-2020 End: 08-16-2022 take 1 tablet by mouth every two hours as needed for headache, then take 3 tablets by mouth once daily as needed for headache Rizatriptan 10 mg tablet Discontinued 0 PO .COMPLEX 9 5 December 14, 2021 9:32am August 16, 2022 1:10pm take 1 tab every two hours up to three tablets daily as needed for headache Comment on above: TAKE 1 TABLET BY GUS TH EVERY 2 HOURS UP TO 3 TABLETS DAILY NEEDED FOR HEADACHE tiZANidine 2 mg oral tablet (1 source) Central alpha-2 Adrenergic Agonist Start: 0 End: take 1 tablet by mouth every eight hours as needed, then take 3 tablets by mouth every twenty-four hours as needed tiZANidine (ZANAFLEX) 2 mg tablet TAKE 1 TABLET BY MOUTH EVERY 8 HOURS NEEDED NO MORE THAN 3 DOSES IN 24 HOURS 0 04/16/2020 04/18/2022 Discontinued Comment on above: TAKE 1 TABLET BY GUS TH EVERY 8 HOURS NEEDED NO MORE THAN 3 DOSES IN 24 HOURS topiramate 25 mg oral tablet (20 sources) Start: End: take 1 tablet by mouth twice daily Topiramate 25 mg tablet Active 25 mg PO TWICE A DAY 60 January 03, 2023 9:19am Start: 12-14-2021 End: 08-16-2022 take 1 tablet by mouth once daily Topiramate 25 mg tablet Discontinued 0 .ROUTE .COMPLEX 30 2 July 19, 2022 5:28pm August 16, 2022 1:10pm TAKE 1 TABLET BY MOUTH EVERY DAY Start: 01-28-2021 End: 12-14-2021 take 1 tablet by mouth twice daily Topiramate 25 mg tablet Discontinued 25 mg PO TWICE A DAY 60 2 August 24, 2021 8:41am December 14, 2021 9:34am Start: 12-22-2020 End: 01-28-2021 take 1 tablet by mouth once daily, then take 1 tablet by mouth twice daily Topiramate 25 mg tablet Discontinued 25 mg PO .COMPLEX 60 1 December 22, 2020 1:00am January 28, 2021 10:59am 25 mg PO daily for two weeks then 25mg BID thereafter Start: 10-20-2020 End: 12-22-2020 take 1 tablet by mouth twice daily Topiramate 50 mg tablet Discontinued 50 mg PO TWICE A DAY 60 2 October 20, 2020 1:00am December 22, 2020 4:08pm begin after completing topiramate 25mg BID for one week Start: 10-20-2020 End: 10-27-2020 take 1 tablet by mouth twice daily Topiramate 25 mg tablet Discontinued 25 mg PO TWICE A DAY 14 7 0 October 20, 2020 1:00am October 26, 2020 1:00am October 27, 2020 1:02am Comment on above: Take 25 mg by mouth once daily. Completed/Discontinued Medications Medication Drug Class(es) Dates Sig (Normalized) Sig (Original) acetaminophen 325 mg / oxyCODONE hydrochloride 5 mg oral tablet (14 sources) Opioid Agonist Start: 01-09-2015 End: 10-19-2020 Oxycodone-Acetamino phen 1 TABLET tablet Discontinued 1 - 2 {tbl} PO EVERY 4 HOURS NEEDED as needed for Moderate-Severe pain 30 0 January 09, 2015 1:00am October 19, 2020 10:52am Start: 01-09-2015 End: 10-19-2020 take 1 tablet by mouth every four hours as needed Oxycodone-Acetaminophen Discontinued 1 - 2 TABLET PO EVERY 4 HOURS NEEDED January 09, 2015 1:00am October 19, 2020 10:52am amoxicillin 875 mg / clavulanate 125 mg oral tablet (20 sources) Penicillin-class Antibacterial Start: 01-03-2023 End: 01-13-2023 Amoxicillin-Pot Clavulanate 875-125 mg tablet Discontinued 1 {tbl} PO TWICE A DAY 20 10 0 January 03, 2023 1:00am January 12, 2023 1:00am January 13, 2023 1:05am Start: 01-03-2023 End: 01-13-2023 take 1 tablet by mouth twice daily Amoxicillin-Pot Clavulanate Discontinued 1 TABLET PO TWICE A DAY 20 10 January 03, 2023 1:00am January 13, 2023 1:05am Start: 07-04-2022 End: 07-14-2022 Amoxicillin-Pot Clavulanate 875-125 mg tablet Discontinued 1 {tbl} PO Q12H 20 10 0 July 04, 2022 12:00am July 13, 2022 12:00am July 14, 2022 12:03am Acute sinusitis, unspecified Start: 07-04-2022 End: 07-14-2022 take 1 tablet by mouth every twelve hours Amoxicillin-Pot Clavulanate Discontinued 1 TABLET PO Q12H 20 10 July 04, 2022 12:00am July 14, 2022 12:03am bacillus coagulans [id number] unt chewable tablet (14 sources) Start: 08-05-2022 End: 03-27-2024 Bacillus Coagulans (Digestive Advantage Prob Gummy) 250 million cell tablet,chewable Discontinued NMA PO DAILY August 05, 2022 12:00am March 27, 2024 1:56pm baclofen 10 mg oral tablet (20 sources) gamma-Aminobuty mckenna Acid-ergic Agonist Start: 08-16-2022 End: 03-27-2024 take 1 tablet by mouth three times daily as needed for pain Baclofen 10 mg tablet Discontinued 10 mg PO THREE TIMES A DAY as needed for Muscle pain/spasm 90 5 August 16, 2022 12:00am March 27, 2024 1:56pm Start: 03-11-2021 take 1 tablet by gus th every eight hours as needed baclofen (LIORESAL) 10 mg tablet Take 10 mg by mouth every 8 hours as needed. 0 03/11/2021 Active Start: 03-11-2021 End: 06-08-2022 take 5-10 mg by mouth three times daily as needed for pain Baclofen 10 mg tablet Discontinued 5 - 10 mg PO THREE TIMES A DAY as needed for neck pain 90 March 11, 2021 12:00am June 08, 2022 11:08am Comment on above: Take 10 mg by mouth every 8 hours as needed. cefuroxime 250 mg oral tablet (14 sources) Cephalosporin Antibacterial Start: 02-02-20 End: 02-23-20 take 1 tablet by mouth every twelve hours Cefuroxime Axetil 250 mg tablet Discontinued 250 mg PO Q12H 42 21 0 February 01, 2021 1:00am February 21, 2021 12:00am February 22, 2021 12:02am cetirizine hydrochloride 10 mg oral tablet (20 sources) Histamine-1 Receptor Antagonist Start: 08-16-20 End: 03-27-20 take 1 tablet by mouth once daily as needed Cetirizine 10 mg tablet Discontinued 10 mg PO DAILY as needed for sinusitis/disequilib rium/allergy symptoms 30 January 03, 2023 1:00am March 27, 2024 1:56pm citalopram 10 mg oral tablet (4 sources) Serotonin Reuptake Inhibitor Start: 11-26-20 End: 07-21-20 take 1 tablet by mouth once daily Citalopram 10 mg tablet Discontinued 10 mg PO daily November 26, 2024 1:00am July 21, 2025 1:35pm dexamethasone 6 mg oral tablet (14 sources) Corticosteroid Start: 04-20-20 End: 07-26-20 take 1 tablet by mouth once daily Dexamethasone (Decadron) 6 mg tablet Discontinued 6 mg PO DAILY April 20, 2022 12:00am July 26, 2022 11:42am diclofenac potassium 50 mg oral tablet (20 sources) Nonsteroidal Anti-inflammatory Drug Start: 08-16-20 End: 03-27-20 take 1 tablet by mouth three times daily as needed for pain Diclofenac Potassium 50 mg tablet Discontinued 50 mg PO THREE TIMES A DAY as needed for pain 90 August 16, 2022 12:00am March 27, 2024 1:56pm Start: 03-11-2021 End: 06-08-2022 take 1 tablet by mouth three times daily as needed for pain Diclofenac Potassium 50 mg tablet Discontinued 50 mg PO THREE TIMES A DAY as needed for pain 90 March 11, 2021 12:00am June 08, 2022 11:09am dicyclomine hydrochloride 20 mg oral tablet (20 sources) Anticholinergic Start: 06-29-2023 End: 06-29-2023 take 2 capsules by mouth three times daily Dicyclomine 10 mg capsule Discontinued 20 mg PO THREE TIMES A DAY 60 5 June 29, 2023 4:03pm June 29, 2023 4:09pm Start: 06-29-2023 End: 06-29-2023 take 20 mg by mouth three times daily Dicyclomine Discontinued 20 MG PO THREE TIMES A DAY 60 June 29, 2023 4:03pm June 29, 2023 4:09pm Start: 06-29-2023 End: 08-27-2024 take 1 tablet by mouth three times daily as needed for pain Dicyclomine 20 mg tablet Discontinued 20 mg PO THREE TIMES A DAY as needed for abdominal pain 45 February 07, 2024 10:29am August 27, 2024 3:05pm Start: 06-23-2023 End: 06-29-2023 take 1 capsule by mouth three times daily Dicyclomine 10 mg capsule Discontinued 10 mg PO THREE TIMES A DAY 90 June 23, 2023 12:00am June 23, 2023 8:34am docusate sodium 100 mg oral capsule (14 sources) Start: 01-09-2015 End: 10-19-2020 take 1 capsule by mouth twice daily Docusate Sodium 100 MG capsule Discontinued 100 mg PO TWICE A DAY 30 January 09, 2015 1:00am October 19, 2020 10:52am constipation folic acid 1 mg oral tablet (8 sources) Start: 04-03-2024 End: 01-20-2025 take 1 tablet by mouth once daily Folic Acid 1 mg tablet Discontinued 1 mg PO DAILY 30 2 June 26, 2024 2:22pm January 20, 2025 2:38pm Home Traction Unit (20 sources) Start: 05-17-2021 End: 05-17-2021 Home Traction Unit Discontinued 0 .Route .MEDSUPPLY 1 0 May 17, 2021 12:00am May 17, 2021 4:35pm neck pain Use as directed Start: 05-17-2021 End: 06-08-2022 Home Traction Unit Discontin ued 0 .Route .MEDSUPPLY 1 0 May 17, 2021 12:00am June 08, 2022 11:09am Chronic neck pain Cervicalgia Other chronic pain neck pain Use as directed Start: 05-17-2021 End: 05-17-2021 Home Traction Unit Discontin ued 0 .Route .MEDSUPPLY 1 May 16, 2021 11:00pm May 17, 2021 3:35pm Use as directed Start: 05-17-2021 End: 06-08-2022 Home Traction Unit Discontin ued 0 .Route .MEDSUPPLY 1 May 16, 2021 11:00pm June 08, 2022 10:09am Use as directed Start: 05-17-2021 End: 05-17-2021 Home Traction Unit Discontin ued 0 .Route .MEDSUPPLY 1 May 17, 2021 12:00am May 17, 2021 4:35pm Use as directed Start: 05-17-2021 End: 06-08-2022 Home Traction Unit Discontin ued 0 .Route .MEDSUPPLY May 17, 2021 12:00am June 08, 2022 11:09am Use as directed ibuprofen 800 mg oral tablet (20 sources) Nonsteroidal Anti-inflammatory Drug Start: 09-29-2022 End: 10-06-2022 take 1 tablet by mouth every eight hours as needed for pain Ibuprofen 800 mg tablet Discontinued 800 mg PO Q8H as needed for pain 7 September 29, 2022 12:00am October 05, 2022 1:00am October 06, 2022 1:04am Start: 01-09-2015 End: 10-19-2020 take 2 tablets by mouth every eight hours Ibuprofen 400 MG tablet Discontinued 800 mg PO Q8H 40 0 January 09, 2015 1:00am October 19, 2020 10:52am pain Start: 01-09-2015 End: 10-19-2020 take 800 mg by mouth every eight hours Ibuprofen Discontinued 800 MG PO Q8H 40 January 09, 2015 1:00am October 19, 2020 10:52am Lactobacillus acidophilus (2 sources) Lactobacillus acidophilus (PROBIOTIC ORAL) Take 2 tablets by mouth. 2 gummies 500 mil CFU 0 Active Comment on above: Take 2 tablets by mo [facility]. 2 gummies 500 mil CFU levoFLOXacin 750 mg oral tablet (14 sources) Quinolone Antimicrobial Start: 01-29-20 End: 02-02-20 take 1 tablet by mouth once daily Levofloxacin 750 mg tablet Discontinued 750 mg PO DAILY January 28, 2021 1:00am February 17, 2021 12:00am February 01, 2021 11:05am linaclotide 0.145 mg oral capsule (8 sources) Guanylate Cyclase-C Agonist Start: 06-05-20 End: 12-11-19 24 take 1 capsule by mouth once daily Linaclotide (Linzess) 145 mcg capsule Discontinued 145 ug PO DAILY 30 June 05, 2023 12:00am December 11, 2023 11:28am loratadine 10 mg oral tablet (20 sources) Start: 08-16-20 End: 01-03-20 take 1 tablet by mouth once daily as needed Loratadine (Claritin) 10 mg tablet Discontinued 10 mg PO DAILY as needed August 16, 2022 12:00am January 03, 2023 9:20am Start: 10-19-2020 End: 06-14-2022 take 1 tablet by mouth once daily Loratadine 10 mg tablet Discontinued 10 mg PO DAILY 30 December 22, 2020 4:46pm January 28, 2021 10:59am Comment on above: Take 10 mg by mouth once daily. meclizine hydrochloride 25 mg oral tablet (15 sources) Antiemetic Start: End: take 1 tablet by mouth three times daily as needed for dizziness Meclizine 25 mg tablet Discontinued 25 mg PO THREE TIMES A DAY as needed for dizziness 90 2 October 20, 2020 1:00am December 22, 2020 7:29pm Comment on above: TAKE 1 TABLET BY GUS TH THREE TIMES A DAY NEEDED FOR DIZZINESS metroNIDAZOLE 500 mg oral tablet (8 sources) Nitroimidazole Antimicrobial Start: End: take 1 tablet by mouth twice daily Metronidazole 500 mg tablet Discontinued 500 mg PO TWICE A DAY 14 7 0 May 31, 2023 12:00am June 06, 2023 12:00am June 07, 2023 12:04am Multi Collagen Plus type 1,2,3,5,10 (14 sources) Start: End: Multi Collagen Plus type 1,2,3,5,10 Discontinued 3 NMA PO DAILY 0 October 19, 2020 1:00am June 08, 2022 11:09am Start: 10-19-2020 End: 06-08-2022 Multi Collagen Plus type 1,2 ,3,5,10 Discontinued 3 NMA PO DAILY October 19, 2020 1:00am June 08, 2022 11:09am Start: 10-19-2020 End: 06-08-2022 Multi Collagen Plus type 1,2 ,3,5,10 Discontinued 3 CAP PO DAILY October 19, 2020 12:00am June 08, 2022 10:09am Start: 10-19-2020 End: 06-08-2022 Multi Collagen Plus type 1,2 ,3,5,10 Discontinued 3 CAP PO DAILY October 19, 2020 1:00am June 08, 2022 11:09am MULTI-VITAMIN ORAL (3 sources) MULTI-VITAMIN OR AL Take by mouth. 0 Active Comment on above: Take by mouth. omeprazole 20 mg delayed release oral capsule (20 sources) Proton Pump Inhibitor Start: 2 End: 3 take 1 capsule by mouth once daily as needed Omeprazole 20 mg capsule,delayed release(DR/EC) Discontinued 20 mg PO DAILY as needed August 05, 2022 12:00am January 03, 2023 9:06am Start: 12-14-2021 End: 08-05-2022 take 1 capsule by mouth once daily Omeprazole 40 mg capsule,delayed release(DR/EC) Discontinued 40 mg PO DAILY July 26, 2022 11:41am August 05, 2022 1:32pm Acid Reflux Comment on above: Take 40 mg by mouth once daily as needed. PARoxetine hydrochloride 40 mg oral tablet (14 sources) Serotonin Reuptake Inhibitor Start: End: take 1 tablet by mouth once daily Paroxetine Hcl 40 MG tablet Discontinued 40 mg PO DAILY January 01, 2015 1:00am October 19, 2020 10:52am sulfaSALAzine 500 mg oral tablet (8 sources) Aminosalicylate Start: End: take 1 tablet by mouth twice daily at mealtime Sulfasalazine 500 mg tablet Discontinued 0.5 g PO TWICE A DAY 60 2 June 26, 2024 2:21pm November 26, 2024 9:40am give with food (meal/snack) SUMAtriptan 50 mg oral tablet (15 sources) Serotonin-1b and Serotonin-1d Receptor Agonist Start: End: take 2 tablets by mouth once daily as needed Sumatriptan Succinate 50 mg tablet Discontinued 50 mg PO .COMPLEX 9 2 October 20, 2020 1:00am December 22, 2020 4:48pm 50 mg PO every two hours as needed for headache up to two tablets per day Start: 03-25-2020 End: 04-18-2022 take 1 tablet by mouth every two hours, then take 2 tablets by mouth every twenty-four hours SUMAtriptan (IMITREX) 50 mg tablet TAKE 1 TABLET BY ORAL ROUTE EVERY 2 HOURS NO MORE THAN 2 IN 24 HOURS. 0 03/25/2020 04/18/2022 Discontinued Comment on above: TAKE 1 TABLET BY ORA L ROUTE EVERY 2 HOURS NO MORE THAN 2 IN 24 HOURS. Problems Active Problems Problem Classification Problem Date Documented Da te Episodic/Chronic Abdominal pain (12 sources) Abdominal pain; Translations: [Unspecified abdominal pain] Onset: 07-07-2025 12-11-2023 Episodic Cardiac dysrhythmias (20 sources) Palpitations; Translations: [Palpitations] 06-08-2022 Episodic Conditions associated with dizziness or vertigo (20 sources) Lightheadedness; Translations: [Dizziness and giddiness] Episodic Essential hypertension (13 sources) Elevated blood pressure; Translations: [Essential (primary) hypertension] 08-23-2022 Chronic Headache; including migraine (18 sources) Migraine; Translations: [Migraine, unspecified, not intractable, without status migrainosus] Chronic Malaise and fatigue (14 sources) Fatigue; Translations: [Other fatigue] 05-11-2021 Episodic Nonspecific chest pain (18 sources) Chest pain; Translations: [Chest pain, unspecified] Episodic Other female genital disorders (1 source) Other specified noninflammatory disorders of vagina; Translations: [Leukorrhea, not specified as infective] 05-31-2023 Episodic Other gastrointestinal disorders (9 sources) Chronic constipation; Translations: [Other constipation] 06-02-2023 Episodic Other gastrointestinal disorders (4 sources) Other constipation; Translations: [Constipation, unspecified] 06-02-2023 Episodic Other hematologic conditions (8 sources) Erythrocytosis; Translations: [Secondary polycythemia] 12-11-2023 Episodic Comment on above: With normal erythrop oietin consistent with secondary polycythemia to consider workup for obstructive sleep apnea Other hematologic conditions (5 sources) Secondary polycythemia; 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 vera] Onset: 09-04-2024 12-11-2023 Episodic Other liver diseases (14 sources) Hyperbilirubinemia; Translations: [Unspecified jaundice] 03-11-2021 Episodic Other nutritional; endocrine; and metabolic disorders (14 sources) Obesity; Translations: [Obesity, unspecified] 08-05-2022 Chronic Other upper respiratory disease (14 sources) Congestion of nasal sinus; Translations: [Nasal congestion] 07-26-2022 Episodic Other upper respiratory infections (10 sources) Sinusitis; Translations: [Chronic sinusitis, unspecified] 01-03-2023 Chronic Other upper respiratory infections (15 sources) Sore throat symptom; Translations: [Acute pharyngitis, unspecified] Episodic Residual codes; unclassified (1 source) Hypersomnia, unspecified; Translations: [Hypersomnia, unspecified] Onset: 08-12-2025 Chronic Residual codes; unclassified (13 sources) Family history of coronary arteriosclerosis; Translations: [Family history of ischemic heart disease and other diseases of the circulatory system] 08-23-2022 Episodic Spondylosis; intervertebral disc disorders; other back problems (20 sources) Disorder of cervical spine; Translations: [Other specified dorsopathies, cervical region] Episodic Viral infection (15 sources) Disease caused by 2019-nCoV; Translations: [COVID-19] Episodic Past or Other Problems Problem Classification Problem Date Documented Date Episodic/Chronic Coagulation and hemorrhagic disorders (5 sources) Easy bruising; Translations: [Spontaneous ecchymoses] Onset: 09-04-2024 08-27-2024 Episodic Comment on above: Aspirin +/- constitu tional. Screening tests for coagulation disorders were negative. Immunizations and screening for infectious disease (19 sources) Contact with and (suspected) exposure to other viral communicable diseases; Translations: [Contact with or suspected exposure to other viral communicable disease] Onset: 09-04-2024 07-26-2022 Episodic Comment on above: Nonsignificant eleva tion of IgM, no history of premature atherosclerotic arterial disease or venous thrombo-embolic disease does not meet criteria for APS. Other screening for suspected conditions (not mental disorders or infectious disease) (20 sources) Decreased vitamin D; Translations: [Other specified abnormal findings of blood chemistry] Onset: 02-13-2025 05-11-2021 Episodic Ovarian cyst (20 sources) Cyst of ovary; Translations: [Unspecified ovarian cyst, left side] Onset: 12-19-2024 Episodic Comment on above: left 3cm, rpt US 6-8 weeks Varicose veins of lower extremity (20 sources) Venous varices; Translations: [Varicose veins of left lower extremity with other complications] Onset: 11-26-2024 Episodic Results Test Name Value Interpretation Reference Range Facility Gastroenterology Visit Repor ton 07-21-2025 Gastroenterology Visit Report [facility]astroenterology [address] [place] [address] OFFICE VISIT Date of Service: 07/21/25 MR#: [id number] Acct: [id number] Name: ELLE VICENTE Rep #: [id number] : 1980 Provider: Skyler Young DO Age/Sex: 45/F Location[place] [facility] [place] Status: Signed Intake Vital Signs 08/27/24 15:07 01/29/25 08:06 Height 5 ft 5 in 5 ft 5 in Intake Visit Reasons: 6 M FU Allergies levofloxacin (From Levaquin) Allergy (Severe, Verified 01/29/25 08:03) rash Medications ???Medication ???Instructions ???Recorded ???Confirmed ???Type multivitamin 1 tab PO DAILY 01/01/15 07/21/25 H istory cholecalciferol (vitamin D3) 50 50 mcg PO DAILY 07/26/22 07/21/25 History mcg (2,000 unit) tablet rizatriptan 10 mg tablet 10 mg PO .COMPLEX #9 tabs 01/03/23 07/21/25 Rx topiramate 25 mg tablet 25 mg PO BID #60 tabs 01/03/23 Rx aspirin 81 mg tablet,delayed 81 mg PO DAILY initiated by PCP 07/21/25 History release (Adult Aspirin Regimen) hyoscyamine sulfate 0.125 mg tablet 0.125 mg PO BID-QID PRN dyspeps ia 10/17/24 07/21/25 Rx #30 tabs PFSH Medical History Easy bruising Anticardiolipin antibody positive Polycythemia Wears contact lenses Wears glasses Post-menopausal Arthritis Back pain History of diverticulitis Gastric reflux History of Holter monitoring History of echocardiogram History of stress test Cardiology follow-up encounter Hypokalemia Depression Anxiety Aortic atherosclerosis Obesity Varicose veins of left leg with edema Ocular migraine Mixed anxiety and depressive disorder Contact with or suspected exposure to other viral communicable disease Acute sinusitis Sinus congestion History of COVID-19 (04/20/22) COVID-19 Disequilibrium Chronic neck pain Other specified dorsopathies, cervical region Fatigue Low vitamin D level History of uterine fibroid Migraine headache Surgical History History of adenoidectomy History of partial hysterectomy Family History Mother Arthritis Heart disease Aunt Breast cancer Father Cancer Skin cancer Hypertension Hyperlipidemia Gilbert's disease Grandfather Cancer Skin cancer Gilbert's disease Grandmother Parkinson's disease Social History Smoking Status: Never smoker alcohol intake: former substance use type: does not use caffeine: No what type of physical activity do you participate in: walking and other details: 12,000 steps frequency: daily HPI HPI Details: ELLE VICENTE, is a 45 F who presents to the office today for follow up. PCP OV 11.29.22 with LUQ/rib pain and irregular bowel pattern with soft stools and unintended weight gain of 15-20lbs. Notes history of mouth bumps/sores; ENT instructed to gargle with salt water which was not helpful. Omeprazole attempted and ineffective. ? KUB 11.29.22 without acute/chronic abnormality. ? CT abd/pel 12.15.22 colonic diverticulosis. ? Biochemical . CBC, ESR, CMP, LDH, CRP, triglycerides, cholesterol, TSH, T4, BAN screen without pertinent abnormality. *BGI established 7.06.18 When apt made she was having severe LLQ pain, PCP seen and treated for diverticulitis and resolved with ATB therapy. This was the initial episode of diverticulitis. Since infection she has been having constipation with no BM for several days followed by several days of small harder stools with some mild abdominal discomfort and one day of frequent loose stools. Prior to infection she was having a normal BM each day. Notes some intermittent epigastric discomfort; does not have active reflux symptoms, is not on PPI. Start Linzess 145mcg. Contact 06.21.23 with concern for abdominal pain, feels it is related to Linzess use. Ok to stop Linzess. Start dicyclomine. ? KUB without acute/chronic finding. ? GET 8 57.93 minutes (12-56) Contact 07.04.23 with results; she is doing well with start of dicyclomine. OV 124 she was having LLQ discomfort in the last couple of weeks with history of ovarian cyst, gynecology recommended pain relief and hot compress which was effective. With use of dicyclomine BID she is having much improved frequency and intensity upper abdominal discomfort; upper abdominal discomfort approximately once a week and is self-resolving after hours to days. BM occur at least every other day, but occur daily with complete evacuation. OV 8.24 Pt presents (more content not included)... Normal [facility] Kidney and Bladderon 025 Kidney and Bladder [facility] Imaging Services [address] [place] [address] Kidney and Bladder MR#: [id number] Acct: [id number] Name: ELLE VICENTE Rep #: [id number] : 1980 F 44 From: Juanito Amador MD PCP: Dr. Jose Luis Donnelly, DO [facility] Date of Exam: 06/27/25 Exam# [id number] Ordering Dr: Jose Luis Donnelly DO PROCEDURE: KIDNEY AND BLADDER 06/27/2025 REASON FOR EXAM: L BACK PAIN TECHNIQUE: KIDNEY AND BLADDER COMPARISON: CT 10/01/2024 FINDINGS: The right kidney measures 11 x 5 x 5 cm, normal echotexture. No hydronephrosis stones or masses. Left kidney measures 11 x 5 x 5 cm, normal echotexture. No hydronephrosis, stones or masses. Bladder is mildly distended. Bilateral jets are present. No definite wall thickening. US/Kidney and Bladder IMPRESSION: No acute findings Reading Location: [place] [address] CC: Dr. Jose Luis Donnelly DO Industrial Paramedic: Signed Normal [facility] Absolute lymphocyte countOrd ered By: Jose Luis Donnelly on 06-19-2025 Lymphocytes Auto (Unsp spec) [#/Vol] 2.59 10*3/uL 0.83-4.51 [facility] Absolute neutrophil countOrd ered By: Jose Luis Donnelly on 06-19-2025 Neutrophils (Bld) [#/Vol] 6.1 10*3/uL 2.0-7.7 [facility] Anion gap in Serum or Plasma Ordered By: Jose Luis Donnelly on 06-19-2025 Anion gap [Moles/Vol] 11 mmol/L 5-15 [facility] Automated lymphocyte count a s percentage of total leukocytesOrdered By: Jose Luis Donnelly on 06-19-2025 Lymphocytes/100 WBC Auto (Unsp spec) 27.8 % 19-41 [facility] BUN/creatinine ratioOrdered By: Jose Luis Donnelly on 06-19-2025 Urea nitrogen/Creatinine [Mass ratio] 13.6 mg/mg 10-20 [facility] Comment on above: Previous reported re sult: 12.7 RATIOEdited by: JACOB on 06/19/25:1326 AMENDED REPORT 06/19/25 1326 BUN/CRE previously reported as: 12.7 RATIO Basophil percentageOrdered B y: Jose Luis Donnelly on 06-19-2025 Basophils/100 WBC (Bld) 0.4 % 0-1 [facility] Bilirubin, totalOrdered By: Jose Luis Donnelly on 06-19-2025 Bilirubin [Mass/Vol] 2.09 mg/dL High 0.00-1.30 [facility] Comment on above: Previous reported re sult: 2.02 mg/dLEdited by: JACOB on 06/19/25:1326 AMENDED REPORT 06/19/25 1326 T BILI previously reported as: 2.02 H mg/dL CBC W/Diff, Automatedon 05-28 Absolute Lymph 2.59 X10 3/uL Normal 0.83-4.51 [facility] Comment on above: Performed By: #### L 100.0100, L500.4050, L500.4100, L501.9520, L503.0106, L506.1001 #### [facility] Laboratory [address] [place], [address] Absolute Neut 6.1 X10 3/uL Normal 2.0-7.7 [facility] Comment on above: Performed By: #### L 100.0100, L500.4050, L500.4100, L501.9520, L503.0106, L506.1001 #### [facility] [address] [place], [address] Basophils/100 WBC (Bld) 0.4 % Normal 0-1 [facility] Comment on above: Performed By: #### L 100.0100, L500.4050, L500.4100, L501.9520, L503.0106, L506.1001 #### [facility] [address] [place], [address] Eosinophils/100 WBC (Bld) 1.0 % Normal 0-5 [facility] Comment on above: Performed By: #### L 100.0100, L500.4050, L500.4100, L501.9520, L503.0106, L506.1001 #### [facility] [address] [place], [address] Erythrocyte distribution width (RBC) [Ratio] 12.2 % Normal 11.6-14.6 [facility] Comment on above: Performed By: #### L 100.0100, L500.4050, L500.4100, L501.9520, L503.0106, L506.1001 #### [facility] [address] [place], [address] Hematocrit (Bld) [Volume fraction] 48.9 % High 37-47 [facility] Comment on above: Performed By: #### L 100.0100, L500.4050, L500.4100, L501.9520, L503.0106, L506.1001 #### [facility] [address] [place] [id number] Hemoglobin (Bld) [Mass/Vol] 15.9 g/dL High 12.0-15. 0 [facility] Comment on above: Performed By: #### L 100.0100, L500.4050, L500.4100, L501.9520, L503.0106, L506.1001 #### [facility] [address] [place], [address] IG% 0.500 Normal 0.0-0.9 [facility] Comment on above: Result Comment: IG% - Immature Granulocytes (promyelocytes, myelocytes and metamyelocytes) > 1% indicates that a LEFT SHIFT is Present. Performed By: #### L 100.0100, L500.4050, L500.4100, L501.9520, L503.0106, L506.1001 #### [facility] [address] [place], [address] Lymphocytes/100 WBC (Bld) 27.8 % Normal 19-41 [facility] Comment on above: Performed By: #### L 100.0100, L500.4050, L500.4100, L501.9520, L503.0106, L506.1001 #### [facility] [address] [place], [address] MCH (RBC) [Entitic mass] 29.7 pg Normal 27.0-32.0 [facility] Comment on above: Performed By: #### L 100.0100, L500.4050, L500.4100, L501.9520, L503.0106, L506.1001 #### [facility] [address] [place], [address] MCHC (RBC) [Mass/Vol] 32.5 g/dL Normal 32-36 [facility] Comment on above: Performed By: #### L 100.0100, L500.4050, L500.4100, L501.9520, L503.0106, L506.1001 #### [facility] [address] [place], [address] MCV (RBC) [Entitic vol] 91.4 fL Normal 81-99 [facility] Comment on above: Performed By: #### L 100.0100, L500.4050, L500.4100, L501.9520, L503.0106, L506.1001 #### [facility] [address] [place], [address] Monocytes/100 WBC (Bld) 4.7 % Normal 0-10 [facility] Comment on above: Performed By: #### L 100.0100, L500.4050, L500.4100, L501.9520, L503.0106, L506.1001 #### [facility] [address] [place], [address] Neutrophils/100 WBC (Bld) 65.6 % Normal 47-70 [facility] Comment on above: Performed By: #### L 100.0100, L500.4050, L500.4100, L501.9520, L503.0106, L506.1001 #### [facility] [address] [place], [address] Nucleated RBC (Bld) [#/Vol] 0 10*3/uL Normal 0-5 [facility] Comment on above: Performed By: #### L 100.0100, L500.4050, L500.4100, L501.9520, L503.0106, L506.1001 #### [facility] [address] [place], [address] Platelet mean volume (Bld) [Entitic vol] 11.6 fL Normal 6.2-12.0 [facility] Comment on above: Performed By: #### L 100.0100, L500.4050, L500.4100, L501.9520, L503.0106, L506.1001 #### [facility] [address] [place], [address] Platelets (Bld) [#/Vol] 226 10*3/uL Normal 150-450 [facility] Comment on above: Performed By: #### L 100.0100, L500.4050, L500.4100, L501.9520, L503.0106, L506.1001 #### [facility] [address] [place], [address] RBC (Bld) [#/Vol] 5.35 10*6/uL Normal 4.2-5.4 [facility] Comment on above: Performed By: #### L 100.0100, L500.4050, L500.4100, L501.9520, L503.0106, L506.1001 #### [facility] [address] [place], [address] RDW SD 41.1 fl Normal 35.1-43.9 [facility] Comment on above: Performed By: #### L 100.0100, L500.4050, L500.4100, L501.9520, L503.0106, L506.1001 #### [facility] [address] [place], [place], [address] WBC (Bld) [#/Vol] 9.3 10*3/uL Normal 4.4-11.0 [facility] Comment on above: Performed By: #### L 100.0100, L500.4050, L500.4100, L501.9520, L503.0106, L506.1001 #### [facility] [address] [facility] [place] [place], [address] Calculated very low density lipoprotein (VLDL) cholesterol measurementOrdered By: Jose Luis Donnelly on 06-19-2025 Calculated very low density lipoprotein (VLDL) cholesterol measurement 30 mg/dL 5-40 [facility] Carbon dioxide, total [Moles /volume] in Central venous bloodOrdered By: Jose Luis Donnelly on 06-19-2025 CO2 [Moles/Vol] 22.4 mmol/L 21.0-32.0 [facility] Comment on above: Previous reported re sult: 20.9 mmol/LEdited by: AUTOINS on 06/19/25:1326 AMENDED REPORT 06/19/25 1326 CO2 previously reported as: 20.9 L mmol/L Chloride assayOrdered By: Александр Donnelly on 06-19-2025 Chloride [Moles/Vol] 105 mmol/L 98-108 [facility] Comment on above: Previous reported re sult: 104 mmol/LEdited by: AUTOINS on 06/19/25:1326 AMENDED REPORT 06/19/25 1326 CL previously reported as: 104 mmol/L Comprehensive Metabolic Prof ilon 06-19-2025 Albumin [Mass/Vol] 4.5 g/dL Normal 3.5-5.0 [facility] Comment on above: Result Comment: AMENDED REPORT 06/19/25 1326 ALB previously reported as: 4.3 g/dL Performed By: #### L 100.0100, L500.4050, L500.4100, L501.9520, L503.0106, L506.1001 #### [facility] [address] [place], [address] Albumin/Globulin [Mass ratio] 1.6 {ratio} Normal 0.9-2.4 [facility] Comment on above: Result Comment: AMENDED REPORT 06/19/251325 A/G previously reported as: 1.3 RATIO Performed By: #### L 100.0100, L500.4050, L500.4100, L501.9520, L503.0106, L506.1001 #### [facility] [address] [place], [address] ALK PHOS 83 U/L Normal 35-104 [facility] Comment on above: Result Comment: AMENDED REPORT 06/19/251325 ALK P previously reported as: 79 U/L Performed By: #### L 100.0100, L500.4050, L500.4100, L501.9520, L503.0106, L506.1001 #### [facility] [address] [place], [place], [id number] ALT [Catalytic activity/Vol] 25 U/L Normal <=34 [facility] Comment on above: Result Comment: AMENDED REPORT 06/19/251325 ALT previously reported as: 24 U/L Performed By: #### L 100.0100, L500.4050, L500.4100, L501.9520, L503.0106, L506.1001 #### [facility] [address] [place], [address] AST [Catalytic activity/Vol] 22 U/L Normal <=31 [facility] Comment on above: Result Comment: AMENDED REPORT 06/19/251325 AST previously reported as: 23 U/L Performed By: #### L 100.0100, L500.4050, L500.4100, L501.9520, L503.0106, L506.1001 #### [facility] [address] [place], [address] Bilirubin [Mass/Vol] 2.09 mg/dL High 0.00-1.30 [facility] Comment on above: Result Comment: AMENDED REPORT 06/19/251325 T BILI previously reported as: 2.02 H mg/dL Performed By: #### L 100.0100, L500.4050, L500.4100, L501.9520, L503.0106, L506.1001 #### [facility] [address] [place], [place], [id number] BUN/CRE 13.6 RATIO Normal 10-20 [facility] Comment on above: Result Comment: AMENDED REPORT 06/19/251325 BUN/CRE previously reported as: 12.7 RATIO Performed By: #### L 100.0100, L500.4050, L500.4100, L501.9520, L503.0106, L506.1001 #### [facility] [address] [place], [address] Calcium [Mass/Vol] 9.9 mg/dL Normal 7.6-11.0 [facility] Comment on above: Result Comment: AMENDED REPORT 06/19/251325 CA previously reported as: 10.0 mg/dL Performed By: #### L 100.0100, L500.4050, L500.4100, L501.9520, L503.0106, L506.1001 #### [facility] [address] [place], [address] Chloride [Moles/Vol] 105 mmol/L Normal 98-108 [facility] Comment on above: Result Comment: AMENDED REPORT 06/19/251325 CL previously reported as: 104 mmol/L Performed By: #### L 100.0100, L500.4050, L500.4100, L501.9520, L503.0106, L506.1001 #### [facility] [address] [place], [address] CO2 [Moles/Vol] 22.4 mmol/L Normal 21.0-32.0 [facility] Comment on above: Result Comment: AMENDED REPORT 06/19/251325 CO2 previously reported as: 20.9 L mmol/L Performed By: #### L 100.0100, L500.4050, L500.4100, L501.9520, L503.0106, L506.1001 #### [facility] [address] [place], [address] Creatinine [Mass/Vol] 0.92 mg/dL Normal 0.70-1.20 [facility] Comment on above: Result Comment: AMENDED REPORT 06/19/251325 CREAT,SERUM previously reported as: 0.98 mg/dL Performed By: #### L 100.0100, L500.4050, L500.4100, L501.9520, L503.0106, L506.1001 #### [facility] [address] [place], [address] GAP 11 Normal 5-15 [facility] Comment on above: Performed By: #### L 100.0100, L500.4050, L500.4100, L501.9520, L503.0106, L506.1001 #### [facility] [address] [place], [address] Globulin (S) [Mass/Vol] 2.8 g/dL Normal 2.2-4.2 [facility] Comment on above: Result Comment: AMENDED REPORT 06/19/251325 GLOB previously reported as: 3.4 g/dL Performed By: #### L 100.0100, L500.4050, L500.4100, L501.9520, L503.0106, L506.1001 #### [facility] [address] [place], [address] Glucose [Mass/Vol] 95 mg/dL Normal 70-99 [facility] Comment on above: Result Comment: AMENDED REPORT 06/19/251325 GLU previously reported as: 93 mg/dL Performed By: #### L 100.0100, L500.4050, L500.4100, L501.9520, L503.0106, L506.1001 #### [facility] [address] [place], [address] Potassium [Moles/Vol] 4.3 mmol/L Normal 3.3-5.1 [facility] Comment on above: Result Comment: AMENDED REPORT 06/19/251325 K previously reported as: 4.5 mmol/L Performed By: #### L 100.0100, L500.4050, L500.4100, L501.9520, L503.0106, L506.1001 #### [facility] [address] [place], [address] Sodium [Moles/Vol] 138 mmol/L Normal 133-145 [facility] Comment on above: Performed By: #### L 100.0100, L500.4050, L500.4100, L501.9520, L503.0106, L506.1001 #### [facility] [address] [place], [address] T PROT 7.3 g/dL Normal 5.9-8.4 [facility] Comment on above: Result Comment: AMENDED REPORT 06/19/251325 T PROT previously reported as: 7.7 g/dL Performed By: #### L 100.0100, L500.4050, L500.4100, L501.9520, L503.0106, L506.1001 #### [facility] [address] [place], [address] Urea nitrogen [Mass/Vol] 13 mg/dL Normal 4-19 [facility] Comment on above: Result Comment: AMENDED REPORT 06/19/25 1326 BUN previously reported as: 12 mg/dL Performed By: #### L 100.0100, L500.4050, L500.4100, L501.9520, L503.0106, L506.1001 #### [facility] [address] [place], [place], [address] Eosinophil percentageOrdered By: Jose Luis Donnelly on 06-19-2025 Eosinophils/100 WBC (Bld) 1.0 % 0-5 [facility] Erythrocyte distribution wid th ratioOrdered By: Jose Luis Donnelly on 06-19-2025 Erythrocyte distribution width (RBC) [Ratio] 12.2 % 11.6-14.6 [facility] Erythrocyte distribution wid th standard deviationOrdered By: Jose Luis Donnelly on 06-19-2025 Erythrocyte distribution width (RBC) [Ratio] 41.1 fl 35.1-43.9 [facility] Glomerular filtration rate ( GFR) estimation/1.73 sq m using serum, plasma, or whole bOrdered By: Jose Luis Donnelly on 06-19-2025 GFR/1.73 sq M.predicted among non-blacks MDRD (S/P/Bld) [Vol rate/Area] 74 mL/min/{1.73_m2} >60 [facility] Comment on above: mL/min/1.73m2 CKD-EP I Creatinine Equation (2020) Hematocrit Auto (Bld) [Volum e fraction]Ordered By: Jose Luis Donnelly on 06-19-2025 Hematocrit (Bld) [Volume fraction] 48.9 % High 37-47 [facility] Hemoglobin measurementOrdere d By: Jose Luis Donnelly on 06-19-2025 Hemoglobin (Bld) [Mass/Vol] 15.9 g/dL High 12.0-15. 0 [facility] Immature granulocytes/100 WB C Auto (Bld)Ordered By: Jose Luis Donnelly on 06-19-2025 Immature granulocytes/100 WBC (Bld) 0.500 % 0.0-0.9 [facility] Comment on above: IG% - Immature Granu locytes (promyelocytes, myelocytes and metamyelocytes) > 1% indicates that a LEFT SHIFT is Present. LDL calc ser/plasOrdered By: Jose Luis Donnelly on 06-19-2025 Cholesterol in LDL [Mass/Vol] 134 mg/dL [facility] Comment on above: Jdbvyjegcz=072-151 m g/dL & Higher Mwzn=061 mg/dL or greater Laboratory - Chemistry and C hemistry - challengeOrdered By: Jose Luis Donnelly on 06-19-2025 AST [Catalytic activity/Vol] 22 U/L <32 [facility] Comment on above: Previous reported re sult: 23 U/LEdited by: AUTOINS on 06/19/25:1326 AMENDED REPORT 06/19/25 1326 AST previously reported as: 23 U/L Lipid Profileon 06-19-2025 CHOL:HDL 3.74 Normal [facility] Comment on above: Performed By: #### L 100.0100, L500.4050, L500.4100, L501.9520, L503.0106, L506.1001 #### [facility] [address], [address] Cholesterol [Mass/Vol] 223 mg/dL High <=200 [facility] Comment on above: Result Comment: Chol esterol level, Desirable <200 mg/dL Borderline high cholesterol 200-239 mg/dL High cholesterol >=240 mg/dL Recommendations of the NCEP Adult Treatment Panel for the following risk-cutoff thresholds for the [place] population. Performed By: #### L 100.0100, L500.4050, L500.4100, L501.9520, L503.0106, L506.1001 #### [facility] [address] [place], [address] Cholesterol in HDL [Mass/Vol] 60 mg/dL Normal [facility] Comment on above: Result Comment: Soraya onal Cholesterol Education Program (NCEP) guidelines: <40 mg/dL: Low HDL-cholesterol (major risk factor for CHD) >= 60 mg/dL: High HDL-cholesterol (negative risk factor for CHD) HDL-cholesterol is affected by a number of factors, e.g. smoking, exercise, hormones, sex and age. Performed By: #### L 100.0100, L500.4050, L500.4100, L501.9520, L503.0106, L506.1001 #### [facility] [address] [place], [address] Cholesterol in LDL [Mass/Vol] 134 mg/dL Normal [facility] Comment on above: Result Comment: Bord uozcsg=323-357 mg/dL Higher Cblh=159 mg/dL or greater Performed By: #### L 100.0100, L500.4050, L500.4100, L501.9520, L503.0106, L506.1001 #### [facility] [address] [place], [address] Cholesterol in VLDL [Mass/Vol] 30 mg/dL Normal 5-40 [facility] Comment on above: Performed By: #### L 100.0100, L500.4050, L500.4100, L501.9520, L503.0106, L506.1001 #### [facility] [address] [place], [address] Triglyceride [Mass/Vol] 149 mg/dL Normal [facility] Comment on above: Result Comment: The drugs N-Acetylcysteine and Metamizole may falsely depress this assay. Normal range: <150 mg/dL Borderline High: 150-199 mg/dL High: 200-499 mg/dL Very High: >500 mg/dL Performed By: #### L 100.0100, L500.4050, L500.4100, L501.9520, L503.0106, L506.1001 #### [facility] [address] [place], [address] MCV (mean corpuscular volume ) determinationOrdered By: Jose Luis Donnelly on 06-19-2025 MCV (RBC) [Entitic vol] 91.4 fL 81-99 [facility] Mean corpuscular hemoglobin (MCH) determinationOrdered By: Jose Luis Donnelly on 06-19-2025 MCH (RBC) [Entitic mass] 29.7 pg 27.0-32.0 [facility] Mean corpuscular hemoglobin concentration (MCHC) determinationOrdered By: Jose Luis Donnelly on 06-19-2025 MCHC (RBC) [Mass/Vol] 32.5 g/dL 32-36 [facility] Mean platelet volume determi nationOrdered By: Jose Luis Donnelly on 06-19-2025 Platelet mean volume (Bld) [Entitic vol] 11.6 fL 6.2-12.0 [facility] Monocyte percentageOrdered B y: Jose Luis Donnelly on 06-19-2025 Monocytes/100 WBC (Bld) 4.7 % 0-10 [facility] Neutrophil percentageOrdered By: Jose Luis Donnelly on 06-19-2025 Neutrophils/100 WBC (Bld) 65.6 % 47-70 [facility] Nucleated red blood cell per centageOrdered By: Jose Luis Donnelly on 06-19-2025 Nucleated RBC/100 WBC (Bld) [Ratio] 0 % 0-5 [facility] Platelet countOrdered By: Александр Donnelly on 06-19-2025 Platelets (Bld) [#/Vol] 226 10*3/uL 150-450 [facility] Potassium measurement (mass/ volume)Ordered By: Jose Luis Donnelly on 06-19-2025 Potassium (Unsp spec) [Mass/Vol] 4.3 mmol/L 3.3-5.1 [facility] Comment on above: Previous reported re sult: 4.5 mmol/LEdited by: AUTOINS on 06/19/25:1326 AMENDED REPORT 06/19/25 1326 K previously reported as: 4.5 mmol/L RBC Auto (Bld) [#/Vol]Ordere d By: Jose Luis Donnelly on 06-19-2025 RBC (Bld) [#/Vol] 5.35 10*6/uL 4.2-5.4 [facility] Screening total cholesterol/ high density lipoprotein (HDL) cholesterol ratioOrdered By: Jose Luis Donnelly on 06-19-2025 Cholesterol.total/Cholester ol in HDL [Mass ratio] 3.74 {ratio} [facility] Serum creatinine measurement (mass/volume)Ordered By: Jose Luis Donnelly on 06-19-2025 Creatinine [Mass/Vol] 0.92 mg/dL 0.70-1.20 [facility] Comment on above: Previous reported re sult: 0.98 mg/dLEdited by: AUTOINS on 06/19/25:1326 AMENDED REPORT 06/19/25 1326 CREAT,SERUM previously reported as: 0.98 mg/dL Serum globulin measurementOr dered By: Jose Luis Donnelly on 06-19-2025 Globulin (S) [Mass/Vol] 2.8 g/dL 2.2-4.2 [facility] Comment on above: Previous reported re sult: 3.4 g/dLEdited by: JACOB on 06/19/25:1326 AMENDED REPORT 06/19/25 1326 GLOB previously reported as: 3.4 g/dL Serum glucose measurement (m ass/volume)Ordered By: Jose Luis Donnelly on 06-19-2025 Glucose [Mass/Vol] 95 mg/dL 70-99 [facility] Comment on above: Previous reported re sult: 93 mg/dLEdited by: JACOB on 06/19/25:1326 AMENDED REPORT 06/19/25 1326 GLU previously reported as: 93 mg/dL Serum or plasma alanine perea otransferase (ALT) measurementOrdered By: Jose Luis Donnelly on 06-19-2025 ALT [Catalytic activity/Vol] 25 U/L <35 [facility] Comment on above: Previous reported re sult: 24 U/LEdited by: AUTOINS on 06/19/25:1326 AMENDED REPORT 06/19/25 1326 ALT previously reported as: 24 U/L Serum or plasma albumin mellisa urement (mass/volume)Ordered By: Jose Luis Donnelly on 06-19-2025 Albumin [Mass/Vol] 4.5 g/dL 3.5-5.0 [facility] Comment on above: Previous reported re sult: 4.3 g/dLEdited by: AUTOINS on 06/19/25:1326 AMENDED REPORT 06/19/25 1326 ALB previously reported as: 4.3 g/dL Serum or plasma albumin/glob ulin mass ratioOrdered By: Jose Luis Donnelly on 06-19-2025 Albumin/Globulin [Mass ratio] 1.6 {ratio} 0.9-2.4 [facility] Comment on above: Previous reported re sult: 1.3 RATIOEdited by: AUTOINS on 06/19/25:1326 AMENDED REPORT 06/19/25 1326 A/G previously reported as: 1.3 RATIO Serum or plasma alkaline matias sphatase measurementOrdered By: Jose Luis Donnelly on 06-19-2025 ALP [Catalytic activity/Vol] 83 U/L 35-104 [facility] Comment on above: Previous reported re sult: 79 U/LEdited by: JACOB on 06/19/25:1326 AMENDED REPORT 06/19/25 1326 ALK P previously reported as: 79 U/L Serum or plasma calcium mellisa urement (mass/volume)Ordered By: Jose Luis Donnelly on 06-19-2025 Calcium [Mass/Vol] 9.9 mg/dL 7.6-11.0 [facility] Comment on above: Previous reported re sult: 10.0 mg/dLEdited by: GEORGIS on 06/19/25:1326 AMENDED REPORT 06/19/25 1326 CA previously reported as: 10.0 mg/dL Serum or plasma cholesterol in HDL measurement (mass/volume)Ordered By: Jose Luis Donnelly on 06-19-2025 Cholesterol in HDL [Mass/Vol] 60 mg/dL >40 [facility] Comment on above: National Cholesterol Education Program (NCEP) guidelines:<40 mg/dL: Low HDL-cholesterol (major risk factor for CHD)>= 60 mg/dL: High HDL-cholesterol (negative risk factor for CHD)HDL-cholesterol is affected by a number of factors, e.g. smoking, exercise, hormones, sex and age. Serum or plasma cholesterol measurement (mass/volume)Ordered By: Jose Luis Donnelly on 06-19-2025 Cholesterol [Mass/Vol] 223 mg/dL High <201 [facility] Comment on above: Cholesterol level, D esirable <200 mg/dLBorderline high cholesterol 200-239 mg/dLHigh cholesterol >=240 mg/dLRecommendations of the NCEP Adult Treatment Panel for the following risk-cutoff thresholds for the [place] Citizen [place] population. Serum or plasma urea nitroge n measurement (mass/volume)Ordered By: Jose Luis Donnelly on 06-19-2025 Urea nitrogen [Mass/Vol] 13 mg/dL 4-19 [facility] Comment on above: Previous reported re sult: 12 mg/dLEdited by: AUTOINS on 06/19/25:1326 AMENDED REPORT 06/19/25 1326 BUN previously reported as: 12 mg/dL Sodium levelOrdered By: Jose Luis Donnelly on 06-19-2025 Sodium [Moles/Vol] 138 mmol/L 133-145 [facility] TSH DL <= 0.005 mIU/L QnOrde red By: Jose Luis Donnelly on 06-19-2025 TSH Qn 3.180 uIU/mL 0.300-4.200 [facility] Comment on above: Previous reported re sult: 3.010 uIU/mLEdited by: AUTOINS on 06/19/25:1326 AMENDED REPORT 06/19/25 1326 TSH previously reported as: 3.010 uIU/mL Thyroid Stim Hormone (TSH)on 06-19-2025 TSH 3.180 uIU/mL Normal 0.300-4.200 [facility] Comment on above: Result Comment: AMENDED REPORT 06/19/25 1326 TSH previously reported as: 3.010 uIU/mL Performed By: #### L 100.0100, L500.4050, L500.4100, L501.9520, L503.0106, L506.1001 ####[facility] [address] [place], [place], [id number] Total proteinOrdered By: Kathya Donnelly on 06-19-2025 Protein [Mass/Vol] 7.3 g/dL 5.9-8.4 [facility] Comment on above: Previous reported re sult: 7.7 g/dLEdited by: AUTOINS on 06/19/25:1326 AMENDED REPORT 06/19/25 1326 T PROT previously reported as: 7.7 g/dL Triglycerides measurementOrd ered By: Jose Luis Donnelly on 06-19-2025 Triglyceride [Mass/Vol] 149 mg/dL <199 [facility] Comment on above: The drugs N-Acetylcy steine and Metamizole may falsely depress this assay. Normal range: <150 mg/dLBorderline High: 150-199 mg/dLHigh: 200-499 mg/dLVery High: >500 mg/dL Vitamin B12on 06-19-2025 Cobalamin (Vitamin B12) [Mass/Vol] 636 pg/mL Normal 180-914 [facility] Comment on above: Result Comment: AMENDED REPORT 06/19/256 Vitamin B12 previously reported as: 674 pg/mL Performed By: #### L 100.0100, L500.4050, L500.4100, L501.9520, L503.0106, L506.1001 ####[facility] [address] [place], [address] Vitamin B12 ser/plasOrdered By: Jose Luis Donnelly on 06-19-2025 Cobalamin (Vitamin B12) [Mass/Vol] 636 pg/mL 180-914 [facility] Comment on above: Previous reported re sult: 674 pg/mLEdited by: JACOB on 06/19/25:1326 AMENDED REPORT 06/19/25 1326 Vitamin B12 previously reported as: 674 pg/mL Vitamin D,25 Hydroxyon 06-19 Vitamin D 25-OH 48.5 ng/mL Normal 30-100 [facility] Comment on above: Result Comment: Isabella min D Status Deficiency: <20 ng/mL (50nmol/L) Insufficiency: 20-30 ng/mL (50-75 nmol/L) Sufficiency: 30-100 ng/mL (75-250 nmol/L) Toxicity: >100 ng/mL (>250 nmol/L) AMENDED REPORT 06/19/25 1326 Vitamin D 25-OH previously reported as: 45.3 ng/mL Vitamin D Status Deficiency: <20 ng/mL (50nmol/L) Insufficiency: 20-30 ng/mL (50-75 nmol/L) Sufficiency: 30-100 ng/mL (75-250 nmol/L) Toxicity: >100 ng/mL (>250 nmol/L) Performed By: #### L 100.0100, L500.4050, L500.4100, L501.9520, L503.0106, L506.1001 ####[facility] [address] [place], [address] White blood cell (WBC) count Ordered By: Jose Luis Donnelly on 06-19-2025 WBC (Bld) [#/Vol] 9.3 10*3/uL 4.4-11.0 [facility] Breast imaging reportOrdered By: Ivy Russo on 02-04-2025 Study report [facility] Imaging Services [address] [place] [address] SCRN MAMM (CAD)W/ERNESTINA BILAT MR#: [id number] Acct: [id number] Name: ELLE VICENTE Rep #: [id number] : 1980 F 44 From: Radha Russo MD PCP: Dr. Jose Luis Donnelly DO Status: REG CLI Study:SCRN MAMM (CAD)W/ERNESTINA BILAT Date of Exa m: 02/03/25 Exam# [id number] Ordering Dr: Erica Valdez DO PROCEDURE: SCRN MAMM (CAD)W/ERNESTINA BILAT REASON FOR EXAM: F, Age 44 y/o, presents for annual screening mammogram. Family history of breast cancer in a maternal aunt in her 50s. TECHNIQUE: Bilateral screening digital breast tomosynthesis with 2D and 3D images. Computeraided detection. COMPARISON: 01/09/2024, 12/27/2022 FINDINGS: The breasts are heterogeneously dense which may obscure small masses. The mammogram demonstrates that the patient has dense breasts. Supplemental screening with whole breast ultrasound or MRI may be considered for further evaluation. No suspicious masses, areas of developing architectural distortion, or suspicious calcifications. BI/SCRN MAMM (CAD)W/ERNESTINA BILAT IMPRESSION: There is no mammographic evidence of malignancy. BI-RADS 1: NEGATIVE. RECOMMEND ANNUAL MAMMOGRAPHIC SCREENING. Follow-up code: Routine Follow-up. The patient will be notified of the results by letter. Reading Location: [facility] CC: Dr. Erica Ulloa DO; Dr. Jose Luis Donnelly DO ~ Industrial Paramedic: Signed [facility] SCRN MAMM (CAD)W/ERNESTINA BILATo n 02-03-2025 SCRN MAMM (CAD)W/ERNESTINA BILAT [facility] Imaging Services [address] [place], [place] [id number] SCRN MAMM (CAD)W/ERNESTINA BILAT MR#: [id number] Acct: [id number] Name: ELLE VICENTE Rep #: [id number] : 1980 F 44 From: Ivy Russo MD PCP: Dr. Jose Luis Donnelly DO Status: REG CLI Study: SCRN MAMM (CAD)W/ERNESTINA BILAT Date of Exam: 01/25 Exam# [id number] Ordering Dr: Erica Ulloa DO PROCEDURE: SCRN MAMM (CAD)W/ERNESTINA BILAT REASON FOR EXAM: F, Age 44 y/o, presents for annual screening mammogram. Family history of breast cancer in a maternal aunt in her 50s. TECHNIQUE: Bilateral screening digital breast tomosynthesis with 2D and 3D images. Computer aided detection. COMPARISON: 01/09/2024, 12/27/2022 FINDINGS: The breasts are heterogeneously dense which may obscure small masses. The mammogram demonstrates that the patient has dense breasts. Supplemental screening with whole breast ultrasound or MRI may be considered for further evaluation. No suspicious masses, areas of developing architectural distortion, or suspicious calcifications. BI/SCRN MAMM (CAD)W/ERNESTINA BILAT IMPRESSION: There is no mammographic evidence of malignancy. BI-RADS 1: NEGATIVE. RECOMMEND ANNUAL MAMMOGRAPHIC SCREENING. Follow-up code: Routine Follow-up. The patient will be notified of the results by letter. Reading Location: [facility] CC: Dr. Erica Ulloa DO; Dr. Jose Luis Donnelly, DO Industrial Paramedic: Signed Normal [facility] Cafeteria Manager Office Visit Reporton 01-29-2025 Cafeteria Manager Office Visit Report [facility] [address], [address] [place] [address] OFFICE VISIT Date of Service: 01/29/25 MR#: [id number] Acct: [id number] Name: ELLE VICENTE Rep #: [id number] : 1980 Provider: Dr. 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: No Is patient in pain?: No Allergies levofloxacin (From Levaquin) Allergy (Severe, Verified 01/29/25 08:03) rash Medications ???Medication ???Instructions ???Recorded ???Confirmed ???Type multivitamin 1 tab PO DAILY 01/01/15 01/29/25 H istory cholecalciferol (vitamin D3) 50 50 mcg PO DAILY 07/26/22 01/29/25 History mcg (2,000 unit) tablet rizatriptan 10 mg tablet 10 mg PO .COMPLEX #9 tabs 01/03/23 01/29/25 Rx topiramate 25 mg tablet 25 mg PO BID #60 tabs 01/03/2304/20 Rx aspirin 81 mg tablet,delayed 81 mg PO DAILY initiated by PCP 01/29/25 History release (Adult Aspirin Regimen) hyoscyamine sulfate 0.125 mg tablet 0.125 mg PO BID-QID PRN dyspeps ia 11/21/24 03/05/25 Rx #30 tabs citalopram 10 mg tablet 10 mg PO QDAY 11/26/24 01/29/25 Hi story Post menopausal: No Patient : No : No PFSH Medical History Easy bruising Anticardiolipin antibody positive Polycythemia Wears contact lenses Wears glasses Post-menopausal Arthritis Back pain History of diverticulitis Gastric reflux History of Holter monitoring History of echocardiogram History of stress test Cardiology follow-up encounter Hypokalemia Depression Anxiety Aortic atherosclerosis Obesity Varicose veins of left leg with edema Ocular migraine Mixed anxiety and depressive disorder Contact with or suspected exposure to other viral communicable disease Acute sinusitis Sinus congestion History of COVID-19 (04/20/22) COVID-19 Disequilibrium Chronic neck pain Other specified dorsopathies, cervical region Fatigue Low vitamin D level History of uterine fibroid Migraine headache Surgical History History of adenoidectomy History of partial hysterectomy Family History Mother Arthritis Heart disease Aunt Breast cancer Father Cancer Skin cancer Hypertension Hyperlipidemia Gilbert's disease Grandfather Cancer Skin cancer Gilbert's disease Grandmother Parkinson's disease Social History Smoking Status: Never smoker alcohol intake: former substance use type: does not use caffeine: No what type of physical activity do you participate in: walking and other details: 12,000 steps frequency: daily History 0 Elective abortions Hx Para Spontaneous abortions Hx # Term Pregnancies Ectopic pregnancies Hx # Pregnancies Multiple births # of living children HPI Encounter for routine gynecological examination Details: ELLE VICENTE is a 44 year old who presents for annual exam. Last PAP: prior to hyst History of abnormal PAP: no Last mammogram: 01/09/24 History of abnormal mammogram: no Colon cancer screening: had one this year due to GI complications - has diverticulitis. Other preventative health care screenings: followed by pcp Female Reproductive History Questions: metorrhagia: No, sexually active: Yes, dyspareunia: No and PCB: No Menopausal Symptoms: No hot flashes, No night sweats, No weight change, No mood changes, No difficulty concentrating, No sleep problems and No change in libido ROS Const Constitutional: Reports as per HPI; Denies fatigue, increased appetite, poor appetite, night sweats, weight gain or weight loss Cardio Card: Denies chest pain Resp Resp: Denies cough or dyspnea GI GI: Reports as per HPI; Denies abdominal pain, bloating, constipation, nausea or vomiting : Reports as per HPI and other; Denies difficulty voiding, dysuria, hematuria, hot flashes, nipple discharge, pelvic pain, prolapse symptoms, urinary frequency, urinary incontinence, urinary urgency, vaginal discharge, vaginal dryness, vaginal odor or vaginal pruritus Skin Skin/Breast: Denies changing lesions, breast mass, breast pain, breast skin changes or nipple discharge Psych Psych: Denies anxiety, change in libido, depression or difficulty concentrating Exam Const General: cooperative, healthy appearing, comfortable, no acute distress, well developed and well groomed HENMT (more content not included)... Normal [facility] Gastroenterology Visit Repor ton 01-20-2025 Gastroenterology Visit Report [facility] Gastroenterology [address] [place] [address] OFFICE VISIT Date of Service: 01/20/25 MR#: [id number] Acct: [id number] Name: ELLE VICENTE Rep #: [id number] : 1980 Provider: Skyler Young DO Age/Sex: 44/F Location[place] [facility] [place] Status: Signed Intake Vital Signs 04/02/24 11:09 08/27/24 15:07 Height 5 ft 5 in 5 ft 5 in Intake Visit Reasons: 6 M FU Allergies levofloxacin (From Levaquin) Allergy (Severe, Verified 11/26/24 08:40) rash Medications ???Medication ???Instructions ???Recorded ???Confirmed ???Type multivitamin 1 tab PO DAILY 01/01/15 01/20/25 H istory cholecalciferol (vitamin D3) 50 50 mcg PO DAILY 07/26/22 01/20/25 History mcg (2,000 unit) tablet rizatriptan 10 mg tablet 10 mg PO .COMPLEX #9 tabs 01/03/23 01/20/25 Rx topiramate 25 mg tablet 25 mg PO BID #60 tabs 01/03/23 Rx aspirin 81 mg tablet,delayed 81 mg PO DAILY initiated by PCP 01/20/25 History release (Adult Aspirin Regimen) hyoscyamine sulfate 0.125 mg tablet 0.125 mg PO BID-QID PRN dyspeps ia 10/17/24 01/20/25 Rx #30 tabs citalopram 10 mg tablet 10 mg PO QDAY 11/26/24 11/26/24 Hi story PFS Medical History Easy bruising Anticardiolipin antibody positive Polycythemia Wears contact lenses Wears glasses Post-menopausal Arthritis Back pain History of diverticulitis Gastric reflux History of Holter monitoring History of echocardiogram History of stress test Cardiology follow-up encounter Hypokalemia Depression Anxiety Aortic atherosclerosis Obesity Varicose veins of left leg with edema Ocular migraine Mixed anxiety and depressive disorder Contact with or suspected exposure to other viral communicable disease Acute sinusitis Sinus congestion History of COVID-19 (04/20/22) COVID-19 Disequilibrium Chronic neck pain Other specified dorsopathies, cervical region Fatigue Low vitamin D level History of uterine fibroid Migraine headache Surgical History History of adenoidectomy History of partial hysterectomy Family History Mother Arthritis Heart disease Aunt Breast cancer Father Cancer Skin cancer Hypertension Hyperlipidemia Gilbert's disease Grandfather Cancer Skin cancer Gilbert's disease Grandmother Parkinson's disease Social History Smoking Status: Never smoker alcohol intake: former substance use type: does not use caffeine: No what type of physical activity do you participate in: walking and other details: 12,000 steps frequency: daily HPI HPI Details: ELLE VICENTE, is a 44 F who presents to the office today for follow up. PCP OV 1.3.23 with LUQ/rib pain and irregular bowel pattern with soft stools and unintended weight gain of 15-20lbs. Notes history of mouth bumps/sores; ENT instructed to gargle with salt water which was not helpful. Omeprazole attempted and ineffective. ? KUB 11.29.22 without acute/chronic abnormality. ? CT abd/pel 12.15.22 colonic diverticulosis. ? Biochemical 12.19 CBC, ESR, CMP, LDH, CRP, triglycerides, cholesterol, TSH, T4, BAN screen without pertinent abnormality. *BGI established 06.02.23 When apt made she was having severe LLQ pain, PCP seen and treated for diverticulitis and resolved with ATB therapy. This was the initial episode of diverticulitis. Since infection she has been having constipation with no BM for several days followed by several days of small harder stools with some mild abdominal discomfort and one day of frequent loose stools. Prior to infection she was having a normal BM each day. Notes some intermittent epigastric discomfort; does not have active reflux symptoms, is not on PPI. Start Linzess 145mcg. Contact 06.21.23 with concern for abdominal pain, feels it is related to Linzess use. Ok to stop Linzess. Start dicyclomine. ? KUB without acute/chronic finding. ? GET 06.27.23 57.93 minutes (12-56) Contact 07.04.23 with results; she is doing well with start of dicyclomine. OV 12.11.23 she was having LLQ discomfort in the last couple of weeks with history of ovarian cyst, gynecology recommended pain relief and hot compress which was effective. With use of dicyclomine BID she is having much improved frequency and intensity upper abdominal discomfort; upper abdominal discomfort approximately once a week and is self-resolving after hours to days. BM occur at least every other day, bu (more content not included)... Normal [facility] Venous Duplex US, Unilateral on 12-31-2024 Venous Duplex US, Unilateral [facility] Cardiovascular Services [address] [place] [address] Venous Duplex US, Unilateral 12/31/24 1355 MR#: [id number] Acct: [id number] Name: ELLE VICENTE Rep #: [id number] : 1980 44 From: Luis Gutierrez MD Attending Dr: CHEYENNE Stein Status: REG CLI Ordering Dr: Cindi Trammell Date: 12/31/24 Location: [facility] Sex: F C Admitted: Reason For Study: LLE Pain RIGHT LEFT CFV is compressible, spontaneous, phasic, CFV is compressible, phasic, and INCOMPETENT competent and demonstrates normal for greater than 1.0 second. augmentation. FV is compressible, spontaneous, phasic, Procedure competent and demonstrates normal This is a venous duplex using B-mode, color augmentation. flow and spectral Doppler. POP V is compressible, spontaneous, phasic, Exam performed in department. competent and demonstrates normal The exam was diagnostic. augmentation. T/P Trunk is compressible. PTV is compressible. LT PerV is compressible. SFJ is INCOMPETENT and measures 0.79 cm. GSV proximal thigh measures 0.43 x 0.47 cm. GSV at knee measures 0.45 x 0.47 cm. GSV INCOMPETENT throughout for greater than 0.5 seconds. ASV proximal thigh is INCOMPETENT for greater than 0.5 seconds and measures 0.28 x 0.30 cm. ASV proximal calf is INCOMPETENT for greater than 0.5 seconds and measures 0.90 x 0.98 cm. SSV at junction is competent and measures 0.40 cm. SSV mid calf is competent and measures 0.26 x 0.24 cm. Perforating Vessel prox calf is INCOMPETENT for greater than 0.5 seconds and measures 0.23 cm. VL/Venous Duplex US, Unilateral Interpretation Summary Deep veins of the left lower extremity are patent and compressible segmentally. There is no evidence of left lower extremity deep vein thrombosis. The left great saphenous vein appears patent and compressible segmentally. Positive for reflux in the left common femoral vein, saphenofemoral junction, great saphenous vein throughout, accessory saphenous veins in the thigh and calf, line maintenance technician in proximal calf Ordering Physician: Cindi Trammell Referring Physician: Jose Luis Donnelly Performed By: Chucky Banuelos RVT 12/31/24 1803 Date Luis Gutierrez MD CC: CHEYENNE Stein; Dr. Jose Luis Donnelly, Date Dictated: 12/31/24 1355 Date Transcribed: 12/31/24 180 Industrial Paramedic: Amita [facility] MR/BMS.BVSon 11-26-2024 MR/BMS.BVS [facility] Vascular Surgery [address] [place] [address]. [address] [place] [address] OFFICE VISIT Date of Service: 11/26/24 MR#: [id number] Acct: [id number] Name: ELLE VICENTE Rep #: [id number] : 1980 Provider: CHEYENNE Stein Age/Sex: 44/F Location: [facility] Status: Signed Intake Vital Signs 08/27/24 15:07 11/26/24 08:38 Height 5 ft 5 in Weight: 192 lb BP 126/89 H Blood Pressure Location Lt brachial Position Sitting Respiration 16 Pulse 79 Pulse Source Monitor Temp 98.4 F Temp Source Temporal Pulse Oximetry (%) 99 Oxygen Delivery Method room air Intake Visit Reasons: CT images Chief Complaint: establish care Is patient in pain?: No Allergies levofloxacin (From Levaquin) Allergy (Severe, Verified 11/26/24 08:40) rash Medications ???Medication ???Instructions ???Recorded ???Confirmed ???Type multivitamin 1 tab PO DAILY 01/01/15 11/26/24 History cholecalciferol (vitamin D3) 50 50 mcg PO DAILY 07/26/22 11/26/24 History mcg (2,000 unit) tablet rizatriptan 10 mg tablet 10 mg PO .COMPLEX #9 tabs 01/03/23 11/26/24 Rx topiramate 25 mg tablet 25 mg PO BID #60 tabs 01/03/23 11/26/24 Rx aspirin 81 mg tablet,delayed 81 mg PO DAILY initiated by PCP 01/04/23 11/26/24 History release (Adult Aspirin Regimen) folic acid 1 mg tablet 1 mg PO DAILY #30 tabs 06/26/24 11/26/24 Rx hyoscyamine sulfate 0.125 mg tablet 0.125 mg PO BID-QID PRN dyspepsia 10/17/24 11/26/24 Rx #30 tabs citalopram 10 mg tablet 10 mg PO QDAY 11/26/24 11/26/24 History Is last menstrual period known: No Post menopausal: Yes Patient : No Have you fallen in the past year?: No PFSH Medical History Easy bruising Anticardiolipin antibody positive Polycythemia Wears contact lenses Wears glasses Post-menopausal Arthritis Back pain History of diverticulitis Gastric reflux History of Holter monitoring History of echocardiogram History of stress test Cardiology follow-up encounter Hypokalemia Depression Anxiety Aortic atherosclerosis Obesity Varicose veins of left leg with edema Ocular migraine Mixed anxiety and depressive disorder Contact with or suspected exposure to other viral communicable disease Acute sinusitis Sinus congestion History of COVID-19 (04/20/22) COVID-19 Disequilibrium Chronic neck pain Other specified dorsopathies, cervical region Fatigue Low vitamin D level History of uterine fibroid Migraine headache Surgical History History of adenoidectomy History of partial hysterectomy Family History Mother Arthritis Heart disease Aunt Breast cancer Father Cancer Skin cancer Hypertension Hyperlipidemia Gilbert's disease Grandfather Cancer Skin cancer Gilbert's disease Grandmother Parkinson's disease Social History Smoking Status: Never smoker alcohol intake: former substance use type: does not use caffeine: No what type of physical activity do you participate in: walking and other details: 12,000 steps frequency: daily HPI HPI HPI: ELLE VICENTE, is a 44 F who presents to the office today for 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 Abdomen/Pelvis CT reported "Findings suggestive of varices in the region of the splenic hilum; Cystic structures seen in the cul-de-sac and in the left ovary. Correlation with ultrasound is recommended." No splenomegaly, splenic infarct, splenic vein thrombosis, cirrhosis/hepatomegal y or other portal vein derangement, or pancreatic mass or abnormality were noted. She follows with GI for management of diverticulosis and gastroparesis. She has had both lower and upper left-sided abdominal pain intermittently. In Aug when the CT was ordered she was having predominantly LLQ pain; in September after it was completed she was having more intermittent LUQ pain which radiated to her back without any associated nausea/vomiting, bloating, changes to her BM, difficulty eating. She was started on hycosamine which really seems to help when this pain occurs, she takes this as needed. She has not had this pain for the last month, her gastroparesis seems to be under better control over this last month as well. She denies any history of pancreatitis/chronic pancreatitis, liver disease, gastric/esophageal varices, upper GI bleeding, anemia, malignancy, abdominal trauma/injury, VTE. She does have LLE varicose veins and intermittent associated discomfort typically with crouching/kneeling positions; no history of venous interventions. She was also seen (more content not included)... Normal [facility] Pelvic w/ Transvaginalon Pelvic w/ Transvaginal [facility] [address] [place], [place] [address] Pelvic w/ Transvaginal MR#: [id number] Acct: [id number] Name: ELLE VICENTE Rep #: [id number] : 1980 F 44 From: Huey Camejo MD PCP: Dr. Jose Luis Donnelly DO Status: REG CLI Study: Pelvic w/ Transvaginal Date of Exam: 11/25/24 Exam# [id number] Ordering Dr: Erica Ulloa DO [id number] STUDY: ULTRASOUND OF THE FEMALE PELVIS - COMPLETE REASON FOR EXAM: Female, 44 years old. left ovarian cyst LMP: Status post hysterectomy. TECHNIQUE: Transabdominal and Transvaginal TECHNICAL QUALITY: Adequate. COMPARISON: 10/08/2024 FINDINGS: Status post hysterectomy. The right ovary is visualized. The right ovary measures 4.1 x 3.8 x 2.8 cm. And 3.9 cm oval anechoic mass with a single thin septation in the right ovary consistent with a corpus luteum cyst. There is no visualized right adnexal mass or complex lesion. There is normal arterial and normal venous vascularity. The left ovary is visualized. The left ovary measures 4.5 x 4.1 x 3.4 cm. There is no left ovarian cyst or ovarian mass. There is no visualized left adnexal mass or complex lesion. There is normal arterial and normal venous vascularity. There is no fluid in the cul-de-sac. The pre void volume of the bladder was ml. The post void volume of the bladder was ml. Polycystic ovary disease: No. US/Pelvic w/ Transvaginal IMPRESSION: 3.9 cm right ovarian corpus luteum cyst. Electronically Signed: Huey Camejo MD at 13:27 EST , CC: Dr. Erica Ulloa DO; Dr. Jose Luis Donnelly DO Industrial Paramedic: Signed Normal [facility] Pelvic w/ Transvaginalon Pelvic w/ Transvaginal [facility] [address] [place] [address] Pelvic w/ Transvaginal MR#: [id number] Acct: [id number] Name: ELLE VICENTE Rep #: [id number] : 1980 F 44 From: Huey Camejo MD PCP: Dr. Jose Luis Donnelly DO Status: REG CLI Study: Pelvic w/ Transvaginal Date of Exam: 10/08/24 Exam# [id number] Ordering Dr: Erica Ulloa DO [id number] STUDY: ULTRASOUND OF THE FEMALE PELVIS - LIMITED REASON FOR EXAM: Female, 44 years old ovarian cyst TECHNIQUE: Transabdominal and Transvaginal TECHNICAL QUALITY: Adequate. COMPARISON: 11/11/2022, CT 09/30/2024 FINDINGS: Status post hysterectomy.. The right ovary is not visualized.. The left ovary measures 4.3 x 3.4 x 5.0 cm. 3.4 cm round hypoechoic mass with increased through transmission within the left ovary consistent with a hemorrhagic corpus luteum cyst. 3.6 cm round hypoechoic mass with mural nodularity and increased through transmission adjacent to the left ovary which may represent an exophytic cortical sodium cyst or part ovarian cyst. There is normal arterial and normal venous vascularity. There is no fluid in the cul-de-sac. US/Pelvic w/ Transvaginal IMPRESSION: Status post hysterectomy. Nonvisualization right ovary. Complex cystic masses in the left ovary, likely corpus luteum cyst and/or par ovarian cyst. Electronically Signed: Huey Camejo MD at 12:27 EST , CC: Dr. Erica Ulloa DO; Dr. Jose Luis Donnelly DO Industrial Paramedic: Signed Normal [facility] Abdomen/Pelvis WITH Contrast on 09-30-2024 Abdomen/Pelvis WITH Contrast [facility] [address] [place], [place] [address] Abdomen/Pelvis WITH Contrast MR#: [id number] Acct: [id number] Name: ELLE VICENTE Rep #: [id number] : 1980 F 44 From: Ry alvarez MD PCP: Dr. Jose Luis Donnelly DO Status: REG CLI Study: Abdomen/Pelvis WITH Contrast Date of Exam: 03/20 Exam# [id number] Ordering Dr: Shante Mann [employer]C [id number] STUDY: CT ABDOMEN AND PELVIS WITH CONTRAST REASON FOR EXAM: Female, 44 years old. Abdominal pain in a new location RADIATION DOSAGE (If Supplied By Facility): CTDIvol = ( 18.14 ) mGy, DLP = ( 1089.20 ) mGycm TECHNIQUE: Transaxial images were obtained from the dome of the diaphragm to the symphysis pubis with oral contrast. Oral and amp;amp; IV Readi-CAT and amp;amp; 100mL Isovue-300 was administered. Sagittal and coronal images were reconstructed. Individualized dose optimization techniques were used for this CT. COMPARISON: Comparison is made with prior study dated December 15, 2022. FINDINGS: The visualized lung bases are unremarkable. The visualized portions of the heart are within normal limits. Normal liver. Normal gallbladder and extrahepatic biliary system. Normal spleen. Findings suggestive of varices in the region of the splenic hilum. Normal pancreas. Normal bilateral adrenal glands. Normal right kidney. Normal left kidney. Normal visualized stomach. Normal small intestine. There are scattered colonic diverticula consistent with diverticulosis. The appendix is visualized and appears normal. There is scattered atherosclerotic calcification of the abdominal aorta, without a demonstrated aneurysm. Normal inferior vena cava. Normal retroperitoneum. Normal urinary bladder. There is a 3.5 cm x 5.1 cm septated cystic structure in the left adnexa. There is also evidence of a 2.2 cm x 1.8 cm cystic structure in the cul-de-sac. Pelvic sonographic correlation is recommended. Normal abdominal wall. Normal osseous structures. CT/Abdomen/Pelvis WITH Contrast IMPRESSION: Findings suggestive of varices in the region of the splenic hilum. Cystic structures seen in the cul-de-sac and in the left ovary. Correlation with ultrasound is recommended. Electronically Signed: Ry Lee MD at 9:51 EST Reading Location ID and State: [address] [address] , Service support , CC: BETZY Mann; Dr. Jose Luis Donnelly DO Industrial Paramedic: Signed Normal [facility] Oncology Visit Reporton Oncology Visit Report [facility] [address] [place] [address] OFFICE VISIT Date of Service: 08/27/24 1502 MR#: [id number] Acct: [id number] Name: ELLE VICENTE Rep #: [id number] : 1980 From: John Almanza MD Age/Sex: 44/F Location: [facility] Status: Signed HPI Subjective Date of Service 08/27/24 Chief Complaint Multiple lab abnormalities History of Present Illness 44-year-old female evaluated for GI issues (outside the scope of a hematology consultation) and had multiple lab abnormalities (see lab section) that I will address in the assessment and plan section of this consultation. Patient has no personal history of premature atherosclerotic arterial disease or venous thromboembolic disease. She is not aware whether she snores in her sleep or not. She reports easy bruising even before she started oral aspirin. No other abnormal bleeding. [facility] Medical History Easy bruising Anticardiolipin antibody positive Polycythemia Wears contact lenses Wears glasses Post-menopausal Arthritis Back pain History of diverticulitis Gastric reflux History of Holter monitoring History of echocardiogram History of stress test Cardiology follow-up encounter Hypokalemia Depression Anxiety Aortic atherosclerosis Obesity Varicose veins of left leg with edema Ocular migraine Mixed anxiety and depressive disorder Contact with or suspected exposure to other viral communicable disease Acute sinusitis Sinus congestion History of COVID-19 (04/20/22) COVID-19 Disequilibrium Chronic neck pain Other specified dorsopathies, cervical region Fatigue Low vitamin D level History of uterine fibroid Migraine headache Surgical History History of adenoidectomy History of partial hysterectomy Family History Mother Arthritis Heart disease Aunt Breast cancer Father Cancer Skin cancer Hypertension Hyperlipidemia Gilbert's disease Grandfather Cancer Skin cancer Gilbert's disease Grandmother Parkinson's disease Social History Smoking Status: Never smoker alcohol intake: former substance use type: does not use caffeine: No what type of physical activity do you participate in: walking and other details: 12,000 steps frequency: daily ROS Constitutional Constitutional: Reports systems reviewed and no addt'l complaints, except as documented Intake Vital Signs 04/02/24 11:09 08/27/24 15:03 08/27/24 15:07 Height 5 ft 5 in 5 ft 5 in 5 ft 5 in Weight: 89.074 kg BMI 32.6 BP 141/84 H Blood Pressure Location Lt brachial Position Sitting Respiration 16 Pulse 85 Pulse Source Monitor Temp 99.4 F H Temperature Source Temporal Artery Pulse Oximetry (%) 100 Oxygen Delivery Method room air Intake Is patient in pain?: No Allergies levofloxacin (From Levaquin) Allergy (Severe, Verified 08/27/24 15:04) rash Medications ???Medication ???Instructions ???Recorded ???Confirmed ???Type multivitamin 1 tab PO DAILY 01/01/15 08/27/24 History cholecalciferol (vitamin D3) 50 50 mcg PO DAILY 07/26/22 08/27/24 History mcg (2,000 unit) tablet rizatriptan 10 mg tablet 10 mg PO .COMPLEX #9 tabs 01/03/23 08/27/24 Rx topiramate 25 mg tablet 25 mg PO BID #60 tabs 01/03/23 08/27/24 Rx aspirin 81 mg tablet,delayed 81 mg PO DAILY initiated by PCP 01/04/23 08/27/24 History release (Adult Aspirin Regimen) folic acid 1 mg tablet 1 mg PO DAILY #30 tabs 06/26/24 08/27/24 Rx sulfasalazine 500 mg tablet 0.5 g PO BID #60 tabs 06/26/24 08/27/24 Rx Have you fallen in the past year?: No Central Venous Access Central Venous Access: No Laboratory Results 07/18/24 12/11/23 12/22/22 15:31 10:40 07:18 Hgb 15.3 H 15.7 H PT Diluted 35.1 Thrombin Time 16.0 Lupus Anticoag aPTT 39.6 Erythropoietin 5.8 Anti-Cardiolipin IgM Ab 17 H 01/05/22 10/19/21 10/18/19 09:34 14:54 15:45 Hgb 16.2 H 15.2 H 15.1 H PT Diluted Thrombin Time Lupus Anticoag aPTT Erythropoietin Anti-Cardiolipin IgM Ab Exam Physical Exam Narrative ECOG 0 Const alert, oriented x3 and healthy appearing Coding Level of Care Code Off vis,new,level 3 Exam Problem Focused Diagnoses Anticardiolipin antibody positive R76.0 Polycythemia D75.1 Easy bruising R23.3 Assessment and Plan Assessment and Plan (1) Anticardiolipin antibody positive: Status: Acute Comment: Nonsignificant elevation of IgM, no history of premature atherosclerotic arterial disease or venous thrombo-embolic disease does not meet criteria for APS. (2) Polycythem (more content not included)... Normal [facility] Atypical perinuclear antineu trophil cytoplasmic antibodies measurementOrdered By: Skyler Young on 12-11-2023 Neutrophil cytoplasmic Ab.perinuclear.atypical IF (S) [Titer] <1:20 titer Neg:<1:20 [facility] Comment on above: The atypical pANCA p attern has been observed in asignificant percentage of patients with ulcerative colitis,primary sclerosing cholangitis and autoimmune hepatitis. Basophil percentageOrdered B y: Skyler Young on 12-11-2023 LDH [Catalytic activity/Vol] 193 U/L 84-246 [facility] Erythrocyte sedimentation ra teOrdered By: Skyler Young on 12-11-2023 ESR (Bld) [Velocity] 10 mm/h 0-30 [facility] Immunoglobulin M measurement Ordered By: Skyler Young on 12-11-2023 IgM (U) [Mass/Vol] 228 mg/dL 26-217 [facility] Laboratory - Chemistry and C hemistry - challengeOrdered By: Skyler Young on 12-11-2023 Cobalamin (Vitamin B12) [Mass/Vol] 647 pg/mL 211-911 [facility] Free T4 [Mass/Vol] 0.95 ng/dL 0.76-1.46 [facility] No Panel InformationOrdered By: Skyler Young on 12-11-2023 Centromere B Antibody <0.2 AI 0.0-0.9 [facility] Endomysial IgA Antibody Negative Negative [facility] Free Triiodothyronine (T3) pg/dL 2.5 pg/mL 2.18-3.98 [facility] Immunoglobulin E 7 IU/mL 6-495 [facility] Immunoglobulin G4 15 mg/dL 2-96 [facility] FLORINDA-1 Antibody <0.2 AI 0.0-0.9 [facility] ELECTROPHONIC ENGINEER Antibody 0.2 AI 0.0-0.9 [facility] Thyroid Stimulating Hormone (TSH) 2.38 uIU/mL 0.358-3.74 [facility] SS-B IgG antibody assayOrder ed By: Skyler Young on 12-11-2023 Sjogrens syndrome-B extractable nuclear IgG Qn (S) < 0.2 AI 0.0-0.9 [facility] Serum DNA double strand anti body assay (units/volume)Ordered By: Skyler Young on 12-11-2023 DNA double strand Ab Qn (S) [IU]/mL 0-9 [facility] Comment on above: Negative <5 Equivoca l 5 - 9 Positive >9 Serum IgG subclass 1 measure ment (mass/volume)Ordered By: Skyler Young on 12-11-2023 IgG subclass 1 (S) [Mass/Vol] 689 mg/dL 248-810 [facility] Serum IgG subclass 2 measure ment (mass/volume)Ordered By: Skyler Young on 12-11-2023 IgG subclass 2 (S) [Mass/Vol] 459 mg/dL 130-555 [facility] Serum IgG subclass 3 measure ment (mass/volume)Ordered By: Skyler Young on 12-11-2023 IgG subclass 3 (S) [Mass/Vol] 37 mg/dL 15-102 [facility] Serum Scl-70 antibody assay (units/volume)Ordered By: Skyler Young on 12-11-2023 SCL-70 extractable nuclear Ab Qn (S) <0.2 AI 0.0-0.9 [facility] Serum classic neutrophil cyt oplasmic antibody assay (units/volume)Ordered By: Skyler Young on 12-11-2023 Neutrophil cytoplasmic Ab.classic Qn (S) <1:20 titer Neg:<1:20 [facility] Serum or plasma IgA measurem ent (mass/volume)Ordered By: Skylerconchita Young on 12-11-2023 IgA [Mass/Vol] 345 mg/dL 87-352 [facility] Serum or plasma IgG measurem ent (mass/volume)Ordered By: Skylerconchita Young on 12-11-2023 IgG [Mass/Vol] 1238 mg/dL 586-1602 [facility] IgG [Mass/Vol] Not Reportable [facility] Serum or plasma calcitriol m easurement (mass/volume)Ordered By: Skylergiovanni Young on 12-11-2023 1,25-dihydroxyvitamin D3 [Mass/Vol] 52.0 pg/mL 24.8-81.5 [facility] Comment on above: Performed at: [facility] [address] [id number] Director: Yuval Thornton PhD, Phone: [phone] at: [facility] [address] [id number] Director: Ene Alvarez MD, Phone: [phone] Serum or plasma erythropoiet in (EPO) measurement (units/volume)Ordered By: Skylre Young on 12-11-2023 Erythropoietin (EPO) Qn 5.8 mIU/mL 2.6-18.5 [facility] Comment on above: Hannah [place] UniC el DxI 800 Immunoassay SystemValues obtained with different assay methods or kits cannotbe used interchangeably. Results cannot be interpreted asabsolute evidence of the presence or absence of malignantdisease.Performed at: - [address] [id number] Director: Yuval Thornton PhD, Phone: [phone] at: [facility] [address] [id number] Director: Ene Alvarze MD, Phone: [phone] Serum or plasma ferritin tere surement (mass/volume)Ordered By: Skyler Young on 12-11-2023 Ferritin [Mass/Vol] 194 ng/mL 8-252 [facility] Serum perinuclear neutrophil cytoplasmic antibody titer by immunofluorescenceOrdered By: Skyler Young on 12-11-2023 Neutrophil cytoplasmic Ab.perinuclear IF (S) [Titer] <1:20 titer Neg:<1:20 [facility] Comment on above: The presence of posi tive fluorescence exhibiting P-ANCA orC-ANCA patterns alone is not specific for the diagnosis ofWegener's Granulomatosis (WG) or microscopic polyangiitis.Decisions about treatment should not be based solely onANCA IFA results. The International ANCA Group Consensusrecommends follow up testing of positive sera with both SD-3 and MPO-ANCA enzyme immunoassays. As many as 5% serumsamples are positive only by EIA. Ref. AM J Clin [id number];111:507-513. Serum tissue transglutaminas e IgA antibody assay (units/volume)Ordered By: Skyler Young on 12-11-2023 tTG IgA Qn (S) <2 U/mL 0-3 [facility] Comment on above: Negative 0 - 3 Weak Positive 4 - 10 Positive >10 Tissue Transglutaminase (tTG) has been identified as the endomysial antigen. Studies have demonstr- ated that endomysial IgA antibodies have over 99% specificity for gluten sensitive enteropathy. Benson antibody assayOrdered By: Skyler Young on 12-11-2023 Benson extractable nuclear Ab (S) [Titer] <0.2 AI 0.0-0.9 [facility] Gram stain for investigation of transfusion reactionOrdered By: Kaylen Leslie on 05-31-2023 Microscopic observation Gram stain Nom (Unsp spec) [facility] No Panel Informationon 05-31 POC Bacterial Vaginitis (Rapid) Negative [facility] Thin prep Papanicolaou smear with manual screeningOrdered By: Kaylen Leslie on 05-31-2023 Thin prep Papanicolaou smear with manual screening [facility] Absolute lymphocyte countOrd ered By: Dr. Donnelly on 12-22-2022 Lymphocytes Auto (Unsp spec) [#/Vol] 2.15 10*3/uL 0.83-4.51 [facility] Basophil percentageOrdered B y: Dr. Donnelly on 12-22-2022 Basophil percentage Not Reportable [facility] Basophils/100 WBC (Bld) 0.3 % 0-1 [facility] Cholesterol [Mass/Vol] 183 mg/dL <200 [facility] Comment on above: <200 mg/dL Desirable 200-240 mg/dL Borderline >240 mg/dL High Risk Eosinophils/100 WBC (Bld) 1.2 % 0-5 [facility] LDH [Catalytic activity/Vol] 164 U/L 84-246 [facility] Neutrophils (Bld) [#/Vol] 4.9 10*3/uL 2.0-7.7 [facility] Neutrophils/100 WBC (Bld) 64.4 % 47-70 [facility] Triglyceride [Mass/Vol] 123 mg/dL <199 [facility] Comment on above: The drugs N-Acetylcy steine and Metamizole may falsely depress this assay.Serum Triglycerides Reference Interval Normal <150 mg/dL Borderline high 150 - 199 mg/dL High 200 - 499 mg/dL Very High > or = 500 mg/dL WBC (Bld) [#/Vol] 7.5 10*3/uL 4.4-11.0 [facility] Blood erythrocytes count (nu mber/volume)Ordered By: Dr. Donnelly on 12-22-2022 RBC (Bld) [#/Vol] 5.21 10*6/uL 4.2-5.4 [facility] Blood hemoglobin measurement (mass/volume)Ordered By: Dr. Donnelly on 12-22-2022 Hemoglobin (Bld) [Mass/Vol] 15.7 g/dL 12.0-15. 0 [facility] Blood lymphocytes/100 leukoc ytesOrdered By: Dr. Donnelly on 12-22-2022 Lymphocytes/100 WBC (Bld) 28.6 % 19-41 [facility] Blood monocytes/100 leukocyt esOrdered By: Dr. Donnelly on 12-22-2022 Monocytes/100 WBC (Bld) 5.2 % 0-10 [facility] Blood platelet mean volumeOr dered By: Dr. Donnelly on 12-22-2022 Platelet mean volume (Bld) [Entitic vol] 11.2 fL 6.2-12.0 [facility] Determination of erythrocyte mean corpuscular volume (MCV)Ordered By: Dr. Donnelly on 12-22-2022 MCV (RBC) [Entitic vol] 91.7 fL 81-99 [facility] Erythrocyte sedimentation ra teOrdered By: Dr. Donnelly on 12-22-2022 ESR (Bld) [Velocity] 9 mm/h 0-30 [facility] Hematocrit Auto (Bld) [Volum e fraction]Ordered By: Dr. Donnelly on 12-22-2022 Hematocrit (Bld) [Volume fraction] 47.8 % 37-47 [facility] Laboratory - Hematology and Cell countsOrdered By: Dr. Donnelly on 12-22-2022 Erythrocyte distribution width (RBC) [Entitic vol] 40.6 fL 35.1-43.9 [facility] Erythrocyte distribution width (RBC) [Ratio] 12.1 % 11.6-14.6 [facility] Immature granulocytes/100 WBC (Bld) 0.300 % 0.0-0.9 [facility] Comment on above: IG% - Immature Granu locytes (promyelocytes, myelocytes and metamyelocytes) > 1% indicates that a LEFT SHIFT is Present. MCH (RBC) [Entitic mass] 30.1 pg 27.0-32.0 [facility] Nucleated RBC/100 WBC (Bld) [Ratio] 0 % 0-5 [facility] Auto (RBC) [Mass/Vol]Or dered By: Dr. Donnelly on 12-22-2022 MCHC (RBC) [Mass/Vol] 32.8 g/dL 32-36 [facility] No Panel InformationOrdered By: Dr. Donnelly on 12-22-2022 Anti-Nuclear Antibody Screen Negative Negative [facility] Comment on above: Performed at: [facility] [address] [id number] Director: Yuval Thornton PhD, Phone: [phone] Centromere B Antibody Not Reportable [facility] ELECTROPHONIC ENGINEER Antibody Not Reportable [facility] Platelets bldOrdered By: Dr. Donnelly on 12-22-2022 Platelets (Bld) [#/Vol] 231 10*3/uL 150-450 [facility] Serum DNA double strand anti body assay (units/volume)Ordered By: Dr. Donnelly on 12-22-2022 DNA double strand Ab Qn (S) Not Reportable [facility] Serum Florinda-1 antibody assay (u nits/volume)Ordered By: Dr. Donnelly on 12-22-2022 Florinda-1 extractable nuclear Ab Qn (S) Not Reportable [facility] Serum Scl-70 extractable nuc lear antibody assay (units/volume)Ordered By: Dr. Donnelly on 12-22-2022 SCL-70 extractable nuclear Ab Qn (S) Not Reportable [facility] Serum Benson extractable nucl ear antibody detectionOrdered By: Dr. Donnelly on 12-22-2022 Benson extractable nuclear Ab Ql (S) Not Reportable [facility] Serum or plasma C reactive p rotein measurement (mass/volume)Ordered By: Dr. Dnonelly on 12-22-2022 CRP [Mass/Vol] mg/L 0.0-3.0 [facility] Comment on above: C-Reactive Protein ( CRP) provides useful information for thediagnosis, therapy and monitoring of inflammatory processesand associated diseases. For the evaluation of Relative Riskfor Cardiovascular Disease, a High Sensitivity CRP (HSCRP)should be ordered. Serum or plasma cholesterol in HDL measurement (mass/volume)Ordered By: Dr. Donnelly on 12-22-2022 Cholesterol in HDL [Mass/Vol] 58 mg/dL >40 [facility] Comment on above: The drugs N-Acetylcy steine and Metamizole may falsely depress this assay. Reference Range HDL <40 mg/dL Low HDL Cholesterol HDL >or= 60 mg/dL High HDL Cholesterol Serum or plasma cholesterol in VLDL measurement (mass/volume)Ordered By: Dr. Donnelly on 12-22-2022 Cholesterol in VLDL [Mass/Vol] 25 mg/dL 5-40 [facility] Serum or plasma low density lipoprotein (LDL) cholesterol measurement (mass/volume)Ordered By: Dr. Donnelly on 12-22-2022 Cholesterol in LDL [Mass/Vol] 100 mg/dL 0-130 [facility] Absolute lymphocyte countOrd ered By: Dr. Donnelly on 11-29-2022 Lymphocytes Auto (Unsp spec) [#/Vol] 1.64 10*3/uL 0.83-4.51 [facility] Basophil percentageOrdered B y: Dr. Donnelly on 11-29-2022 Basophils/100 WBC (Bld) 0.2 % 0-1 [facility] Bilirubin [Mass/Vol] 2.10 mg/dL 0.20-1.00 [facility] Comment on above: For patients on eltr ombopag therapy, use of Dimension [place] TBIL is not recommended. Chloride [Moles/Vol] 105 mmol/L 98-107 [facility] Eosinophils/100 WBC (Bld) 0.3 % 0-5 [facility] Glucose [Mass/Vol] 86 mg/dL 74-106 [facility] Neutrophils (Bld) [#/Vol] 10.2 10*3/uL 2.0-7.7 [facility] Neutrophils/100 WBC (Bld) 83.2 % 47-70 [facility] Potassium [Moles/Vol] 4.0 mmol/L 3.5-5.1 [facility] Protein [Mass/Vol] 7.9 g/dL 6.4-8.2 [facility] Sodium [Moles/Vol] 138 mmol/L 136-145 [facility] WBC (Bld) [#/Vol] 12.3 10*3/uL 4.4-11.0 [facility] Bilirubin Test strip Ql (U)O rdered By: Dr. Donnelly on 11-29-2022 Bilirubin Ql (U) Negative Negative [facility] Blood erythrocytes count (nu mber/volume)Ordered By: Dr. Donnelly on 11-29-2022 RBC (Bld) [#/Vol] 5.42 10*6/uL 4.2-5.4 [facility] Blood hemoglobin measurement (mass/volume)Ordered By: Dr. Donnelly on 11-29-2022 Hemoglobin (Bld) [Mass/Vol] 16.2 g/dL 12.0-15. 0 [facility] Blood lymphocytes/100 leukoc ytesOrdered By: Dr. Donnelly on 11-29-2022 Lymphocytes/100 WBC (Bld) 13.3 % 19-41 [facility] Blood monocytes/100 leukocyt esOrdered By: Dr. Donnelly on 11-29-2022 Monocytes/100 WBC (Bld) 2.8 % 0-10 [facility] Blood platelet mean volumeOr dered By: Dr. Donnelly on 11-29-2022 Platelet mean volume (Bld) [Entitic vol] 10.2 fL 6.2-12.0 [facility] Determination of erythrocyte mean corpuscular volume (MCV)Ordered By: Dr. Donnelly on 11-29-2022 MCV (RBC) [Entitic vol] 90.8 fL 81-99 [facility] Hematocrit Auto (Bld) [Volum e fraction]Ordered By: Dr. Donnelly on 11-29-2022 Hematocrit (Bld) [Volume fraction] 49.2 % 37-47 [facility] Ketones Test strip Ql (U)Ord ered By: Dr. Donnelly on 11-29-2022 Ketones Ql (U) Negative Negative [facility] Laboratory - Chemistry and C hemistry - challengeOrdered By: Dr. Donnelly on 11-29-2022 ALP [Catalytic activity/Vol] 73 U/L 45-117 [facility] ALT [Catalytic activity/Vol] 30 U/L 13-56 [facility] CO2 [Moles/Vol] 26.0 mmol/L 21.0-32.0 [facility] Free T4 [Mass/Vol] 1.07 ng/dL 0.76-1.46 [facility] Globulin (S) [Mass/Vol] 3.5 g/dL 2.2-4.2 [facility] Urea nitrogen/Creatinine [Mass ratio] 14.1 mg/mg 10-20 [facility] Laboratory - Hematology and Cell countsOrdered By: Dr. Donnelly on 11-29-2022 Erythrocyte distribution width (RBC) [Entitic vol] 39.8 fL 35.1-43.9 [facility] Erythrocyte distribution width (RBC) [Ratio] 11.9 % 11.6-14.6 [facility] Immature granulocytes/100 WBC (Bld) 0.200 % 0.0-0.9 [facility] Comment on above: IG% - Immature Granu locytes (promyelocytes, myelocytes and metamyelocytes) > 1% indicates that a LEFT SHIFT is Present. MCH (RBC) [Entitic mass] 29.9 pg 27.0-32.0 [facility] Nucleated RBC/100 WBC (Bld) [Ratio] 0 % 0-5 [facility] MCHC Auto (RBC) [Mass/Vol]Or dered By: Dr. Donnelly on 11-29-2022 MCHC (RBC) [Mass/Vol] 32.9 g/dL 32-36 [facility] Nitrite Test strip Ql (U)Ord ered By: Dr. Donnelly on 11-29-2022 Nitrite Ql (U) Negative Negative [facility] No Panel InformationOrdered By: Dr. Donnelly on 11-29-2022 Estimated GFR (MDRD) Amer 95 mL/min >60 [facility] Comment on above: GFR Calc Estimated GFR (MDRD) Non-Af Amer 79 mL/min >60 [facility] Comment on above: Non- GFR Calc Thyroid Stimulating Hormone (TSH) 2.06 uIU/mL 0.358-3.74 [facility] Platelets bldOrdered By: Dr. Donnelly on 11-29-2022 Platelets (Bld) [#/Vol] 225 10*3/uL 150-450 [facility] Protein Test strip Ql (U)Ord ered By: Dr. Donnelly on 11-29-2022 Protein Ql (U) Negative Negative [facility] Serum or plasma albumin mellisa urement (mass/volume)Ordered By: Dr. Donnelly on 11-29-2022 Albumin [Mass/Vol] 4.4 g/dL 3.2-5.0 [facility] Serum or plasma albumin/glob ulin mass ratioOrdered By: Dr. Donnelly on 11-29-2022 Albumin/Globulin [Mass ratio] 1.3 {ratio} 0.9-2.4 [facility] Serum or plasma calcium mellisa urement (mass/volume)Ordered By: Dr. Donnelly on 11-29-2022 Calcium [Mass/Vol] 10.0 mg/dL 8.5-10.1 [facility] Serum or plasma creatinine m easurement (mass/volume)Ordered By: Dr. Donnelly on 11-29-2022 Creatinine [Mass/Vol] 0.85 mg/dL 0.55-1.02 [facility] Comment on above: The validity of the calculated GFR & GFRAA in patients over 70 years has not been determined. Clinical correlation is essential. Serum or plasma urea nitroge n measurement (mass/volume)Ordered By: Dr. Donnelly on 11-29-2022 Urea nitrogen [Mass/Vol] 12 mg/dL 7-18 [facility] Thin prep Papanicolaou smear with manual screeningOrdered By: Dr. Donnelly on 11-29-2022 Thin prep Papanicolaou smear with manual screening 13 U/L 15-37 [facility] Thin prep Papanicolaou smear with manual screening 7 5-15 [facility] Urine blood detectionOrdered By: Dr. Donnelly on 11-29-2022 RBC Ql (U) Negative Negative [facility] Urine clarityOrdered By: Dr. Donnelly on 11-29-2022 Clarity (U) Clear Clear [facility] Urine color determinationOrd ered By: Dr. Donnelly on 11-29-2022 Color (U) Yellow Yellow [facility] Urine glucose detectionOrder ed By: Dr. Donnelly on 11-29-2022 Glucose Ql (U) Normal mg/dl Normal [facility] Urine leukocyte esterase det ection by dipstickOrdered By: Dr. Donnelly on 11-29-2022 Leukocyte esterase Test strip Ql (U) Negative Negative [facility] Urine pHOrdered By: Dr. Jose livingston on 11-29-2022 pH (U) 7.0 [pH] 5.0 - 8.0 [facility] Urine specific gravity measu rementOrdered By: Dr. Donnelly on 11-29-2022 Specific gravity (U) [Rel density] 1.010 1.002-1.030 [facility] Urobilinogen Auto test strip Ql (U)Ordered By: Dr. Donnelly on 11-29-2022 Urobilinogen Ql (U) Normal mg/dl Normal [facility] Basophil percentageon 2021 Chloride [Moles/Vol] 105 mmol/L 98-107 [facility] Work Phone: Glucose [Mass/Vol] 93 mg/dL 74-106 [facility] Work Phone: Potassium [Moles/Vol] 3.8 mmol/L 3.5-5.1 [facility] Work Phone: Sodium [Moles/Vol] 138 mmol/L 136-145 [facility] Work Phone: Laboratory - Chemistry and C hemistry - challengeon 08-23-2022 CO2 [Moles/Vol] 25.0 mmol/L 21.0-32.0 [facility] Work Phone: Urea nitrogen/Creatinine [Mass ratio] 14.3 mg/mg 10-20 [facility] Work Phone: No Panel Informationon 08-23 Estimated GFR (MDRD) Amer 81 mL/min >60 [facility] Work Phone: Comment on above: GFR Calc Estimated GFR (MDRD) Non-Af Amer 67 mL/min >60 [facility] Work Phone: Comment on above: Non- GFR Calc Thyroid Stimulating Hormone (TSH) 1.79 uIU/mL 0.358-3.74 [facility] Work Phone: Serum or plasma calcium mellisa urement (mass/volume)on 08-23-2022 Calcium [Mass/Vol] 9.4 mg/dL 8.5-10.1 [facility] Work Phone: Serum or plasma creatinine m easurement (mass/volume)on 08-23-2022 Creatinine [Mass/Vol] 0.98 mg/dL 0.55-1.02 [facility] Work Phone: Comment on above: The validity of the calculated GFR & GFRAA in patients over 70 years has not been determined. Clinical correlation is essential. Serum or plasma urea nitroge n measurement (mass/volume)on 08-23-2022 Urea nitrogen [Mass/Vol] 14 mg/dL 7-18 [facility] Work Phone: Thin prep Papanicolaou smear with manual screeningon 08-23-2022 Thin prep Papanicolaou smear with manual screening 8 5-15 [facility] Work Phone: No Panel Informationon 07-04 POC SARS CoV-[address] [facility] Work Phone: CNOVon 06-28-2022 CNOV Office Visit (VASSWS ) ELLE VICENTE ([id number]) 1980 F Date Time Provider Department 06/28/22 11:00 AM RENETTA MCCANN VASSWS During your visit today, we recorded the following information about you: Pulse Blood pressure Weight 75/minute 138/85 83.9 kg Renetta Mccann DO 06/29/2022 1:34 PM Unsigned Facilities Custodian NAME: [facility] NO: [id number] DATE OF SERVICE: 06/28/2022 Subjective: Elle is here to follow up on left [...] Assessment/Plan: Symptomatic varicose veins. Would recommend that Elle would benefit from a left greater saphenous and anterior branch endovenous laser ablation, as symptoms have persisted despite nonintervention therapy and are beginning to impact day-to-day activities. Reviewed the risks, benefits and alternatives and she is agreeable. We will have the office arrange and schedule. Renetta Mccann D.O. KB/089 Audio #: [id number] Date Dictated: 06/28/2022 09:07:14 Date Typed: 06/29/2022 13:31:10 Date Revised: Renetta Mccann DO 06/29/2022 2:12 PM Signed This office note has been dictated. Renetta Mccann DO' Facilities Custodian: Transcribed Clinic Note (pradip) ID: [id number] Author: RENETTA MCCANN * * * This document has not been signed * * * * * * DRAFT COPY. THIS DOCUMENT IS NOT AVAILABLE FOR PATIENT CARE * * * Document text: NAME: ELLE VICENTE [facility]INIC NO: [id number] DATE OF SERVICE: 06/28/2022 Subjective: Elle is here to follow up on left [...] Assessment/Plan: Symptomatic varicose veins. Would recommend that Elle would benefit from a left greater saphenous and anterior branch endovenous laser ablation, as symptoms have persisted despite nonintervention therapy and are beginning to impact day-to-day activities. Reviewed the risks, benefits and alternatives and she is agreeable. We will have the office arrange and schedule. Renetta Mccann D.O. KB/089 Audio #: [id number] Date Dictated: 06/28/2022 09:07:14 Date Typed: 06/29/2022 13:31:10 Date Revised: ----- Referring Provider: RENETTA MCCANN [[id number]] Allergies As of Date: 06/28/2022 Noted Allergy Reaction LEVOFLOXACIN 03/11/2021 2 - Rash Date Reviewed: 06/28/2022 Reviewed by: Brenda Villagomez RN - Fully Assessed Reason for Visit: Follow Up [171] Primary Visit Diagnosis:Symptomatic varicose veins of left lower extremity [I83.892] Order(s):COMPRESSION STOCKINGS [0813065] Order #: [id number] Prescriptions as of 06/29/2022 - Lactobacillus acidophilus (PROBIOTIC ORAL) Take 2 tablets by mouth. 2 gummies 500 mil CFU - baclofen (LIORESAL) 10 mg tablet Take 10 mg by mouth every 8 hours as needed. - Cholecalciferol, Vitamin D3, 25 mcg (1,000 unit) cap Take 1 capsule by mouth once daily. - topiramate (TOPAMAX) 25 mg tablet Take 25 mg by mouth once daily. - rizatriptan (MAXALT) 10 mg tablet TAKE 1 TABLET BY MOUTH EVERY 2 HOURS UP TO 3 TABLETS DAILY NEEDED FOR HEADACHE - MULTI-VITAMIN ORAL Take by mouth. Problem List As Of Date: 06/28/2022 (None) Encounter Status:Closed by RENETTA MCCANN on 06/29/22 [facility] VENOUS INCOMPETENCY UNL V LABon 06-28-2022 VENOUS INCOMPETENCY UNL VAS LAB Non-Invasive Vascular Laboratory [facility] Venous Valvular Incompetency Unilateral - Left Date of service/time: 06/28/2022 9:54:15 AM Name: MRS. ELLE VICENTE Date of : 1980 Age: 41 years Gender: F Clinical Indication Chronic venous insufficiency and varicose veins. TECHNIQUE -------- A venous duplex ultrasound examination was performed, including grayscale imaging with compression maneuvers and color Doppler and spectral Doppler examination with augmentation maneuvers and response to respiration of the below mentioned veins. FINDINGS -------- RIGHT SIDE Common femoral vein Doppler: normal flow. LEFT SIDE Method of augmentation: manual. Common femoral vein Doppler: normal flow. Compression: normal. Femoral vein Doppler: normal flow. Compression: normal. Popliteal vein Doppler: normal flow. Compression: normal. Great saphenous vein Compression: normal. Small saphenous vein Compression: normal. LEFT GREAT SAPHENOUS VEIN Saphenofemoral junction Valsalva reflux greater than or equal to 0.5 second. Size 1.00 cm. Proximal thigh Valsalva reflux greater than or equal to 0.5 second. Size 0.44 cm. Mid thigh Valsalva reflux greater than or equal to 0.5 second. Size 0.44 cm. Distal thigh Valsalva reflux greater than or equal to 0.5 second. Size 0.60 cm. At Knee Valsalva reflux greater than or equal to 0.5 second. Size 0.46 cm. Proximal calf Valsalva reflux greater than or equal to 0.5 second. Size 0.35 cm. Mid calf Valsalva reflux greater than or equal to 0.5 second. Size 0.29 cm. Distal calf Valsalva reflux greater than or equal to 0.5 second. Size 0.24 cm. LEFT SMALL SAPHENOUS VEIN Saphenopopliteal junction Augmentation reflux none. Size 0.31 cm. Proximal calf Augmentation reflux greater than or equal to 0.5 second. Size 0.24 cm. Mid calf Augmentation reflux none. Size 0.24 cm. Distal calf Augmentation reflux none. Size 0.27 cm. LEFT ANTERIOR ACCESSORY GREAT SAPHENOUS VEIN Saphenous junction Augmentation reflux none. Valsalva reflux none. Size 0.41 cm. Proximal thigh Valsalva reflux greater than or equal to 0.5 second. Size 0.28 cm. Mid thigh Valsalva reflux greater than or equal to 0.5 second. IMPRESSION RIGHT SIDE - DEEP VEINS Spontaneous and respirophasic flow noted in the common femoral vein. LEFT SIDE - DEEP VEINS Negative for acute deep vein thrombosis in vessels visualized. No defined mass, fluid or vascularity posterior proximal thigh at area of swelling. LEFT SIDE - SUPERFICIAL VEINS Positive for valvular incompetency in the great saphenous vein. Varicosities noted just distal to knee to proximal calf. Positive for valvular incompetency in the anterior accessory great saphenous vein. Varicosities anterior mid thigh coursing to lateral distal thigh. Positive for valvular incompetency in the small saphenous vein. Reflux proximal calf only. Technologist: Cris Arnett RVT, [facility] Ordering physician: RENETTA MCCANN Interpreting physician: CRISTIN Alberts DO Final [employer] Medical Image : [id number] [id number] See Link below for Image Normal [facility] CNOVon 06-14-2022 CNOV Office Visit (VASSWS ) ELLE VICENTE ([id number]) 1980 F Date Time Provider Department 06/14/22 8:00 AM RENETTA MCCANN During your visit today, we recorded the following information about you: Pulse Blood pressure Weight Height 80/minute 126/87 82.6 kg 1.651 m Renetta Mccann DO 06/14/2022 9:41 AM Signed [facility] Thor[facility] [place] DEPARTMENT OF VASCULAR SURGERY OUTPATIENT VISIT DATE [...] recent labs Most recent imaging IMPRESSION: Ms. Vicente is a 41 year old female with left lower extremity edema, varicose veins . PLAN and RECOMMENDATIONS: Will get venous reflux testing Discussed etiology of edema may be multifactorial and she may lipedema of left proximal thigh Follow up testing to review results and options Continue walking and exercise as tolerated SIGNATURE: Renetta Mccann DO PATIENT NAME: Elle Vicente DATE: June 14, 2022 TIME: 8:09 AM Referring Provider: SELF [200] Allergies As of Date: (more content not included)... Normal [facility] No Panel Informationon 04-20 POC SARS CoV-[address] [facility] Work Phone: CNOVon 04-18-2022 CNOV Office Visit (UCWSTR ) ELLE VICENTE ([id number]) 1980 F Date Time Provider Department 04/18/22 7:15 AM GEOVANY DUTTA [facility] During your visit today, we recorded the following information about you: Temperature Pulse Respiration Blood pressure 98.6 degrees 94/minute 16/minute 124/80 Weight 83.5 kg Geovany Dutta MD 04/18/2022 7:41 AM Signed Patient presents with: Sore Throat: right ear [...] severe. - 2019 CORONAVIRUS Geovany Dutta MD Referring Provider: SELF [200] Allergies As of Date: 04/18/2022 (No Known Allergies) Date Reviewed: 04/18/2022 Reviewed by: Joanne Ramos - Fully Assessed Reason for Visit: Sore Throat [200] Cmt: right ear pain x 5 days Primary Visit Diagnosis:Sore throat [J02.9] Order(s):STREP A MOLECULAR (POC) [2263387] Order #: [id number]. #:[id number] 2019 CORONAVIRUS [SQCOVID] Order #: [id number] FUTURE 2019 CORONAVIRUS [SQCOVID] Order #: [id number]. #:[id number] Prescriptions as of 04/18/2022 - baclofen (LIORESAL) 10 mg tablet Take [...] 3 TABLETS DAILY NEEDED FOR HEADACHE - loratadine (CLARITIN) 10 mg tablet Take 10 mg by mouth once daily. - MULTI-VITAMIN ORAL Take by mouth. Problem List As Of Date: 04/18/2022 (None) Medications Discontinued During This Encounter Prescriptions - meclizine (ANTIVERT) 25 mg tab (Discontinued) Reported on 11/10/2021 - tiZANidine (ZANAFLEX) 2 mg tablet (Discontinued) Reported on 11/10/2021 - SUMAtriptan (IMITREX) 50 mg tablet (Discontinued) TAKE 1 TABLET BY ORAL ROUTE EVERY 2 HOURS NO MORE THAN 2 IN 24 HOURS. Encounter Status:Closed by GEOVANY DUTTA on 04/18/22 Normal [facility] SARS-CoV-2 RNA Resp Ql VANNESSA+p robeon 04-18-2022 SARS-CoV-2 (COVID-19) RNA VANNESSA+probe Ql (Resp) COVID 19 RESULT: SARS-CoV-2 (Agent of COVID-19) Not Detected by RT-PCR or equivalent method. This test was developed and its performance characteristics determined by [facility]'s [facility] Pathology and Laboratory Medicine [place]. This test has been authorized by FDA under an Emergency Use Authorization (EUA). This test has been validated in accordance with the FDA's Guidance Document "Policy for Diagnostics Testing in Laboratories Certified to Perform High Complexity Testing under CLIA prior to Emergency use Authorization for Coronavirus Disease 2019 during the Public Health Emergency" issued on January 25, 2020. Test performed by [facility], [facility] Pathology and Laboratory Medicine [place], [address] [place] [address]. Normal [facility] Comment on above: Performed By: #### [id number] #### [facility] CLIA [id number] [address] [place] [address] [place] STREP A MOLECULAR (POC)on Procedural Control Valid [facility] Strep A (POCT) Negative Negative [facility] CNOVon 11-10-2021 CNOV Office Visit (UCWSTR ) RUPAELLE TIMMONS ([id number]) 1980 F Date Time Provider Department 11/10/21 2:45 PM REGGIE HUGGINS UCWSTR During your visit today, we recorded the following information about you: Temperature Pulse Respiration Blood pressure 98.7 degrees 97/minute 16/minute 124/86 Weight 85.5 kg Reggie Huggins, TEST FACILITY ENGINEER.PLASTICS WORKER 11/10/2021 4:12 PM Signed Subjective HPI Nontoxic-appearing female presents urgent care [...] DVT. Suspicious of lymphedema. Treat conservatively. Red (more content not included)... Normal [facility] Vital Signs Date Time Vital Sign Value Performing Clinician Faci lity 01-29-2025 08:06-0500 Body height 165.[address] Jose Luis Donnelly DO Work Phone: [facility] 01-29-2025 08:04-0500 Body mass index (BMI) [Ratio] 33 kg/m2 Dr. Jose Luis Donnelly DO Work Phone: [facility] 01-29-2025 08:04-0500 Body weight 89.[address] Jose Luis Donnelly DO Work Phone: [facility] 01-29-2025 08:04-0500 Diastolic blood pressure 89 mm[Hg] Dr. Jose Luis Donnelly DO Work Phone: [facility] 01-29-2025 08:04-0500 Systolic blood pressure 124 mm[Hg] Dr. Jose Luis Donnelly DO Work Phone: [facility] 11-26-2024 08:38-0500 Body temperature 98.4 [degF] Dr. Jose Luis Donnelly DO Work Phone: [facility] 11-26-2024 08:38-0500 Body weight 87.[address] Jose Luis Donnelly DO Work Phone: [facility] 11-26-2024 08:38-0500 Diastolic blood pressure 89 mm[Hg] Dr. Jose Luis Donnelly DO Work Phone: [facility] 11-26-2024 08:38-0500 Heart rate 79 /min Dr. Jose Luis Donnelly DO Work Phone: [facility] 11-26-2024 08:38-0500 Respiratory rate 16 /min Dr. Jose Luis Donnelly DO Work Phone: [facility] 11-26-2024 08:38-0500 SaO2% (BldA) [Mass fraction] 99 % Dr. Jose Luis Donnelly DO Work Phone: [facility] 11-26-2024 08:38-0500 Systolic blood pressure 126 mm[Hg] Dr. Jose Luis Donnelly DO Work Phone: [facility] 04-02-2024 13:20-0400 Body temperature 98.4 [degF] Dr. Jose Luis Donnelly Work Phone: [facility] 04-02-2024 13:20-0400 Diastolic blood pressure 81 mm[Hg] Dr. Jose Luis Donnelly Work Phone: [facility] 04-02-2024 13:20-0400 Heart rate 85 /min Dr. Jose Luis Donnelly Work Phone: [facility] 04-02-2024 13:20-0400 Respiratory rate 16 /min Dr. Jose Luis Donnelly Work Phone: [facility] 04-02-2024 13:20-0400 SaO2% (BldA) [Mass fraction] 100 % Dr. Jose Luis Donnelly Work Phone: [facility] 04-02-2024 13:20-0400 Systolic blood pressure 120 mm[Hg] Dr. Jose Luis Donnelly Work Phone: [facility] 04-02-2024 11:09-0400 Body height 165.[address] Jose Luis Donnelly Work Phone: [facility] 04-02-2024 11:09-0400 Body mass index (BMI) [Ratio] 31.8 kg/m2 Dr. Jose Luis Donnelly Work Phone: [facility] 04-02-2024 11:09-0400 Body weight [address] Jose Luis Donnelly Work Phone: [facility] 12-26-2023 08:16-0500 Body height 165.[address] Jose Luis Donnelly Work Phone: [facility] 12-26-2023 08:13-0500 Body mass index (BMI) [Ratio] 33.4 kg/m2 Dr. Jose Luis Donnelly Work Phone: [facility] 12-26-2023 08:13-0500 Body weight 91.[address] Jose Luis Donnelly Work Phone: [facility] 12-26-2023 08:13-0500 Diastolic blood pressure 87 mm[Hg] Dr. Jose Luis Donnelly Work Phone: [facility] 12-26-2023 08:13-0500 Systolic blood pressure 120 mm[Hg] Dr. Jose Luis Donnelly Work Phone: [facility] 05-31-2023 09:25-0400 Body height 165.[address] Jose Luis Donnelly Work Phone: [facility] 05-31-2023 09:25-0400 Body mass index (BMI) [Ratio] 32.5 kg/m2 Dr. Jose Luis Donnelly Work Phone: [facility] 05-31-2023 09:25-0400 Body weight 88.[address] Jose Luis Donnelly Work Phone: [facility] 05-31-2023 09:25-0400 Diastolic blood pressure 82 mm[Hg] Dr. Jose Luis Donnelly Work Phone: [facility] 05-31-2023 09:25-0400 Systolic blood pressure 128 mm[Hg] Dr. Jose Luis Donnelly Work Phone: [facility] 01-03-2023 08:04-0500 Body mass index (BMI) [Ratio] 33 kg/m2 Dr. Sánchez Lopez Work Phone: [facility] 01-03-2023 08:04-0500 Body temperature 98.6 [degF] Dr. Sánchez Lopez Work Phone: [facility] 01-03-2023 08:04-0500 Body weight 90.[address] Sánchez Lopez Work Phone: [facility] 01-03-2023 08:04-0500 Diastolic blood pressure 82 mm[Hg] Dr. Sánchez Lopez Work Phone: [facility] 01-03-2023 08:04-0500 Heart rate 104 /min Dr. Sánchez Lopez Work Phone: [facility] 01-03-2023 08:04-0500 Respiratory rate 16 /min Dr. Sánchez Lopez Work Phone: [facility] 01-03-2023 08:04-0500 SaO2% (BldA) [Mass fraction] 99 % Dr. Sánchez Lopez Work Phone: [facility] 01-03-2023 08:04-0500 Systolic blood pressure 130 mm[Hg] Dr. Sánchez Lopez Work Phone: [facility] 12-14-2022 15:05-0500 Body height 165.[address] Sánchez Lopez Work Phone: [facility] 12-14-2022 15:05-0500 Body mass index (BMI) [Ratio] 33 kg/m2 Dr. Sánchez Lopez Work Phone: [facility] 12-14-2022 15:05-0500 Body weight 90.[address] Sánchez Lopez Work Phone: [facility] 12-14-2022 15:05-0500 Diastolic blood pressure 85 mm[Hg] Dr. Sánchez Lopez Work Phone: [facility] 12-14-2022 15:05-0500 Systolic blood pressure 129 mm[Hg] Dr. Sánchez Lopez Work Phone: [facility] 09-29-2022 13:38-0400 Body height 165.[address] Sánchez Lopez Work Phone: [facility] Work Phone: 09-29-2022 13:37-0400 Body mass index (BMI) [Ratio] 32.5 kg/m2 Dr. Sánchez Lopez Work Phone: [facility] 09-29-2022 13:37-0400 Body weight 88.[address] Sánchez Lopez Work Phone: [facility] 09-29-2022 13:37-0400 Diastolic blood pressure 88 mm[Hg] Dr. Sánchez Lopez Work Phone: [facility] 09-29-2022 13:37-0400 Systolic blood pressure 125 mm[Hg] Dr. Sánchez Lopez Work Phone: [facility] 08-16-2022 14:02-0400 Diastolic blood pressure 86 mm[Hg] Dr. Sánchez Lopez Work Phone: [facility] Work Phone: 08-16-2022 14:02-0400 Heart rate 95 /min Dr. Sánchez Lopez Work Phone: [facility] Work Phone: 08-16-2022 14:02-0400 Systolic blood pressure 128 mm[Hg] Dr. Sánchez Lopez Work Phone: [facility] Work Phone: 08-16-2022 10:56-0400 Body height 165.[address] Sánchez Lopez Work Phone: [facility] Work Phone: 08-16-2022 10:56-0400 Body mass index (BMI) [Ratio] 31.6 kg/m2 Dr. Sánchez Lopez Work Phone: [facility] Work Phone: 08-16-2022 10:56-0400 Body temperature 98.6 [degF] Dr. Sánchez Lopez Work Phone: [facility] Work Phone: 08-16-2022 10:56-0400 Body weight 86.[address] Sánchez Lopez Work Phone: [facility] Work Phone: 08-16-2022 10:56-0400 Respiratory rate 18 /min Dr. Sánchez Lopez Work Phone: [facility] Work Phone: 08-16-2022 10:56-0400 SaO2% (BldA) [Mass fraction] 98 % Dr. Sánchez Lopez Work Phone: [facility] Work Phone: 08-05-2022 13:27-0400 Body height 165.[address] Sánchez Lopez Work Phone: [facility] Work Phone: 08-05-2022 13:27-0400 Body mass index (BMI) [Ratio] 31.9 kg/m2 Dr. Sánchez Lopez Work Phone: [facility] Work Phone: 08-05-2022 13:27-0400 Body weight 87.[address] Sánchez Lopez Work Phone: [facility] Work Phone: 08-05-2022 13:27-0400 Diastolic blood pressure 87 mm[Hg] Dr. Sánchez Lopez Work Phone: [facility] Work Phone: 08-05-2022 13:27-0400 Heart rate 74 /min Dr. Sánchez Lopez Work Phone: [facility] Work Phone: 08-05-2022 13:27-0400 Respiratory rate 16 /min Dr. Sánchez Lopez Work Phone: [facility] Work Phone: 08-05-2022 13:27-0400 SaO2% (BldA) [Mass fraction] 99 % Dr. Sánchez Lopez Work Phone: [facility] Work Phone: 08-05-2022 13:27-0400 Systolic blood pressure 137 mm[Hg] Dr. Sánchez Lopez Work Phone: [facility] Work Phone: 07-04-2022 10:24-0400 Body mass index (BMI) [Ratio] 30.4 kg/m2 Dr. Sánchez Lopez Work Phone: [facility] Work Phone: 07-04-2022 10:24-0400 Body temperature 97.5 [degF] Dr. Sánchez Lopez Work Phone: [facility] Work Phone: 07-04-2022 10:24-0400 Body weight 83.[address] Sánchez Lopez Work Phone: [facility] Work Phone: 07-04-2022 10:24-0400 Diastolic blood pressure 84 mm[Hg] Dr. Sánchez Lopez Work Phone: [facility] Work Phone: 07-04-2022 10:24-0400 Heart rate 72 /min Dr. Sánchez Lopez Work Phone: [facility] Work Phone: 07-04-2022 10:24-0400 Respiratory rate 14 /min Dr. Sánchez Lopez Work Phone: [facility] Work Phone: 07-04-2022 10:24-0400 SaO2% (BldA) [Mass fraction] 99 % Dr. Sánchez Lopez Work Phone: [facility] Work Phone: 07-04-2022 10:24-0400 Systolic blood pressure 126 mm[Hg] Dr. Sánchez Lopez Work Phone: [facility] Work Phone: 06-28-2022 10:39-0400 Body weight 83.92 kg Renetta Mccann DO Work Phone: [facility] 06-28-2022 10:39-0400 Diastolic blood pressure 85 mm[Hg] Renetta Mccann DO Work Phone: [facility] 06-28-2022 10:39-0400 Heart rate 75 /min Renetta Mccann DO Work Phone: [facility] 06-28-2022 10:39-0400 SaO2% (BldA) [Mass fraction] 100 % Renetta Mccann DO Work Phone: [facility] 06-28-2022 10:39-0400 Systolic blood pressure 138 mm[Hg] Renetta Mccann DO Work Phone: [facility] 06-14-2022 08:08-0400 Body height 165.1 cm Renetta Mccann DO Work Phone: [facility] 06-14-2022 08:08-0400 Body weight 82.56 kg Renetta Mccann DO Work Phone: [facility] 06-14-2022 08:08-0400 Diastolic blood pressure 87 mm[Hg] Renetta Mccann DO Work Phone: [facility] 06-14-2022 08:08-0400 Heart rate 80 /min Renetta Mccann DO Work Phone: [facility] 06-14-2022 08:08-0400 SaO2% (BldA) [Mass fraction] 99 % Renetta Mccann DO Work Phone: [facility] 06-14-2022 08:08-0400 Systolic blood pressure 126 mm[Hg] Renetta Mccann DO Work Phone: [facility] 04-20-2022 14:43-0400 Body mass index (BMI) [Ratio] 30.1 kg/m2 Dr. Sánchez Lopez Work Phone: [facility] Work Phone: 04-20-2022 14:43-0400 Body temperature 98.6 [degF] Dr. Sánchez Lopez Work Phone: [facility] Work Phone: 04-20-2022 14:43-0400 Body weight 82.[address] Sánchez Lopez Work Phone: [facility] Work Phone: 04-20-2022 14:43-0400 Diastolic blood pressure 72 mm[Hg] Dr. Sánchez Lopez Work Phone: [facility] Work Phone: 04-20-2022 14:43-0400 Heart rate 94 /min Dr. Sánchez Lopez Work Phone: [facility] Work Phone: 04-20-2022 14:43-0400 Respiratory rate 14 /min Dr. Sánchez Lopez Work Phone: [facility] Work Phone: 04-20-2022 14:43-0400 SaO2% (BldA) [Mass fraction] 98 % Dr. Sánchez Lopez Work Phone: [facility] Work Phone: 04-20-2022 14:43-0400 Systolic blood pressure 128 mm[Hg] Dr. Sánchez Lopez Work Phone: [facility] Work Phone: 04-18-2022 07:17-0400 Body temperature 98.6 [degF] Geovany [...] Date Encounter Type Care Provider Facility Start: 07-21-2025 End: 07-21-2025 Patient encounter procedure Skyler Young DO -[facility] Work Phone: Start: 07-21-2025 End: 07-21-[address] Jose Luis Donnelly DO Work Phone: -[facility] Start: 06-27-2025 End: 06-27-[address] Jose Luis Donnelly DO Work Phone: -Ultrasound [facility] Start: 06-27-2025 End: 06-27-[address] Jose Luis Donnelly DO -Ultrasound [facility] Work Phone: Start: 06-27-2025 End: 06-27-2025 ambulatory Jose Luis Donnelly Facility:[facility] Start: 06-24-2025 Encounter for genera l adult medical examination without abnormal [facility] Start: 06-19-2025 End: 06-19-[address] Jose Luis Donnelly DO Work Phone: -Laboratory Saba Moreland [facility] Start: 06-19-2025 End: 06-19-[address] Jose Luis Donnelly DO -Laboratory S[facility] Moreland [facility] Start: 06-19-2025 End: 06-19-2025 ambulatory [facility] Facility:[facility] Start: 05-27-2025 Non-patient / Non-visit Dr. Ramírez Blackwell MD -[facility] Work Phone: Start: 02-03-2025 End: 02-03-[address] Jose Luis Donnelly DO Work Phone: [facility] Work Phone: Start: 02-03-2025 End: 02-03-[address] Erica Ulloa DO -Outpatient Breast Imaging Work Phone: Start: 02-03-2025 End: 02-03-2025 ambulatory [facility] Facility:[facility] Start: 01-29-2025 Encounter for gynecological examination (general) (routine) without abnormal findings Erica Ulloa [facility] Start: 01-29-2025 End: 01-29-[address] Erica Ulloa DO -[facility] Work Phone: Start: 01-29-2025 End: 01-29-[address] Erica Ulloa DO [facility] Start: 01-29-2025 End: 01-29-2025 ambulatory [facility] Facility:[facility] Start: 01-20-2025 End: 01-20-2025 Patient encounter procedure Skyler Young DO -[facility] Work Phone: Start: 01-20-2025 End: 01-20-2025 ambulatory [facility] Facility:[facility] Start: 12-31-2024 ambulatory [facility] Facility: [facility] Start: 12-31-2024 Non-patient / Non-visit Dr. Luis uirbe MD -[facility] Start: 12-31-2024 End: 12-31-2024 Patient encounter procedure Cindi QUINN -Cardiovascular Services Work Phone: Start: 12-31-2024 End: 12-31-2024 ambulatory [facility] Facility:[facility] Start: 11-26-2024 End: 11-26-2024 Patient encounter procedure Cindi QUINN -[facility] Work Phone: Start: 11-26-2024 End: 11-26-2024 ambulatory Jose Luis Cony Facility:[facility] Start: 11-25-2024 End: 11-25-[address] Erica Ulloa DO -Ultrasound, [facility] Work Phone: Start: 11-25-2024 End: 11-25-2024 ambulatory Jose Luis HernandezCony Facility:[facility] Start: 10-18-2024 ambulatory Jose Luis [facility] Facility: [facility] Start: 10-08-2024 End: 10-08-2024 ambulatory [facility] Facility:[facility] Start: 09-30-2024 End: 09-30-2024 ambulatory [facility] Facility:[facility] Start: 08-27-2024 End: 08-27-2024 ambulatory Shante Mann Facility:[facility] Start: 04-02-2024 Non-patient / Non-visit Dr. Александр Donnelly Work Phone: [facility] Start: 04-02-2024 End: 04-02-2024 Admission to same day surgery center Dr. Jose Luis Donnelly Work Phone: [facility]-Endoscopy Work Phone: Start: 04-02-2024 End: 04-02-[address] Jose Luis Donnelly Work Phone: [facility] Work Phone: Start: 01-09-2024 End: 01-09-[address] Jose Luis Donnelly Work Phone: [facility] Work Phone: Start: 01-09-2024 End: 01-09-[address] Jose Luis Donnelly Work Phone: [facility]-Outpatient Breast Imaging Work Phone: Start: 12-26-2023 End: 12-26-[address] Jose Luis Donnelly Work Phone: [facility] Work Phone: Start: 12-11-2023 End: 12-11-[address] Jose Luis Donnelly Work Phone: [facility] Work Phone: Start: 12-11-2023 End: 12-11-[address] Jose Luis Donnelly Work Phone: [facility] Work Phone: Start: 06-02-2023 End: 06-02-[address] Jose Luis Donnelly Work Phone: [facility] Work Phone: Start: 05-31-2023 End: 05-31-[address] Jose Luis Donnelly Work Phone: [facility] Work Phone: Start: 05-31-2023 End: 05-31-[address] Jose Luis Donnelly Work Phone: [facility] Work Phone: Start: 01-03-2023 End: 01-03-[address] Sánchez Lopez Work Phone: [facility] Start: 12-27-2022 End: 12-27-[address] Sánchez Lopez Work Phone: [facility]-Outpatient Breast Imaging Start: 12-22-2022 End: 12-22-[address] Sánchez Lopez Work Phone: [facility] Work Phone: Start: 12-22-2022 End: 12-22-[address] [facility] Start: 12-15-2022 End: 12-15-[address] Sánchez Lopez Work Phone: [facility] Work Phone: Start: 12-15-2022 End: 12-15-[address] Sánchez Lopez Work Phone: [facility]-Cat Scan, [facility] Start: 12-14-2022 End: 12-14-[address] Sánchez Lopez Work Phone: [facility] Start: 11-29-2022 End: 11-29-[address] Sánchez Lopez Work Phone: [facility] Start: 11-11-2022 End: 11-11-[address] Sánchez Lopez Work Phone: [facility] Work Phone: Start: 11-11-2022 End: 11-11-[address] Sánchez Lopez Work Phone: [facility] Start: 09-29-2022 End: 09-29-[address] Sánchez Lopez Work Phone: [facility] Work Phone: Start: 09-29-2022 End: 09-29-[address] Sánchez Lopez Work Phone: [facility] Start: 09-29-2022 End: 09-29-[address] Sánchez Lopez Work Phone: [facility] Start: 09-27-2022 Non-patient / Non-visit Dr. Tomy Lopez Work Phone: [facility] Start: 09-27-2022 Non-patient / Non-visit [facility]. Tomy [facility] Start: 09-27-2022 End: 09-27-[address] Sánchez Lopez Work Phone: [facility]-Cardiovascular Services Start: 08-23-2022 End: 08-23-[address] Sánchez Lopez Work Phone: [facility] Work Phone: Start: 08-23-2022 End: 08-23-[address] Sánchez Lopez Work Phone: [facility] Start: 08-16-2022 End: 08-16-[address] Sánchez Lopez Work Phone: [facility] Start: 08-05-2022 End: 08-05-[address] Sánchez Lopez Work Phone: [facility] Start: 07-26-2022 Non-patient / Non-visit Dr. Tomy Lopez Work Phone: [facility] Start: 07-04-2022 End: 07-04-[address] Sánchez Lopez Work Phone: [facility] Start: 06-28-2022 End: 06-28-2022 Patient encounter procedure Renetta Mccann DO Work Phone: Vascular Surgery Comment on above: Symptomatic varicose veins of left lower extremity (Primary Dx) Start: 06-14-2022 End: 06-14-2022 Patient encounter procedure Renetta Mccann DO Work Phone: Vascular Surgery Comment on above: Symptomatic varicose veins of left lower extremity (Primary Dx) Start: 06-08-2022 Non-patient / Non-visit Dr. Tomy Lopez Work Phone: [facility] Start: 04-20-2022 End: 04-20-[address] Sánchez Lopez Work Phone: [facility] Start: 04-18-2022 End: 04-18-2022 Patient encounter procedure Geovany Dutta MD Work Phone: [facility] Comment on above: Sore throat (Primary Dx) Procedures Date Procedure Procedure Detail Performing Clinician Start: 06-27-2025 Complete ultrasound of kidneys and bladder Dr. Jose Luis Donnelly DO Work Phone: Start: 06-19-2025 Vitamin D, 25-hydrox y measurement Dr. Jose Luis Donnelly DO Work Phone: Comment on above: Vitamin D StatusDefi ciency: <20 ng/mL (50nmol/L)Insufficiency: 20-30 ng/mL (50-75 nmol/L)Sufficiency: 30-100 ng/mL (75-250 nmol/L)Toxicity: >100 ng/mL (>250 nmol/L)Previous reported result: 45.3 ng/mLEdited by: JACOB on 06/19/25:1326 AMENDED REPORT 06/19/25 1326 Vitamin D 25-OH previously reported as: 45.3 ng/mL Vitamin D StatusDeficiency: <20 ng/mL (50nmol/L)Insufficiency: 20-30 ng/mL (50-75 nmol/L)Sufficiency: 30-100 ng/mL (75-250 nmol/L)Toxicity: >100 ng/mL (>250 nmol/L) Start: 02-03-2025 Screening mammography Susie Donnelly DO Work Phone: Start: 11-25-[address] López Donnelly DO Work Phone: Start: 04-02-[address] Jose Luis desai Work Phone: Start: 01-09-2024 Screening mammography Susie Donnelly Work Phone: Start: 05-31-2023 Cytopathology proced ure, preparation of smear, genital source Dr. Jose Luis Donnelly Work Phone: Start: 05-31-2023 Investigation of transfusion reaction Dr. Jose Luis Donnelly Work Phone: Start: 12-27-2022 Screening mammography Susie Lopez Work Phone: Start: 12-15-2022 Computed tomography of abdomen and pelvis with contrast Dr. Sánchez Lopez Work Phone: Start: 11-29-2022 Diagnostic radiograp hy of abdomen Dr. Sánchez Lopez Work Phone: Start: 11-11-[address] Som Lopez Work Phone: Start: 09-29-[address] Som Lopez Work Phone: Start: 04-18-2022 STREP A MOLECULAR (POC) Geovany Dutta MD Work Phone: Plan of Treatment Date Care Activity Detail Author Start: 09-11-2025 ambulatory Ambulatory Facility:[facility] Start: 04-02-2024 Patient discharge [facility] Start: 12-11-[address] [facility] Start: 12-11-2023 Erythropoietin (EPO) [Units/volume] in Serum or Plasma [facility] Start: 12-11-2023 IgG subclass panel [Mass/volume] - Serum [facility] Start: 12-11-2023 Immunoglobulin measurement [facility] Start: 12-11-2023 [facility] Start: 07-28-2022 Influenza vaccination INFLUENZA (#1) [facility] Start: 04-18-2022 End: 05-02-2022 SARS-CoV-2 (COVID-19) RNA [Presence] in Respiratory specimen by VANNESSA with probe detection 2019 [facility] Microbiology Routine Sore throat Expected: 04/18/2022, Expires: 05/02/2022 [facility] Work Phone: Comment on above: Expected: 04/18/2022 , Expires: 05/02/2022 Start: 2012 HPV TESTING HPV TESTING [facility] Start: 2003 PAP TESTING PAP TESTING [facility] Start: 2001 Urine microalbumin profile DTA P,TDAP,TD (1 - Tdap) [facility] Start: 2000 HEPATITIS C SCREENING HEPATITIS C SC MELISSA [facility] Start: 2000 HIV SCREENING HIV SCREENING [facility] Start: 1994 Adult depression scr eening assessment DEPRESSION SCREENING [facility] IgG [Mass/volume] in Serum or Plasma [facility] Measurement of immunoglobulin A in serum specimen [facility] MG Breast - bilatera l Screening [facility] Patient referral [facility] Work Phone: Stress echocardiography [facility] Work Phone: US [facility]vis [facility] Work Phone: [facility] US Pelvis transvaginal [facility] Work Phone: US Pelvis transvaginal [facility] End: 06-14-2023 US VENOUS INCOMPETENCY [facility] US VENOUS INCOMPETENCY [facility] Routine Symptomatic varicose veins of left lower extremity 1 Occurrences starting 06/14/2022 until 06/14/2023 [facility] Work Phone: Comment on above: 1 Occurrences starti ng 06/14/2022 until 06/14/2023 [facility] P[facility] Date Payer Category Payer Self-pay [id number] 2024 Self-pay [id number] 2020 Private Health Insurance [facility] [employer] [employer] [id number] 2020-Present [phone] [address] [place] [address] O [id number] 2014 Unknown [id number] Private Health Insurance [facility] [id number] Private Health Insurance [facility] [id number] Unknown [id number] Unknown [id number] Unknown [id number] .[id number] Unknown [id number] .[id number] Unknown [id number] .462 Unknown [id number] .462 Unknown [id number] .462 Unknown [id number] .462 Unknown [id number] .462 Unknown [id number] .462 Unknown [id number] .462 Unknown [id number] .462 Unknown [id number] .462 Unknown [id number] .462 Unknown [id number] .462 Social History Date Type Detail Facility Start: 09-23-2015 End: 03-27-2024 Tobacco smoking status NHIS Never smoked tobacco [facility] Start: 09-23-2015 Tobacco use and exposure Smokeless tobacco non-user [facility] Start: 04-18-2022 End: 06-28-2022 Alcohol intake Current non-drinker of alcohol (finding) [facility] Start: 1980 Sex Assigned At Not on file [facility] Start: 04-08-2022 End: 06-28-2022 Exposure to SARS-CoV-2 (event) Not sure [facility] Work Phone: Start: 08-05-2022 End: 03-27-2024 Tobacco smoking status NHIS Unknown if ever smoked [facility] Start: 1980 Sex Assigned At Female [facility] Start: 02-13-2025 Sex Female (finding) [facility] Goals Date Patient Goal Desired Activity /State Mental Status Date Assessment Result Facility 04-02-2024 Cognitive function Level Of Cons ciousness Follows Commands;Drowsy [facility] Work Phone: 04-02-2024 Cognitive function Voice/Name [facility] Work Phone: Clinical Notes 11-10-2021 to 06-28-2025 Note Date & Type Note Facility 06-28-2025 Radiology Diagnostic study note [facility] Imaging Services [address] [place] [address] Kidney and Bladder MR#: [id number] Acct: [id number] Name: ELLE VICENTE Rep #: [id number] : 1980 F 44 From: Sarah Amador MD PCP: Dr. Jose Luis Donnelly DO Status: REG CLI Study:Kidney and Bladder Date of Exam: 0 06/27/25 Exam# [id number] Ordering Dr: Jose Luis Donnelly DO PROCEDURE: KIDNEY AND BLADDER 06/27/2025 REASON FOR EXAM: L BACK PAIN TECHNIQUE: KIDNEY AND BLADDER COMPARISON: CT 10/01/2024 FINDINGS: The right kidney measures 11 x 5 x 5 cm, normal echotexture. No hydronephrosis stones or masses. Left kidney measures 11 x 5 x 5 cm, normal echotexture. No hydronephrosis, stones or masses. Bladder is mildly distended. Bilateral jets are present. No definite wall thickening. US/Kidney and Bladder IMPRESSION: No acute findings Reading Location: [place] [address] CC: Dr. Jose Luis Donnelly DO ~ Industrial Paramedic: Signed [facility] 11-26-2024 Evaluation note Diagnosis Onset Date Resolution Splenic vein varix acute Decemb er 2023 8:19am Varicose veins of left leg with edema acute November 26, 024 8:19am Abdominal pain chronic December 292024 1:26pm Chronic constipation chronic Febr uary 2024 1:26pm Polycythemia chronic December 1:26pm Encounter for routine gynecological examination noneactive January 29, 2025 7:56am [facility] Work Phone: [phone] Procedure [facility] 04-02-2024 Procedure [facility]08-02-2022 NoteHNO ID: [id number] Author: Renetta Mccann DO Service: Vascular Surgery Author Type: Physician Type: Progress Notes Filed: 06/29/2022 3:41 PM Note Text: NAME: ELLE VICENTE [facility]INIC NO: [id number] DATE OF SERVICE: 06/28/2022 Subjective: Elle is here to follow up on left [...] Assessment/Plan: Symptomatic varicose veins. Would recommend that Elle would benefit from a left greater saphenous and anterior branch endovenous laser ablation, as symptoms have persisted despite nonintervention therapy and are beginning to impact day-to-day activities. Reviewed the risks, benefits and alternatives and she is agreeable. We will have the office arrange and schedule. Renetta Mccann D.O. KB/089 Audio #: [id number] Date Dictated: 06/28/2022 09:07:14 Date Typed: 06/29/2022 13:31:10 Date Revised:[facility]08-02-2022 NoteHNO ID: [id number] Author: Renetta Mccann DO Service: ? Author Type: Physician Type: Progress Notes Filed: 06/29/2022 2:12 PM Note Text: This office note has been dictated. Renetta Mccann DO'[facility]08-02-2022 History of Present illness Narrative* Renetta Mccann DO - 06/28/2022 10:44 AM EDT This office note has been dictated. Renetta Mccann DO' * Renetta Mccann DO - 06/28/2022 12:00 AM EDT NAME: ELEL VICENTE CLINIC NO: [id number] DATE OF SERVICE: 06/28/2022 Subjective: Elle is here to follow up on left [...] no distress. She has left lower extremity varicoseveins, some prominent subcutaneous tissue at the proximal upper thigh on the left. Reviewed her venous reflux. She has significant reflux of her GSV and AGSV. Assessment/Plan: Symptomatic varicose veins. Would recommend that lEle would benefit from a left greater saphenous and anterior branch endovenous laser ablation, as symptoms have persisted despite noninterventiontherapy and are beginning to impact day-to-day activities. Reviewed the risks, benefits and alternatives and she is agreeable. We will have the office arrange and schedule. Renetta Mccann D.O. KB/089 Audio #: [id number] Date Dictated: 06/28/2022 09:07:14 Date Typed: 06/29/2022 13:31:10 Date Revised: documented [facility] encounter[facility] NoteHNO ID: [id number] Author: Renetta Mccann DO Service: ? Author Type: Physician Type: Progress Notes Filed: 06/14/2022 9:41 AM Note Text: [facility], V[facility] [place] DEPARTMENT OF VASCULAR SURGERY OUTPATIENT VISIT DATE [...] recent labs Most recent imaging IMPRESSION: Ms. Vicente is a 41 year old female with left lower extremity edema, varicose veins . PLAN and RECOMMENDATIONS: Will get venous reflux testing Discussed etiology of edema may be multifactorial and she may lipedema of left proximal thigh Follow up testing to review results and options Continue walking and exercise as tolerated SIGNATURE: Renetta Mccann DO PATIENT NAME: Elle Vicente DATE: June 14, 2022 TIME: 8:09 [facility]07-19-2022 History of Present illness Narrative* Renetta Richards Mccann, DO - 06/14/2022 8:09 AM EDT Images from the original note were not included. Heart, V[facility] [place] DEPARTMENT OF VASCULAR SURGERY OUTPATIENT VISIT DATE [...] problems. Relieving factors include elevation of legs andreduced activity with mild improvement in symptoms. Patient denies DVT, phlebitis and treatment with blood thinners. Noticed the swelling in October. Had venous duplex- negative for DVT. Went to seeorthopedics and had MRI which she was told [...] recent labs Most recent imaging IMPRESSION: Ms. Vicente is a 41 year old female with left lower extremity edema, varicose veins . PLAN and RECOMMENDATIONS: Will get venous reflux testing Discussed etiology of edema may be multifactorial and she may lipedema of left proximal thigh Follow up testing to review results and options Continue walking and exercise as tolerated SIGNATURE: Renetta Mccann DO PATIENT NAME: Elle Vicente DATE: June 14, 2022 TIME: 8:09 AM documented in this encounterJ[facility]. [facility]05-[facility]22 NoteHNO ID: [id number] Author: Geovany Dutta MD Service: ? Author [...] ER if severe. - 2019 CORONAVIRUS Geovany Dutta, [facility]05-23-2022 History of Present illness Narrative* Geovany Dutta MD - 04/18/2022 7:22 AM EDT Patient presents with: Sore Throat: right ear [...] mouth once daily. (Patient not taking: Reported on11/10/2021 ) No current facility-administered medications for this [...] pain, shortness of breath, and lethargy; in theER if severe. - 2019 CORONAVIRUS Geovany Dutta MD documented in this encounterJ.W. [facility]12-[facility]-2021 NoteHNO ID: [id number] Author: Reggie Huggins APRN.PLASTICS WORKER Service: ? Author Type: Nurse Practitioner Type: [...] room for any ne (more content not included)...[facility]* Diagnosis Sore throat- Primary Acute pharyngitis documented in this encounter [facility]* Diagnosis Symptomatic varicose veins of left lower extremity- Primary documented in this encounter [facility]* Diagnosis Symptomatic varicose veins of left lower extremity- Primary documented in this encounter [facility]* Diagnosis Onset Date Resolution Status COVID-19 resolved Chest pain acute [facility] Work Phone: Evaluation note* Diagnosis Onset Date Resolution Status Chest pain acute Disequilibrium acute Cervicalgia chronic Migraine headache chronic [facility] Work Phone: Evaluation note* Diagnosis Onset Date Resolution Status Chest pain acute Disequilibrium acute Cervicalgia chronic Migraine headache chronic Left ovarian cyst acute [facility] Work Phone: Evaluation note* Diagnosis Onset Date Resolution Status Left ovarian cyst acute Encounter for routine gynecological examination noneactive [facility] Work Phone: Evaluation note* Diagnosis Onset Date Resolution Status Left ovarian cyst acute Encounter for routine gynecological examination noneactive Disequilibrium acute Sinusitis acute Cervicalgia chronic Migraine headache chronic [facility] Work Phone: Evaluation note* Diagnosis Onset Date Resolution Status Vaginal discharge noneactive Chronic constipation chronic [facility] Work Phone: Evaluation note* Diagnosis Onset Date Resolution Status Polycythemia acute Abdominal pain chronic Chronic constipation chronic [facility] Work Phone: Evaluation note* Diagnosis Onset Date Resolution Status Polycythemia acute Abdominal pain chronic Chronic constipation chronic Encounter for routine gynecological examination noneactive [facility] Work Phone: Evaluation noteNo assessment information available [facility] Work Phone: History and physical note Author Skyler Friend [facility] April 02, 2024 12:27pm Note Date/Time April 02, 2024 12:27p m [facility] Medical Records Department [address] [place] [id number] History & Physical Exam 04/02/24 1227 MR#: [id number] Acct: [id number] Name: ELLE VICENTE Rep #:[id number] : 1980 43 From: Skyler Friend DO PCP: Dr. Jose Luis Donnelly, DO Status:REG [facility] Location: [place] [address] History and Physical Date of Admission: 04/02/24 43 F who presents to the office today for PCP OV 1.3.23 with LUQ/rib pain and irregular bowel pattern with soft stools andunintended weight gain of 15-20lbs. Notes history of mouth bumps/sores; ENT instructed to gargle with salt water which was not helpful. Omeprazole attemptedand ineffective. ? KUB 1.3.23 without acute/chronic abnormality. ? CT abd/pel 12.15.22 colonic diverticulosis. ? Biochemical 12.19 CBC, ESR, CMP, LDH, CRP, triglycerides, cholesterol, TSH, T4, BAN screen without pertinent abnormality. *BGI established 06.02.23 When apt made she was having severe LLQ pain, PCP seen and treated for diverticulitis and resolved with ATB therapy. This was the initial episode of diverticulitis. Since infection she has been having constipation with no BM for several days followed by several days of small harder stools with some mild abdominal discomfort and one day of frequent loose stools. Prior to infection she was having a normal BM each day. Notes some intermittent epigastric discomfort; does not have active reflux symptoms, is noton PPI. Start Linzess 145mcg. Contact 06.21.23 with concern for abdominal pain, feels it is related to Linzess use. Ok to stop Linzess. Start dicyclomine. ? KUB without acute/chronic finding. ? GET 06.27.23 57.93 minutes (12-56) Contact 07.04.23 with results; she is doing well with start of dicyclomine. OV 12.11.23 she was having LLQ discomfort in the last couple of weeks with history of ovarian cyst, gynecology recommended pain relief and hot compress which was effective. With use of dicyclomine BID she is having much improved frequency and intensity upper abdominal discomfort; upper abdominal discomfort approximately once a week and is self-resolving after hours to days. BM occur atleast every other day, but occur daily with complete evacuation. Quality Reporting Tobacco Screening ([facility]) Smoking Status: Never smoker Assessment and Plan Assessment and Plan (1) Abdominal pain: Status: Chronic (2) Abdominal pain: Status: Chronic (3) Polycythemia: Status: Acute (4) Chronic constipation: Status: Chronic Plan: Review CT scan abdomen pelvis she may have some gastric motility issues may be contributing to her constipation. She has no signs and symptoms of any other abnormalities except for shortness of diverticulitis. She has no fatigue, no bleeding, lethargy or any abnormal signs at this time. For now the differentialdiagnosis includes chronic idiopathic constipation possibly secondary to slow transit constipation, IBS-C versus pelvic floor dysfunction. We will recommended Fiber Choice 1 tab twice a day and Linzess 145 mcg 30 minutes beforefirst meal. She also underwent a gastric emptying study. Her symptoms got worse when she took the Linzess. So we stopped the Linzess andshine has been on dicyclomine. Her bowel movements have been intermittent. She does have migraine disorder that is better controlled under the use of topiramate 25 mg p.o. twice daily. What is interesting is that she does have a prolonged gastric emptying study that can be associated with migraine disorder is not under control. She says she gets clusters of migraines about 1 week per mouth requiring her to take rizatriptan What is also interesting is that her hemoglobin and hematocrit have been persistently elevated over the last 5 years since 2019 and she does notice when her hemoglobin and hematocrit are elevated she does have worsening headaches. Rick not sure if hyperviscosity from her hemoglobin and hematocrit being elevated is contributing to her headaches. I think it is good to do some screening for primary or secondary polycythemia due to the ongoing risk of thrombotic event and progression to leukemia. She has not had any thromboembolic events in the past. She does not take control. She does not smoke cigarettes. She is not around anyone to smoke cigarettes. She does not go to any is of high altitude. She does not have a diagnosis of COPD. She has had her heart checked out and she has no history of congenital or acquired heart disease. She has no kidney disease. She does not take any steroids. On her imaging she did not have any lesions or masses. Therefore we will get erythropoietin level and possibly German 2 mutation pending erythropoietin level. Will also look for other secondary causes of polycythemia... Orders: Orders Erythropoietin Today R10.9 - Unspecified abdominal pain Erythrocyte Sed Rate Today R10.9 - Unspecified abdominal pain Ferritin Today R10.9 - Unspecified abdominal pain Celiac Disease Profile Today R10.9 - Unspecified abdominal pain BAN Comprehensive Panel Today R10.9 - Unspecified abdominal pain LDH Today R10.9 - Unspecified abdominal pain Thyroid Stim Hormone (TSH) Today R10.9 - Unspecified abdominal pain Vitamin B12 Today R10.9 - Unspecified abdominal pain Vitamin D 1,25-Dihydroxy Today R10.9 - Unspecified abdominal pain Free T3 Today R10.9 - Unspecified abdominal pain T4 Free Direct Today R10.9 - Unspecified abdominal pain IgG Subclasses Today R10.9 - Unspecified abdominal pain Immunoglobulins G/A/M/E Today R10.9 - Unspecified abdominal pain ANCA Today R10.9 - Unspecified abdominal pain Medications: Discontinued linaclotide (Linzess) Discontinued Reason: Order Completed 145 mcg PO DAILY 30 caps 11RF I have examined the patient and the H&P has been reviewed. There are no clinicalchanges since date of exam. 04/02/24 1227 <Electronically signed by Skyler Young DO> Cosigner Signature (if applicable): CC: Dr. 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 for referral (narrative)No reason for referral information availableWPro[facility] Work Phone: Health Concerns Infection Onset Date Last Indicated Resolved Time COVID-19 Rule-Out 04/18/2022 04/18/2022 Summary Purpose Family History No Family History Records Found Relationship Condition Age at Onset Recorded Date/T david mother Arthritis Unknown Cardiac disease Unknown aunt Malignant neoplasm of breast Unknown father Malignant neoplasm Unknown Hypertension Unknown Hyperlipidemia Unknown Gilbert's syndrome Unknown grandfather Malignant neoplasm Unknown grandmother Parkinson's disease Unknown Advance Directives No Advanced Directives Records Found Advance Directive Response Recorded Date/ Time Advance Directives No June 27 8:45am Living Will No June 27, 2022 8:45am Power of Sample Preparation Supervisor No June 27 8:45am Advance Directive Response Recorded Date/ Time Advance Directives No June 27, 7:45am Living Will No June 27, 2022 7:45am Power of Sample Preparation Supervisor No June 27 7:45am Advance Directive Response Recorded Date/ Time Advance Directives No January 03, 2023 8:25am Living Will No January 03 8:25am Power of Sample Preparation Supervisor No January 03, 2023 8:25am Advance Directive Response Recorded Date/ Time Advance Directives No January 03, 2023 9:25am Living Will No January 03 9:25am Power of Sample Preparation Supervisor No January 03, 2023 9:25am Advance Directive Response Recorded Date/ Time Advance Directives No January 03, 2023 9:25am Living Will No March 27, 2024 2: 04pm Power of Sample Preparation Supervisor No March 27, 2024 2:04pm Advance Directive Response Recorded Date/ Time Living Will No March 27, 2024 2: 04pm Do you have a [facility] Power of Sample Preparation Supervisor? No March 27, 2024 2:04pm Advance Directives No January 03, 2023 9:25am Advance Directive Response Recorded Date/ Time Advance Directives No January 03, 2023 9:25am Chief Complaint and Reason for Visit Chief Complaint SORE THROAT/SINUS IR RITATION Amb Documentation COVID TEST/SYMPTOMS/ILL X7DAYS Amb Documentation CP, fluttering, Palp. Reason for Visit COVID-19 Chest pain Chief Complaint Amb Documentation COVID TEST/SYMPTOMS/ILL X7DAYS Amb Documentation CP, fluttering, Palp. FOLLOW R/S Reason for Visit Chest pain Disequilibrium Cervicalgia Migraine headache Chief Complaint COVID TEST/SYMPTOMS/ ILL X7DAYS Amb Documentation CP, fluttering, Palp. FOLLOW R/S DIZZINESS AND GIDDINESS Amb Documentation LLQ PAIN, possible ovarian cyst PELVIC PAIN Reason for Visit Chest pain Disequilibrium Cervicalgia Migraine headache Left ovarian cyst Chief Complaint Amb Documentation CP, fluttering, Palp. 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) LT FLANK PAIN W/LEUKOCYTOSIS, LT SHIFT *ORAL & IV* Reason for Visit Left ovarian cyst Encounter for routine gynecological examination Chief Complaint DIZZINESS AND GIDDIN ESS Amb Documentation LLQ PAIN, possible ovarian cyst PELVIC PAIN OVARIAN CYST LABS AND XRAY 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) LT FLANK PAIN W/LEUKOCYTOSIS, LT SHIFT *ORAL & IV* SCREENING 5 M FU Reason for Visit Left ovarian cyst Encounter for routine gynecological examination Disequilibrium Sinusitis Cervicalgia Migraine headache Chief Complaint vaginal burning/lump s Consult Reason for Visit Vaginal discharge Chronic constipation Chief Complaint 5 M Fu E ORDERS Reason for Visit Polycythemia Abdominal pain Chronic constipation Chief Complaint 5 M Fu E ORDERS 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) SCREENING Reason for Visit Polycythemia Abdominal pain Chronic constipation Encounter for routine gynecological examination Chief Complaint Admit Date OVARIAN CYST November 25, 2024 2:18pm CT images November 26, 2024 8:19am LT LOWER CARICOSE VEINS December 31 1:46pm 6 M FU January 20, 2025 1:26pm 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) January 29, 2025 7:56 am screening mammogram February 03, 2025 12: 45pm Reason for Visit Admit Date 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, 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 Varicose veins of left leg with edema De cember 2023 8:19am Abdominal pain January 20, 2025 1:26pm Chronic constipation January 20, 2025 1:26pm Polycythemia January 20, 2025 1:26pm Encounter for routine gynecological exam ination January 29, 2025 7:56am Chief Complaint Admit Date LAB June 19, 2025 8:55 am Chief Complaint Admit Date LAB June 19, 2025 8:55 am L BACK PAIN June 27, 2025 3:4 2pm Chief Complaint Admit Date LAB June 19, 2025 8:55 am L BACK PAIN June 27, 2025 3:4 2pm 6 M FU July 21, 2025 1: 27pm Additional Source Comments Source Comments (unrecognize d [...] (unrecogniz ed section and content) Reason Comments Sore Throat right ear pain x 5 d ays Reason Comments New Patient Reason Comments Follow Up Care Teams (unrecognized sec tion and content) Personal Fitness Trainer Relationship Specialty Start Date End Date Sánchez Lopez MD PCP - General Family Practice 09/23/15 Personal Fitness Trainer Relationship Specialty Start Date End Date Sánchez Lopez MD PCP - General Family Practice 09/23/15 Personal Fitness Trainer Relationship Specialty Start Date End Date Sánchez Lopez MD PCP - General Family Practice 09/23/15 Team Status: Active Member Role Status Dates Dr. Sánchez Lopez MD Family Provider Active Dr. Jose Luis Donnelly DO Primary Care Provider Active Team Status: Inactive Member Role Status Dates Dr. Sánchez Lopez MD Primary Care Provider, Referring Provider Active Dr. Erica Ulloa DO Attending Provider Activ e Team Status: Active Member Role Status Dates Dr. Sánchez Lopez MD Primary Care Provider Active Dr. Abdoulaye Magana MD Attending Provider, Referring Pro vider Active Team Status: Active Member Role Status Dates Dr. Sánchez Lopez MD Primary Care Provider Active Laurence Miller Attending Provider Active Team Status: Inactive Member Role Status Dates Dr. Sánchez Lopez MD Primary Care Provider Active Dr. Abdoulaye Magana MD Attending Provider, Referring Pro vider Active Team Status: Inactive Member Role Status Dates Dr. Sánchez Lopez MD Primary Care Provider Active Dr. Erica Ulloa DO Attending Provider Activ e Team Status: Inactive Member Role Status Dates Dr. Sánchez Lopez MD Primary Care Provider Active Dr. Jose Luis Donnelly DO Attending Provider, Referring P rovider Active Team Status: Active Member Role Status Dates Dr. Jose Luis Donnelly DO Primary Care Prov ider, Attending Provider, Referring Provider Active Team Status: Inactive Member Role Status Dates Dr. Sánchez Lopez MD Referring Provider Active Dr. Fortino Maier MD Attending Provider Active Dr. Jose Luis Donnelly DO Primary Care Provider Active Team Status: Inactive Member Role Status Dates Dr. Erica Ulloa DO Attending Provider, Refe rring Provider Active Dr. Jose Luis Donnelly DO Primary Care Provider Active Team Status: Inactive Member Role Status Dates Dr. Jose Luis Donnelly DO Primary Care Prov ider, Attending Provider, Referring Provider Active Team Status: Inactive Member Role Status Dates Dr. Jose Luis Donnelly DO Primary Care Provider, Referrin g Provider Active Dr. Skyler Young DO Attending Provider Active Team Status: Inactive Member Role Status Dates Dr. Jose Luis Donnelly DO Primary Care Provider, Referrin g Provider Active Kaylen Leslie SUPERVISOR FIREWORKS ASSEMBLY, SUPERVISOR FIREWORKS ASSEMBLY-C Attending Provider Active Team Status: Inactive Member Role Status Dates Dr. Jose Luis Donnelly DO Primary Care Provider Active Kaylen Leslie SUPERVISOR FIREWORKS ASSEMBLY, SUPERVISOR FIREWORKS ASSEMBLY-C Attending Provider, Referring Provider Active Team Status: Inactive Member Role Status Dates Dr. Jose Luis Donnelly DO Primary Care Provider Active Dr. Skyler Young , DO Attending Provider, Referring Provider Active Team Status: Inactive Member Role Status Dates Dr. Jose Luis Donnelly DO Referring Provider Active Dr. Erica Ulloa , DO Attending Provider Activ e Team Status: Active Member Role Status Dates Dr. Jose Luis Donnelly DO Primary Care Provider, Referrin g Provider Active Dr. Skyler Young , DO Attending Provider, Other Prov ider Active Team Status: Active Member Role Status Dates Dr. Jose Luis Donnelly DO Primary Care Provider Active Team Status: Inactive Member Role Status Dates Dr. Jose Luis Donnelly DO Primary Care Provider Active Start: November 25, 2024 End: November 25, 2024 Dr. Erica Ulloa DO Attending Provider Activ e Start: November 25, 2024 End: November 25, 2024 Dr. Erica Ulloa DO Referring Provider Activ e Start: November 25, 2024 End: November 25, 2024 Team Status: Inactive Member Role Status Dates CHEY[place]NE Stein Attending Provider Active Star t: November 26, 2024 End: November 26, 2024 Dr. Skyler Young DO Referring Provider Active Start: November 26, 2024 End: November 26, 2024 Dr. Jose Luis Donnelly DO Primary Care Provider Active Start: November 26, 2024 End: November 26, 2024 Team Status: Inactive Member Role Status Dates Dr. Jose Luis Donnelly DO Primary Care Provider Active Start: December 31, 2024 End: December 31, 2024 [place] Stein Attending Provider Active Star t: December 31, 2024 End: December 31, 2024 [place] Stein Referring Provider Active Star t: December 31, 2024 End: December 31, 2024 Team Status: Active Member Role Status Dates Dr. Jose Luis Donnelly DO Primary Care Provider Active Start: December 31, 2024 Dr. Luis Gutierrez MD Attending Provider Active S tart: December 31, 2024 [place] Stein Referring Provider Active Star t: December 31, 2024 Team Status: Inactive Member Role Status Dates Dr. Jose Luis Donnelly DO Primary Care Provider Active Start: January 20, 2025 End: January 20, 2025 Dr. Jose Luis Donnelly DO Referring Provider Active Start: January 20, 2025 End: January 20, 2025 Dr. Skyler Young DO Attending Provider Active Start: January 20, 2025 End: January 20, 2025 Team Status: Inactive Member Role Status Dates Dr. Jose Luis Donnelly DO Primary Care Provider Active Start: January 29, 2025 End: January 29, 2025 Dr. Jose Luis Donnelly DO Referring Provider Active Start: January 29, 2025 End: January 29, 2025 Dr. Erica Ulloa DO Attending Provider Activ e Start: January 29, 2025 End: January 29, 2025 Team Status: Inactive Member Role Status Dates Dr. Jose Luis Donnelly DO Primary Care Provider Active Start: February 03, 2025 End: February 03, 2025 Dr. Erica Ulloa DO Attending Provider Activ e Start: February 03, 2025 End: February 03, 2025 Dr. Erica Ulloa DO Referring Provider Activ e Start: February 03, 2025 End: February 03, 2025 Team Status: Active Member Role/Relationship Status Dates Dr. Jose Luis Donnelly DO Primary Care Provider Active Team Status: Inactive Member Role/Relationship Status Dates Dr. Jose Luis Donnelly DO Primary Care Provider Active Start: May 27, 2025 Dr. Jewels Blackwell MD Attending Provider Active Start: May 27, 2025 Team Status: Inactive Member Role/Relationship Status Dates Dr. Jose Luis Donnelly DO Primary Care Provider Active Start: June 19, 2025 End: June 19, 2025 Dr. Jose Luis Donnelly DO Attending Provider Active Start: June 19, 2025 End: June 19, 2025 Team Status: Inactive Member Role/Relationship Status Dates Dr. Jose Luis Donnelly DO Primary Care Provider Active Start: June 27, 2025 End: June 27, 2025 Dr. Jose Luis Donnelly DO Attending Provider Active Start: June 27, 2025 End: June 27, 2025 Dr. Jose Luis Donnelly DO Referring Provider Active Start: June 27, 2025 End: June 27, 2025 Team Status: Inactive Member Role/Relationship Status Dates Dr. Jose Luis Donnelly DO Primary Care Provider Active Start: July 21, 2025 End: July 21, 2025 Dr. Jose Luis Donnelly DO Referring Provider Active Start: July 21, 2025 End: July 21, 2025 Dr. Holland Friend , DO Attending Provider Active Start: July 21, 2025 End: July 21, 2025 INFORMATION SOURCE (unrecogn ized section and content) DATE CREATED AUTHOR 06/29/2022 [facility] DATE CREATED AUTHOR AUTHOR'S ORGANIZ ATION 08/13/2025 [facility] Goals (unrecognized section and content) Goals may be documented in a n alternate sectionGoals may be documented in an alternate sectionGoals may be documented in an alternate sectionGoals may be documented in an alternate sectionGoals may be documented in an alternate sectionGoals may be documented in an alternate sectionGoals may be documented in an alternate sectionGoals may be documented in an alternate sectionGoals may be documented in an alternate sectionGoals may be documented in an alternate sectionGoals may be documented in an alternate sectionGoals may be documented in an alternate sectionGoals may be documented in an alternate section FOR RECORDS PERTAINING TO PATIENTS WHO ARE [...] BE BASED ON THE PRIMARY CLINICAL RECORDS. [employer] [facility]. provides no warranty or guarantee of the accuracy or completeness of information in this document.
== END | disposition home or self-care (01) ==
LOC: SL 13:21
PROVIDERS: PCP Family Medicine; Referring Provider Family Medicine; Visit Provider Family Medicine
DX: G47.10 Hypersomnia, unspecified (principal); D75.1 Secondary polycythemia
CPT/HCPCS: 95806